=== PATIENT | female | born 1950 | race Caucasian/White ===

== ENCOUNTER 2019-09-13 07:52 | Outpatient (CLI) | payer MEDICARE, SELFPAY ==
--- NOTE | ~2019-09-13 | CT_ITS ---
EXAMINATION: CT lung screening EXAM DATE: 09/13/2019 09:59 INDICATION: Personal history of nicotine dependence. Shortness of breath. TECHNIQUE: Spiral low dose CT of the chest without contrast. Axial, coronal and sagittal images were reviewed. The dose-length product (DLP) for this examination was 152.31 mGy-cm. The exposure was t ailored according to patient size (auto mA exposure control), and iterative reconstruction (ASIR) was used as additional dose reduction technique. There is no prior study for comparison. FINDINGS: There is mild emphysema and hyperinflation. Tracheobronchial tree is patent. There is n o mediastinal, hilar or axillary lymphadenopathy. There are no pleural or pericardial effusions. There is no pneumothorax. Heart normal in size. There is moderate coronary arterial calcification , arterial sclerosis. Small bilateral nephrolithiasis. Moderate to severe chronic appearing compressi on fractures at T7 and T10. There is moderate thoracic spondylosis without osteoblastic or osteolyti c lesions identified. IMPRESSION: Lung-RADS category 1, negative (<1%chance of malignancy); recommend continued LDCT screen ing in 1 year. Reviewed, dictated and finalized at location A. IMPRESSION: Lung-RADS category 1, negative (<1%chance of malignancy); recommend continued LDCT screening in 1 year.
--- NOTE | 2019-09-13 08:18 | ECHO_ITS ---
Patient Info Name: Berta Jansen Age: 69 years : 1950 Gender: Female Ht: 63 in Wt: 160 lbs BSA: 1.82 m2 HR: 78 bpm BP: 170 / 106 mmHg Technical Quality: Fair Exam Date: 09/13/2019 8:46 AM Exam Location: [facility] Pulmonary Patient Status: Outpatient Admit Date: 09/13/2019 Staff Ordering Physician: Mayi Wilson MD Deaf/Hard Of Hearing Specialist: Jacqueline Salamanca RDCS Attending Provider: Mayi Wilson MD Referring Physician: Steve HAIDER; Exam Type: CA echo dop color flow w con Study Info Indications - SOB Complete two-dimensional, color flow and Doppler transthoracic echocardiogram is performed with contrast to opacify the left ventrical and to improve the deliniation of the left ventrical endocarial boarders. Contrast/Agitated Saline Contrast/Ag. Saline: Definity Amount: 1.00 ml Administered By: Jerod Zavaleta RN New IV Access: Right Site Condition: Site dressing applied Summary 1. Left ventricular chamber dimension is normal. 2. Definity contrast administered improved wall motion interpretation. 3. Ventricular septum is sigmoid shaped. 4. Left ventricular systolic function is normal, estimated at 60-65%. 5. There is mildly increased left ventricular wall thickness. 6. The left ventricular diastolic function is grade I diastolic dysfunction. 7. E/e' 11 is mildly elevated. 8. Left atrial chamber dimension is mildly enlarged. 9. There is mild aortic valve sclerosis. 10. The mitral valve has moderately calcified annulus. 11. There is trace mitral valve regurgitation. 12. There is trace tricuspid valve regurgitation. 13. No pulmonary hypertension, estimated pulmonary arterial systolic pressure is 29 mmHg. Left Ventricle Definity contrast administered improved wall motion interpretation. E/e' 11 is mildly elevated. Ventricular septum is sigmoid shaped. Left ventricular chamber dimension is normal. Left ventricular systolic function is normal, estimated at 60-65%. There is mildly increased left ventricular wall thickness. The left ventricular diastolic function is grade I diastolic dysfunction. Right Ventricle Right ventricular chamber dimension is normal. Right ventricular systolic function is normal. Left Atria Left atrial chamber dimension is mildly enlarged. Right Atria Right atrial chamber dimension is normal. Aortic Valve The aortic valve is trileaflet. There is mild aortic valve sclerosis. There is no aortic valve stenosis. There is no aortic valve regurgitation. Pulmonic Valve There is no pulmonic regurgitation. Mitral Valve The mitral valve has moderately calcified annulus. There is no mitral valve stenosis. There is trace mitral valve regurgitation. Tricuspid Valve There is trace tricuspid valve regurgitation. No pulmonary hypertension, estimated pulmonary arterial systolic pressure is 29 mmHg. Pericardium/Pleural There is no pericardial effusion. Inferior Vena Cava Normal inferior vena cava with >50% collapse upon inspiration consistent with normal right atrial pressure, 5 mmHg. Aorta The aortic root size at the sinus of Valsalva is normal. Left Ventricular Outflow Tract Name Value Normal LVOT 2D
[2019-09-13 08:47] LABS: Basophils Percent Auto 0.6 % (0.2-1.2); Eosinophils Absolute Auto 0.2 K/mm3 (0-0.3); Eosinophils Percent Auto 2.8 % (0-4.4); Hematocrit 39.6 % (37.0-47.0); Hemoglobin 12.4 g/dL (12.0-15.0); Immature Granulocyte Absolute 0.05 K/mm3 (0.00-0.031); Immature Granulocyte Percent A 0.8 % (0-0.5); Lymphocytes Absolute Auto 1.53 K/mm3 (0.9-3.2); Lymphocytes Percent Auto 24.8 % (18.3-44.2); Mean Corpuscular HGB Conc 31.3 g/dl (32-36); Mean Corpuscular Hemoglobin 29.8 pg (26-34); Mean Corpuscular Volume 95.2 fl (80-100); Mean Platelet Volume 10.8 fl (7.4-10.4); Monocytes Absolute Auto 0.6 K/mm3 (0.1-0.6); Monocytes Percent Auto 8.9 % (2.6-8.5); Neutrophils Absolute Auto 3.8 K/mm3 (1.3-6.7); Neutrophils Percent Auto 62.1 % (45.5-73.1); Platelet Count Result 189 k/mm3 (150-375); Red Blood Count 4.16 M/mm3 (4.2-5.4); Red Cell Distribution Width 14.6 % (11.5-14.5); White Blood Count 6.2 K/mm3 (4.5-10.0)
[2019-09-13] MEDS: PERFLUTREN LIPID MICROSPHERES 1.5 ML VIAL DILUTED TO 10 ML TOTAL VOLUME IV PUSH (09:43)
[2019-09-16 04:46] LABS: Immunoglobulin G, Serum 1139 mg/dL (600-1540); Immunoglobulin G1 494 mg/dL (382-929); Immunoglobulin G2 549 mg/dL (241-700); Immunoglobulin G3 151 mg/dL (22-178); Immunoglobulin G4 20.1 mg/dL (4.0-86.0)
== END 2019-09-13 07:53 | disposition home or self-care (01) ==
PROVIDERS: Visit Provider Internal Medicine Critical Care Medicine
DX: R06.02 Shortness of breath (principal); Z87.891 Personal history of nicotine dependence; J32.9 Chronic sinusitis, unspecified; I51.7 Cardiomegaly; I25.10 Atherosclerotic heart disease of native coronary artery without angina pectoris
CPT/HCPCS: 36415; 82784; 82785; 82787; 85025; 86003; C8929; G0297

== ENCOUNTER 2020-08-28 13:43 | Outpatient (CLI) | payer MEDICARE, SELFPAY ==
--- NOTE | ~2020-08-28 | CT_ITS ---
EXAMINATION: CT lung screening EXAM DATE: 08/28/2020 14:00 INDICATION: Personal history of nicotine dependence. TECHNIQUE: Spiral low dose CT of the chest without contrast. Axial, coronal and sagittal images were reviewed. The dose-length product (DLP) for this examination was 179.30 mGy-cm. The exposure was t ailored according to patient size (auto mA exposure control), and iterative reconstruction (ASIR) was used as additional dose reduction technique. Comparison is made to prior examination from 09/13/2019. FINDINGS: There is mild emphysema and moderate hyperinflation. There are small regions of mild inter lobular septal thickening again noted, probably mild interstitial lung disease. No suspicious nodular opacities. Tracheobronchial tree is patent. There is no mediastinal, hilar or axillary lymphadenop athy. There are no pleural or pericardial effusions. There is no pneumothorax. Heart normal in size. There is moderate to severe coronary arterial calcification, arterial sclerosis. Small bilat eral nephrolithiasis. Cholelithiasis. Nodular liver contour suspicious for cirrhosis. There is thora cic spondylosis without osteoblastic or osteolytic lesions identified. Thoracic compression fractures are unchanged. IMPRESSION: Lung-RADS category 1, negative (<1%chance of malignancy); recommend continued LDCT screen ing in 1 year. > Reviewed, dictated and finalized at location A. ICULUM DIRECTOR IMPRESSION: Lung-RADS category 1, negative (<1%chance of malignancy); recommend continued LDCT screening in 1 year. >
== END 2020-08-28 13:44 | disposition home or self-care (01) ==
PROVIDERS: Visit Provider Internal Medicine Critical Care Medicine
DX: Z12.2 Encounter for screening for malignant neoplasm of respiratory organs (principal); Z87.891 Personal history of nicotine dependence
CPT/HCPCS: 71271

== ENCOUNTER 2021-09-24 09:49 | Outpatient (CLI) | payer MEDICARE, SELFPAY ==
--- NOTE | ~2021-09-24 | CT_ITS ---
EXAMINATION: CT lung screening DATE: 09/24/2021 10:06 INDICATION: Personal history of nicotine dependence, prior smoker with 40 pack year history TECHNIQUE: Computed tomography (CT) of the chest was performed without intravenous contrast. The dose -length product (DLP) was 183.93 mGy-cm. Automated exposure control and iterative reconstruction tech Promuc were employed. COMPARISON: 08/28/2020 FINDINGS: There is mild emphysema. No suspicious pulmonary nodules are identified. The lungs are free of acute opacities. There is no pleural effusion or pneumothorax. No pathologically enlarged thoraci c lymph nodes are identified. The heart size is normal. There is calcified coronary artery atheroscle rosis. Stones are present in the nondistended gallbladder. There are nonobstructing stones of the kid neys. Compression fractures of the thoracic spine are unchanged. There is severe thoracic spondylosis . IMPRESSION: 1. Lung-RADS category 2: Benign appearance or behavior. Continue annual screening with noncontrast lo w-dose chest CT in 12 months. Reviewed, dictated and finalized at location A. IMPRESSION: 1. Lung-RADS category 2: Benign appearance or behavior. Continue annual screeni ng with noncontrast low-dose chest CT in 12 months.
== END 2021-09-24 09:50 | disposition home or self-care (01) ==
LOC: ANHIMG 09:52
PROVIDERS: Visit Provider Nurse Practitioner Family
DX: Z87.891 Personal history of nicotine dependence (principal)
CPT/HCPCS: 71271

== ENCOUNTER 2021-12-14 08:42 | Outpatient (CLI) | payer MEDICARE, SELFPAY ==
--- NOTE | ~2021-12-14 | MR_ITS ---
EXAMINATION: MR shoulder LT wo con DATE: 12/14/2021 10:05 INDICATION: Left shoulder pain and weakness TECHNIQUE: Magnetic resonance imaging (MRI) of the left shoulder was performed without intravenous co ntrast. Sequences included axial PD-weighted FS FSE, coronal oblique PD-weighted FS FSE, coronal obli que T2-weighted FS FSE, sagittal PD-weighted FS FSE, and sagittal T1-weighted SE. COMPARISON: None. FINDINGS: Coracoacromial arch: The acromion undersurface is curved in morphology (type II). The coracoacromial ligament is normal. M ild acromioclavicular osteoarthritis. Rotator cuff: Mild supraspinatus and moderate infraspinatus tendinopathy. There is a small bursal sided tear at the conjoined portion of the supraspinatus and infraspinatus tendons. The tear at its widest along the b ursal surface where it measures 6 mm AP and extends up to 1.5 cm medially from the greater tuberosity footplate. The tear appears to involve up to two thirds of the tendon thickness. The teres minor ten don is normal. Mild subscapularis tendinopathy without discrete tear. Normal rotator cuff muscle bulk and signal. Biceps tendon, glenoid labrum and glenohumeral cartilage: Likely full-thickness tear of the long head biceps tendon with frayed and attenuated tendon tear laura in at the proximal aspect of the intertubercular groove. The more caudal intertubercular groove and a long head biceps tendon sheath appears empty with likely retraction of the distal tear margin. Articu lar cartilage appears normal although assessment is somewhat limited by some motion blurring on multi ple sequences. There is degenerative tearing of the superior to posterior superior glenoid labrum whi ch appears thickened with diffuse amorphous increased signal. More well-defined linear tear along the free edge of the posterior glenoid labrum. Fluid: Physiologic amount of fluid in the glenohumeral joint and biceps tendon sheath. No loose osteochondr al bodies. Small amount of fluid in the subacromial/subdeltoid bursa consistent with mild bursitis. Bones: Normal marrow signal with no edema, fracture or pathologic marrow replacing process. IMPRESSION: 1. Mild to moderate rotator cuff tendinopathy with small moderate severity bursal sided tear at the i nsertion of the conjoined portion of the supraspinatus and infraspinatus tendons. 2. Tear of the superior to posterior glenoid labrum. 3. Complete tear and distal retraction of the long head biceps tendon which appear to occur near the junction of the intra-articular and extra-articular portions of the tendon. 4. Mild acromioclavicular osteoarthritis with mild underlying subacromial/subdeltoid bursitis. Reviewed, dictated and finalized at location A. IMPRESSION: 1. Mild to moderate rotator cuff tendinopathy with small moderate severity burs al sided tear at the insertion of the conjoined portion of the supraspinatus an d infraspinatus tendons. 2. Tear of the superior to posterior glenoid labrum. 3. Complete tear and distal retraction of the long head biceps tendon which kenan ear to occur near the junction of the intra-articular and extra-articular porti ons of the tendon. 4. Mild acromioclavicular osteoarthritis with mild underlying subacromial/subde ltoid bursitis.
== END 2021-12-14 08:43 | disposition home or self-care (01) ==
PROVIDERS: Visit Provider Orthopaedic Surgery
DX: S43.492A Other sprain of left shoulder joint, initial encounter (principal); S46.112A Strain of muscle, fascia and tendon of long head of biceps, left arm, initial encounter; X58.XXXA Exposure to other specified factors, initial encounter; M19.012 Primary osteoarthritis, left shoulder
CPT/HCPCS: 73221

== ENCOUNTER 2022-06-27 10:20 | Outpatient (CLI) | payer MEDICARE, SELFPAY ==
--- NOTE | 2022-06-27 10:34 | ECG_ITS ---
Measurements Intervals [place] Rate: 81 P: 16 IA: 136 QRS: 1 QRSD: 70 T: 1 QT: 375 QTc: 436 Interpretive Statements SINUS RHYTHM NO PREVIOUS ECG AVAILABLE FOR COMPARISON Electronically Signed On 06-27-2022 14:59:00 [employer]ILL[employer] OFFICER by Asif De Luna M.D.
[2022-06-27 11:13] LABS: Alanine Aminotransferase 29 U/L (6-35); Albumin Level 3.9 g/dL (3.5-5.1); Alkaline Phosphatase 64 U/L (38-126); Anion Gap 4 mmol/L (8-16); Aspartate Amino Transferase 50 U/L (14-36); Bilirubin,Total 0.9 mg/dL (0.2-1.3); Blood Urea Nitrogen 18 mg/dL (7-17); Calcium 8.3 mg/dL (8.4-10.2); Carbon Dioxide 31 mmol/L (22-30); Chloride 102 mmol/L (98-107); Cholesterol 166 mg/dL (0-200); Estimated Glomerular Filt Rate 49; Glucose 105 mg/dL (65-110); HDL Direct 49 mg/dL; Sodium 137 mmol/L (137-145); Triglycerides 104 mg/dL (<150)
[2022-06-27 11:14] LABS: Basophils Absolute Auto 0.1 K/mm3 (0.0-0.1); Basophils Percent Auto 0.9 % (0.2-1.2); Eosinophils Absolute Auto 0.1 K/mm3 (0-0.3); Eosinophils Percent Auto 2.1 % (0-4.4); Hematocrit 41.9 % (37.0-47.0); Hemoglobin 13.3 g/dL (12.0-15.0); Immature Granulocyte Absolute 0.03 K/mm3 (0.00-0.031); Immature Granulocyte Percent A 0.5 % (0-0.5); Lymphocytes Absolute Auto 1.93 K/mm3 (0.9-3.2); Lymphocytes Percent Auto 33.7 % (18.3-44.2); Mean Corpuscular HGB Conc 31.7 g/dl (32-36); Mean Corpuscular Hemoglobin 30.9 pg (26-34); Mean Corpuscular Volume 97.2 fl (80-100); Mean Platelet Volume 10.4 fl (7.4-10.4); Monocytes Absolute Auto 0.5 K/mm3 (0.1-0.6); Monocytes Percent Auto 8.2 % (2.6-8.5); Neutrophils Absolute Auto 3.1 K/mm3 (1.3-6.7); Neutrophils Percent Auto 54.6 % (45.5-73.1); Platelet Count Result 162 k/mm3 (150-375); Red Blood Count 4.31 M/mm3 (4.2-5.4); Red Cell Distribution Width 14.5 % (11.5-14.5); White Blood Count 5.7 K/mm3 (4.5-10.0)
[2022-06-27 11:24] LABS: LDL Cholesterol Direct 73 mg/dL
[2022-06-27 12:01] LABS: Vitamin D 25 Hydroxy > 126.0 ng/mL
[2022-06-27 12:12] LABS: Hemoglobin A1C 6.4 % (<5.7)
== END 2022-06-27 10:21 | disposition home or self-care (01) ==
PROVIDERS: PCP Physician Assistant Medical; Visit Provider Physician Assistant Medical
DX: J45.909 Unspecified asthma, uncomplicated (principal); I10 Essential (primary) hypertension; M81.0 Age-related osteoporosis without current pathological fracture; R73.01 Impaired fasting glucose; R53.83 Other fatigue; E66.9 Obesity, unspecified; R06.02 Shortness of breath; M75.102 Unspecified rotator cuff tear or rupture of left shoulder, not specified as traumatic; F17.210 Nicotine dependence, cigarettes, uncomplicated; Z01.818 Encounter for other preprocedural examination
CPT/HCPCS: 36415; 80053; 80061; 82306; 83036; 84443; 85025; 87081; 93005

== ENCOUNTER 2022-07-03 01:21 | Day surgery (SDC) | payer MEDICARE, SELFPAY ==
[2022-06-18 08:39] VITALS: BMI 30.2
--- NOTE | 2022-06-18 08:52 | PC.NURSE ---
PRE-OP INSTRUCTIONS, PLEASE READ CAREFULLY Report to the Outpatient Waiting Room, entrance under the green pavilion located off [facility], at time _0600_ on date _07/03/22_. Planned Procedure Time: _0730_. Time changes happen often and if your time is changed the preop area will call you the afternoon before. - You and your visitor will be asked to self-screen and do not enter if you have any COVID symptoms. - Only one visitor is requested with a max of two and NO children visitors are allowed at this time. - The patient visitor may be requested to leave or wait in car when not with patient due to distancing restrictions. - A mask is required within the hospital. Patients may have clear liquids (water, carbonated beverages, clear teas, apple juice) until 3 hours prior to surgery (0430 AM) with a maximum of 20 ounces. - No food from midnight until time of surgery Take the following medications with a SIP of water the morning of surgery: _LORAZEPAM, ANORO INHALER__ Medications to discontinue per ANESTHESIA - _VITAMINS/SUPPLEMENTS 3 DAYS PRIOR TO SURGERY, Date to take last dose 06/29/22_ Please no make-up, nail kyrgyz, hairspray, perfume, deodorant, or body powder the day of surgery. No jewelry (including any body piercings) or valuables the day of surgery, leave them at home. Please take a shower or bath the night before, or the morning of, surgery with an antibacterial soap. Wear comfortable, loose fitting clothing. - Jewelry must be removed prior to entering the operating room. Rings and piercings that are not removed may be cut off. - The hospital will not accept responsibility for valuables. - Please leave all valuables, including medications, at home the day of surgery. If you are going home after surgery, a licensed transit driver must drive you home. - NO public transportation without another adult if you receive anesthesia. - We recommend that an adult stay with you for 24 hours following discharge. - We also recommend that you do not drive, make important decision, drink alcoholic beverages, or take any drugs that were not prescribed by your health care provider for at least 24 hours after your discharge time. Follow any additional instructions given to you from your surgeon. If you or anyone in your household have experienced Covid symptoms in the past week, please notify your surgeon or the nurse liaison at the phone number below for possible testing. Telephone instructions given to _PATIENT_and asked if any additional questions and then verbalized understanding. Patient advised to call surgeon office or pre surgery nurse liaison [phone] if any additional questions.
--- NOTE | 2022-06-26 12:57 | PM.IMHP ---
H&P: HPI History of Present Illness Date/Time: 06/26/22 12:57 Chief Complaint: Rotator cuff tear left shoulder Narrative: 72-year-old female who presents today for arthroscopy with mini open left shoulder with rotator cuff repair. Patient is having pain in the shoulder for the better part of this year. She did have a cortisone injection in November following MRI scan which showed significant thinning of the supraspinatus as well as the infraspinatus tendon. There also appears to be a chronic tear of the biceps tendon. Unfortunately she did not get significant improvement of her symptoms from the injection. She states she cannot sleep at night due to the pain in the shoulder. Most pain is over the lateral deltoid. At times it is rather severe and debilitating. Patient feels this point she would rather proceed with repair of the rotator cuff tendon rather than a continuing to treat this nonsurgically. Review of Systems Review of Systems: All systems reviewed & are unremarkable except as noted in HPI and below PMFSH Past Medical History Medical History Anxiety Arthritis Asthma Fatigue GERD (gastroesophageal reflux disease) History of tobacco abuse Osteoporosis Recurrent sinus infections Surgical History Surgical History History of hip replacement 2016 History of hysterectomy 1986 Family History Family History Father Heart disease Mother Carcinoma Dementia Sibling Liver failure Heart attack Social History Social History Social History: worked as an [employer]; worked in the [employer] at [employer] x 18 years; Worked at an [employer] in [place] for 2 years. Smoking packs per day: 1.5 Smoking cigarettes per day: 30.0 Years smoked: 40 Smoking pack-years: 60.00 Smoking status: Former smoker Tobacco type: cigarettes Second hand tobacco smoke exposure: No Smoking end date: 07/01/09 Alcohol intake: current Drinks per week: 2 Substance use: never Substance use type: does not use Lack of Transportation: No Lack of Food: Never True Current Housing: I Have Housing Concerned About Future Housing: No Difficulty Paying Gas/Electric Bills: No Difficulty Paying for Meds: No Currently Unemployed: No Education: High School Diploma/GED Difficulty w/ Childcare or Family Care: No Living arrangements: with family Occupation/Education: occupation Gender identity (if verbalized by the patient): Female Sexual Orientation (if Verbalized by the Patient): Straight or Heterosexual Spiritual care concerns: No Meds Home Medications and Allergies Home Medications Medication Instructions Recorded Confirmed Type calcium carbonate 600 mg calcium 1,200 mg PO DAILY 08/27/19 06/20/22 History (1,500 mg) tablet (Calcium) multivitamin (Multiple Vitamins 1 tablet PO DAILY 08/27/19 06/20/22 History tablet) Anoro Ellipta 62.5 mcg-25 1 inh inhalation Q24H #60 ea 07/18/21 06/20/22 Rx mcg/actuation powder for inhalation (umeclidinium-vilanterol) B-complex with vitamin C 1 tablet PO DAILY 06/18/22 06/20/22 History cholecalciferol (vitamin D3) 125 125 mcg PO DAILY 06/18/22 06/20/22 History mcg (5,000 unit) capsule magnesium 250 mg tablet 250 mg PO DAILY 06/18/22 06/20/22 History albuterol sulfate 90 mcg/actuation 1 - 2 puff inhalation Q4-6H PRN 06/20/22 06/20/22 Rx aerosol inhaler shortness of breath or wheezing #8.5 grams fluocinonide 0.05 % topical cream 1 applic topical BID PRN itching 06/20/22 06/20/22 Rx #60 grams lorazepam 0.5 mg tablet 0.5 mg PO BID PRN Anxiety #60 tabs 06/20/22 06/20/22 Rx omeprazole magnesium 20 mg 20 mg PO DAILY #90 tabs 06/20/22 06/20/22 Rx tablet,delayed release (Pril
--- NOTE | 2022-07-02 13:05 | WPDANESEPPF ---
Anes - Initial Pre Proc Eval Procedure: Operation Date: 07/03/22 07:30 Proposed Procedures p Left Shoulder Arthroscopy, Mini Rotator Cuff Repair, Probable Arthroflex Patch, Proceed as Indicated - Mainor Roberto MD Date/Time: 07/02/22 13:05 Surgeon: Mainor Roberto MD Pre Op Diagnosis: Chronic left shoulder rotator cuff tear Patient Data Age: 72 Gender: F Height: 1.57 m Weight: 75 kg Allergies Allergy/AdvReac Type Severity Reaction Status Date / Time adhesive tape AdvReac Mild SKIN Verified 07/03/22 06:46 IRRITATION Home Medications Medication Instructions Recorded Confirmed Type calcium carbonate 600 mg calcium 1,200 mg PO DAILY 08/27/19 07/03/22 History (1,500 mg) tablet (Calcium) multivitamin (Multiple Vitamins 1 tablet PO DAILY 08/27/19 07/03/22 History tablet) Anoro Ellipta 62.5 mcg-25 1 inh inhalation Q24H #60 ea 07/18/21 07/03/22 Rx mcg/actuation powder for inhalation (umeclidinium-vilanterol) B-complex with vitamin C 1 tablet PO DAILY 06/18/22 07/03/22 History cholecalciferol (vitamin D3) 125 125 mcg PO DAILY 06/18/22 07/03/22 History mcg (5,000 unit) capsule magnesium 250 mg tablet 250 mg PO DAILY 06/18/22 07/03/22 History albuterol sulfate 90 mcg/actuation 1 - 2 puff inhalation Q4-6H PRN 06/20/22 07/03/22 Rx aerosol inhaler shortness of breath or wheezing #8.5 grams fluocinonide 0.05 % topical cream 1 applic topical BID PRN itching 06/20/22 07/03/22 Rx #60 grams lorazepam 0.5 mg tablet 0.5 mg PO BID PRN Anxiety #60 tabs 06/20/22 07/03/22 Rx omeprazole magnesium 20 mg 20 mg PO DAILY #90 tabs 06/20/22 07/03/22 Rx tablet,delayed release (Prilosec OTC) Patient hx anesthesia problems: none Family hx anesthesia problems: none Results Review: All pre-operative results and documents have been reviewed as part of the pre-operative evaluation. [facility] Past Medical History Medical History (Updated 07/02/22 @ 13:06 by Jerome Sierra MD) Anxiety Arthritis Asthma COPD (chronic obstructive pulmonary disease) Fatigue GERD (gastroesophageal reflux disease) History of tobacco abuse HTN (hypertension) Obesity (BMI 30-39.9) Osteoporosis Recurrent sinus infections SOB (shortness of breath) Surgical History Surgical History History of hip replacement 2016 History of hysterectomy 1986 Family History Family History Father Heart disease Mother Carcinoma Dementia Sibling Liver failure Heart attack Social History Social History Social History: worked as an [employer]; worked in the [employer] at [employer] x 18 years; Worked at an [employer] in [place] for 2 years. Smoking packs per day: 1.5 Smoking cigarettes per day: 30.0 Years smoked: 40 Smoking pack-years: 60.00 Smoking status: Former smoker Tobacco type: cigarettes Second hand tobacco smoke exposure: No Smoking end date: 07/01/09 Alcohol intake: current Drinks per week: 2 Substance use: never Substance use type: does not use Lack of Transportation: No Lack of Food: Never True Current Housing: I Have Housing Concerned About Future Housing: No Difficulty Paying Gas/Electric Bills: No Difficulty Paying for Meds: No Currently Unemployed: No Education: High School Diploma/GED Difficulty w/ Childcare or Family Care: No Living arrangements: alone Gender identity (if verbalized by the patient): Female Sexual Orientation (if Verbalized by the Patient): Straight or Heterosexual Spiritual care concerns: No Anes - Eval Final PreProcedure Day of Procedure 07/02/22 13:05 Patient weight: obese Heart: regular rate and rhythm Lungs: clear to auscultation and normal air movement Airway: Mallampati scale class II Neurological:
[2022-07-03] VITALS (8 sets, daily range): BP systolic 145–156; BP diastolic 65–85; PULSE 69–91; RESP 16–20; TEMP 36.8; O2SAT 92–98
[2022-07-03] MEDS: LACTATED RINGERS 1,000 ML 30 ML IV CONT ×2 (06:40→10:41)
[2022-07-03] MEDS: ACETAMINOPHEN 500 MG TABLET 1000 MG PO (06:44)
[2022-07-03] MEDS: KETOROLAC 15 MG/ML VIAL (*BKC) IV PUSH (06:45)
--- NOTE | 2022-07-03 07:12 | WPDHPUPDATE1 ---
History and Physical Update Update Date/Time: 07/03/22 07:12 History and Physical has been reviewed, including an updated exam of the patient. There are NO changes in the patient's condition. Risks, benefits, and alternatives have been discussed and questions answered. Patient agrees to proceed with procedure.
[2022-07-03] MEDS: ceFAZolin 2 GM/D5W 50 ML 2 GM/50 ML BAG IVPB (07:28)
[2022-07-03] MEDS: ceFAZolin SODIUM 1 GM VIAL (08:23)
--- NOTE | 2022-07-03 10:22 | PM.OP ---
Procedure Note - Brief Procedure Note - Brief Date of procedure: 07/03/22 <KRISTEN Lagos - Last Filed: 07/03/22 10:23> 07/03/22 <Mainor Roberto MD - Last Filed: 07/03/22 10:33> Pre-op diagnosis: Chronic left shoulder rotator cuff tear <KRISTEN Lagos - Last Filed: 07/03/22 10:23> Rotator cuff tear left shoulder <KRISTEN Lagos - Last Filed: 07/03/22 10:23> Procedure performed: Arthroscopy left shoulder with mini open rotator cuff repair and dermal patch augmentation <KRISTEN Lagos - Last Filed: 07/03/22 10:23> Description of procedure: 72-year-old female underwent above said procedure. I was involved in the procedure including positioning patient on the OR table as well as 1st chemical laboratory assistant to the time of surgery and getting patient to recovery. Total time spent was 3 hours per <KRISTEN Lagos - Last Filed: 07/03/22 10:23> Surgeon: KRISTEN Lagos <KRISTEN Lagos - Last Filed: 07/03/22 10:23>
--- NOTE | 2022-07-03 10:33 | W.PM.PROC2 ---
Procedure Note - Detailed Date of Procedure 07/03/22 Pre-op Diagnosis Chronic left shoulder rotator cuff tear Post-op Diagnosis Same Procedure Performed Arthroscopic debridement of stump of long head of biceps and mini open rotator cuff repair left rotator cuff tear with Arthrex acellular dermal allograft augmentation to the repair Surgeon Mainor Roberto MD [employer] Bertha Anesthesia General Description of Procedure Patient was brought to the operating room and general anesthesia was administered. She was placed in the beach chair position with the head carefully supported. She had significant upper thoracic kyphosis. She received 2 g of Ancef in weight based vancomycin preoperatively. She did not receive an interscalene block before surgery because of her history of COPD and the increased risk of hypoxia with a block. The left shoulder was prepped draped usual fashion. Standard posterior portal was placed. There was mild chondromalacia anterior aspect of the humeral head. There was degenerative fraying diffusely of the labrum. The long head of the biceps stump was visualized and partially scarred to the overlying rotator cuff interval. The loose portion of the stump was debrided with motorized shaver. The moderate size high-grade articular sided partial-thickness tear was visualized with the full-thickness tear of the supraspinatus tendon visualized. The arthroscope was placed in subacromial space. Anterior outflow portal placed mid lateral portal placed and we gently debrided the subacromial bursal tissue and used the ArthroCare to ablate the coracoacromial ligament tissue and the undersurface of the anterior aspect of the acromion for some decompression. She had a type 1 acromial morphology and therefore we did not remove any acromial bone. The rest the skin was covered with Ioban at this time and outer gloves were changed. A 1-3/4 inch longitudinal incision was made over the tendinous raphe between anterior and middle heads of the deltoid which was incised and about 6 mm of anterior deltoid elevated off the anterior acromion and a self-retaining retractor was placed. The rotator cuff tear was visualized. There was a longitudinal component and we could see that this was an L-shaped tear the longitudinal component involving the anterior supraspinatus tendon. There was still a anterior cord attached and the rotator cuff interval was intact. The full-thickness portion was about a cm wide and then high-grade articular sided partial thickness portion about another cm posteriorly. The greater tuberosity was carefully prepared and there was no significant tissue on the tuberosity so scraping it with the clean 15 blade scalpel cause adequate bleeding and a 2 mm bur was used to make multiple holes for passage of suture adjacent to the articular surface. The tendon itself mobilized easily. We placed a side to side stitch and then a corner stitch through bone and additional 3 2. F Ethibond through bone in a converging fashion to create a spherical contour to the repaired tendon. Again the tendon was clearly thinned and I felt she was therefore at higher risk for recurrent tear an unsatisfactory outcome and less tissue augmentation was utilized. Therefore we opened the package of acellular dermal allograft from ArthArtaic 1.75 thickness and we marked the bursal surface side with marking pen and bathed the graft in Ancef solution the wound was again thoroughly irrigated with Ancef solution. We trimmed the graft down to about 3 x 3 cm and used 0 Ethibond approximately 20 of them to repair the edge of the allograft patch to the supraspinatus infraspinatus and rotator cuff interval tissues stretching it snugly as we went and when we had repaired approximately 240? of the cephalad 2/3 of the graft we found excellent fixation pulling the graft distally with the proximal repair. We then used 2 2. Ethibond placed through the medial aspect of the greater tuberosity and
[2022-07-03] MEDS: oxyCODONE HCL (*CRX) 5 MG TAB IR PO (12:30)
== END 2022-07-03 12:34 | disposition home or self-care (01) ==
PROVIDERS: PCP Physician Assistant Medical; Visit Provider Orthopaedic Surgery
PROC: (CPT 29805; principal; 2022-07-03 07:30)
DX: M75.102 Unspecified rotator cuff tear or rupture of left shoulder, not specified as traumatic (principal); J44.9 Chronic obstructive pulmonary disease, unspecified; I10 Essential (primary) hypertension; K21.9 Gastro-esophageal reflux disease without esophagitis; M81.0 Age-related osteoporosis without current pathological fracture; F41.9 Anxiety disorder, unspecified; Z79.51 Long term (current) use of inhaled steroids; E66.9 Obesity, unspecified; Z68.31 Body mass index [BMI] 31.0-31.9, adult; Z87.891 Personal history of nicotine dependence
CPT/HCPCS: 23412; 29822; A4565; A9270; J0330; J0690; J1100; J1170; J1885; J2250; J2370; J2405; J2704; J2795; J3010; J3370; J7120

== ENCOUNTER 2022-09-25 09:03 | Outpatient (CLI) | payer MEDICARE, SELFPAY ==
--- NOTE | ~2022-09-25 | CT_ITS ---
CT Scan of the Chest without Contrast: Clinical Indication: Lung cancer screening, smoking history Technique: Contiguous sections were acquired throughout the chest without intravenous contrast. Dose reduction technique was used on this scan by utilizing automated exposure control and iterative recon struction technique. The dose-length product (DLP) was 170.99 mGy-cm. COMPARISON: 09/16/2021, 08/28/2020, 09/13/2019 Findings: There is no evidence of any significant mediastinal, hilar or axillary lymphadenopathy. There are ath erosclerotic calcifications of the aorta. Extensive coronary artery calcifications are present. There is no evidence of pleural or pericardial effusion. The lungs are clear. No pulmonary nodules or infiltrates are noted. Images through the upper abdomen reveal nodular contour of liver with calcified gallstones. Stable th oracic spine compression fractures are noted. Impression: Lung-RADS 1: Negative. 12 month follow-up screening CT advised. Cirrhotic liver with cholelithiasis. Stable thoracic spine compression fractures. Reviewed, dictated and finalized at [facility]. Impression: Lung-RADS 1: Negative. 12 month follow-up screening CT advised. Cirrhotic liver with cholelithiasis. Stable thoracic spine compression fractures.
== END 2022-09-25 09:04 | disposition home or self-care (01) ==
PROVIDERS: PCP Physician Assistant Medical; Visit Provider Nurse Practitioner Family
DX: Z12.2 Encounter for screening for malignant neoplasm of respiratory organs (principal); Z87.891 Personal history of nicotine dependence; K80.20 Calculus of gallbladder without cholecystitis without obstruction
CPT/HCPCS: 71271

== ENCOUNTER 2022-10-04 07:54 | Outpatient (CLI) | payer MEDICARE, SELFPAY ==
--- NOTE | ~2022-10-04 | US_ITS ---
EXAMINATION: US abdomen limited DATE: 10/04/2022 08:41 INDICATION: Abnormal findings on lung cancer screening CT TECHNIQUE: Multiple grayscale and Doppler ultrasound images of the abdomen were obtained. COMPARISON: CT, 09/25/2022 FINDINGS: The head and body of the pancreas are normal. The pancreatic tail is obscured by bowel gas. The liver demonstrates coarse echotexture and increased echogenicity. There is nodularity of the alphonso er surface. Normal hepatopetal flow in the main portal vein. Stones are present in the nondistended g allbladder. There is no gallbladder wall thickening or pericholecystic fluid. The normal common bile duct measures 4 mm. There was no sonographic Ayers sign. IMPRESSION: 1. Findings consistent with cirrhosis of the liver. 2. Cholelithiasis without evidence of cholecystitis. Reviewed, dictated and finalized at location B.
== END 2022-10-04 07:55 | disposition home or self-care (01) ==
LOC: ANHIMG 07:57
PROVIDERS: PCP Physician Assistant Medical; Visit Provider Physician Assistant Medical
DX: R93.89 Abnormal findings on diagnostic imaging of other specified body structures (principal); K80.20 Calculus of gallbladder without cholecystitis without obstruction
CPT/HCPCS: 76705

== ENCOUNTER 2023-02-24 02:37 | Day surgery (SDC) | payer MEDICARE, SELFPAY ==
[2023-02-14 14:32] VITALS: BMI 27.3
[2023-02-24 09:40] VITALS: BP 164/81; PULSE 90; RESP 18; TEMP 36.6; O2SAT 96
[2023-02-24] MEDS: LACTATED RINGERS 1,000 ML 150 ML IV CONT (09:49)
--- NOTE | 2023-02-24 10:16 | PM.HPGS ---
History of Present Illness History of Present Illness Consent: Risks, benefits, and alternatives have been discussed and questions answered. Patient agrees to proceed with procedure. Chief complaint: hx of colon polyps Narrative: Berta Jansen is a 73 year old female with colon polyp 5 years ago Review of Systems Constitutional: Constitutional: Denies headache(s) and Denies weakness Eyes: Eyes: Denies blurry vision ENT: Reports Normal hearing present, Denies headache(s) and Denies neck pain Cardiovascular: Cardiovascular: Denies chest pain and Denies dyspnea Respiratory: Respiratory: Denies dyspnea Gastrointestinal: Gastrointestinal: Reports no additional gastrointestinal complaints Genitourinary: Genitourinary: Denies dysuria Musculoskeletal: Musculoskeletal: Denies neck pain Integumentary/Breasts: Skin/Breast: Denies dry skin Neurologic: Reports Normal hearing present, Denies headache(s) and Denies weakness Psychiatric: Psychiatric: Denies anxiety Endocrine: Endocrine: Denies change in body appearance Hematologic/Lymphatic: Hematologic/Lymphatic: Denies easy bleeding Allergic/Immunologic: Allergic/Immunologic: Denies urticaria PMFSH Past Medical History Medical History Anxiety Arthritis Asthma Cirrhosis COPD (chronic obstructive pulmonary disease) GERD (gastroesophageal reflux disease) History of colon polyps History of tobacco abuse HTN (hypertension) Osteoporosis SOB (shortness of breath) White coat syndrome with diagnosis of hypertension Surgical History Surgical History History of bladder suspension procedure 1989 History of hip replacement 2016 left History of hysterectomy 1986- complete History of rotator cuff surgery 07/03/22 Family History Family History Father Heart disease Mother Carcinoma Dementia Sibling Liver failure Heart attack Social History Social History Social History: worked as an auctioneer; worked in the [email or web address] at [employer] x 18 years; Worked at an [employer] in [place] for 2 years. Smoking packs per day: 2 Smoking cigarettes per day: 40.0 Years smoked: 15 Smoking pack-years: 30.00 Smoking status: Former smoker Tobacco type: cigarettes Second hand tobacco smoke exposure: No Smoking end date: 07/01/09 Alcohol intake: current Drinks per week: 2 Substance use: never Substance use type: does not use Lack of Transportation: No Lack of Food: Never True Current Housing: I Have Housing Concerned About Future Housing: No Difficulty Paying Gas/Electric Bills: No Difficulty Paying for Meds: No Currently Unemployed: No Education: High School Diploma/GED Difficulty w/ Childcare or Family Care: No Living arrangements: with family Occupation/Education: occupation Gender identity (if verbalized by the patient): Female Sexual Orientation (if Verbalized by the Patient): Straight or Heterosexual Spiritual care concerns: No Meds Home Medications and Allergies Home Medications Medication Instructions Recorded Confirmed Type calcium carbonate 600 mg calcium 1,200 mg PO DAILY 08/27/19 02/14/23 History (1,500 mg) tablet (Calcium) multivitamin (Multiple Vitamins 1 tablet PO DAILY 08/27/19 02/14/23 History tablet) B-complex with vitamin C 1 tablet PO DAILY 06/18/22 02/14/23 History cholecalciferol (vitamin D3) 125 125 mcg PO DAILY 06/18/22 02/14/23 History mcg (5,000 unit) capsule magnesium 250 mg tablet 250 mg PO DAILY 06/18/22 02/14/23 History albuterol sulfate 90 mcg/actuation 1 - 2 puff inhalation Q4-6H PRN 06/20/22 02/14/23 Rx aerosol inhaler shortness of breath or wheezing #8.5 grams fluocinonide 0.05 % topical cr
--- NOTE | 2023-02-24 10:26 | WPDANESEPPF ---
Anes - Initial Pre Proc Eval Procedure: Operation Date: 02/24/23 11:00 Proposed Procedures p Colonoscopy - Rivas Wilson MD Date/Time: 02/24/23 10:26 Surgeon: Rivas Wilson MD Pre Op Diagnosis: hx of colon polyps Patient Data Age: 73 Gender: F Height: 1.6 m Weight: 70.8 kg Last Vital Signs Temp 97.8 F 02/24/23 09:40 Pulse 90 02/24/23 09:40 Resp 18 02/24/23 09:40 BP 164/81 H 02/24/23 09:40 Pulse Ox 96 02/24/23 09:40 O2 Del Method Room Air 02/24/23 09:40 Allergies Allergy/AdvReac Type Severity Reaction Status Date / Time adhesive tape AdvReac Mild SKIN Verified 02/24/23 09:40 IRRITATION Home Medications Medication Instructions Recorded Confirmed Type calcium carbonate 600 mg calcium 1,200 mg PO DAILY 08/27/19 02/14/23 History (1,500 mg) tablet (Calcium) multivitamin (Multiple Vitamins 1 tablet PO DAILY 08/27/19 02/14/23 History tablet) B-complex with vitamin C 1 tablet PO DAILY 06/18/22 02/14/23 History cholecalciferol (vitamin D3) 125 125 mcg PO DAILY 06/18/22 02/14/23 History mcg (5,000 unit) capsule magnesium 250 mg tablet 250 mg PO DAILY 06/18/22 02/14/23 History albuterol sulfate 90 mcg/actuation 1 - 2 puff inhalation Q4-6H PRN 06/20/22 02/14/23 Rx aerosol inhaler shortness of breath or wheezing #8.5 grams fluocinonide 0.05 % topical cream 1 applic topical BID PRN itching 06/20/22 02/14/23 Rx #60 grams acetaminophen 500 mg tablet 500 mg PO Q6H pain #90 tabs 07/03/22 02/14/23 Rx (Acetaminophen Extra Strength) Anoro Ellipta 62.5 mcg-25 1 inh inhalation Q24H #60 ea 10/28/22 02/14/23 Rx mcg/actuation powder for inhalation (umeclidinium-vilanterol) omeprazole magnesium 20 mg 20 mg PO DAILY #90 tabs 12/13/22 02/14/23 Rx tablet,delayed release (Prilosec OTC) estradiol 0.01% (0.1 mg/gram) 1 g vaginal 2XW #42.5 grams 12/26/22 02/14/23 Rx vaginal cream lorazepam 0.5 mg tablet 0.5 mg PO BID PRN Anxiety #60 tabs 01/14/23 02/14/23 Rx Patient hx anesthesia problems: none Family hx anesthesia problems: none Results Review: All pre-operative results and documents have been reviewed as part of the pre-operative evaluation. [facility] Past Medical History Medical History Anxiety Arthritis Asthma Cirrhosis COPD (chronic obstructive pulmonary disease) GERD (gastroesophageal reflux disease) History of colon polyps History of tobacco abuse HTN (hypertension) Osteoporosis SOB (shortness of breath) White coat syndrome with diagnosis of hypertension Surgical History Surgical History History of bladder suspension procedure 1989 History of hip replacement 2016 left History of hysterectomy 1986- complete History of rotator cuff surgery 07/03/22 Family History Family History Father Heart disease Mother Carcinoma Dementia Sibling Liver failure Heart attack Social History Social History Social History: worked as an [employer]; worked in the [employer] x 18 years; Worked at an [employer] in [place] for 2 years. Smoking packs per day: 2 Smoking cigarettes per day: 40.0 Years smoked: 15 Smoking pack-years: 30.00 Smoking status: Former smoker Tobacco type: cigarettes Second hand tobacco smoke exposure: No Smoking end date: 07/01/09 Alcohol intake: current Drinks per week: 2 Substance use: never Substance use type: does not use Lack of Transportation: No Lack of Food: Never True Current Housing: I Have Housing Concerned About Future Housing: No Difficulty Paying Gas/Electric Bills: No Difficulty Paying for Meds: No Currently Unemployed: No Education: High School Diploma/GED D
[2023-02-24 10:44] VITALS: BP 101/54; PULSE 78; RESP 20; O2SAT 99
[2023-02-24 10:54] VITALS: BP 122/71; PULSE 77; RESP 21; O2SAT 99
[2023-02-24 11:04] VITALS: BP 134/70; PULSE 76; RESP 20; O2SAT 99
== END 2023-02-24 11:14 | disposition home or self-care (01) ==
PROVIDERS: PCP Physician Assistant Medical; Visit Provider Internal Medicine Gastroenterology
PROC: 0DJD8ZZ Inspection of Lower Intestinal Tract, Via Natural or Artificial Opening Endoscopic (ICD-10-PCS; CPT 45378; principal; 2023-02-24 11:00)
DX: Z12.11 Encounter for screening for malignant neoplasm of colon (principal); Z86.010 Personal history of colon polyps; K64.8 Other hemorrhoids; K57.30 Diverticulosis of large intestine without perforation or abscess without bleeding; K21.9 Gastro-esophageal reflux disease without esophagitis; I10 Essential (primary) hypertension; J44.9 Chronic obstructive pulmonary disease, unspecified; Z87.891 Personal history of nicotine dependence
CPT/HCPCS: G0105; J2704; J7120

== ENCOUNTER 2024-05-20 10:14 | Outpatient (CLI) | payer MEDICARE, SELFPAY ==
--- NOTE | ~2024-05-20 | CT_ITS ---
EXAMINATION: CT abdomen wo/w con DATE: 05/20/2024 10:54 INDICATION: Cirrhosis of the liver. TECHNIQUE: Computed tomography (CT) of the abdomen was performed without and with 100 mL Omnipaque 35 0 intravenous contrast. Automated exposure control and iterative reconstruction technique were employ ed. The dose-length product was 1218.04 mGy-cm. COMPARISON: None. FINDINGS: The visualized portions of the lung bases demonstrate mild atelectasis. There is mild emphy sema. No pleural effusion. The heart size is normal. There are coronary artery calcifications. No per icardial effusion. The liver demonstrates a nodular surface contour, consistent with cirrhosis. There is a 0.8 cm hyperenhancing mass in left hepatic lobe. There is a 1.5 cm hyperenhancing mass in right hepatic lobe. There is an 1.1 cm hyperenhancing mass in right hepatic lobe. There are gallstones in the gallbladder, which is normal in size. The spleen is normal in size. There is a small sliding hiat al hernia. The pancreas and adrenal glands are normal. There is cortical thinning of the kidneys. The re are no dilated loops of bowel. There is no ascites. There is severe lumbar spondylosis. There is a chronic burst fracture of T11. There is a chronic compression fracture of L5. IMPRESSION: 1. LI-RADS LR3: Intermediate probability of hepatocellular carcinoma. Reviewed, dictated and finalized at location [facility]. [facility]
[2024-05-20 10:52] LABS: Estimated Glomerular Filt Rate 48
== END 2024-05-20 10:15 | disposition home or self-care (01) ==
PROVIDERS: PCP Physician Assistant Medical; Visit Provider Internal Medicine Gastroenterology
DX: K74.60 Unspecified cirrhosis of liver (principal); K76.9 Liver disease, unspecified
CPT/HCPCS: 74170; Q9967

== ENCOUNTER 2024-08-14 07:44 | Outpatient (CLI) | payer MEDICARE, SELFPAY ==
--- NOTE | ~2024-08-14 | MR_ITS ---
EXAMINATION: MR abdomen wo/w con DATE: 08/14/2024 08:53 INDICATION: Cirrhosis TECHNIQUE: Magnetic resonance imaging (MRI) of the abdomen was performed without and with 15 mL Multi lisa intravenous contrast. Sequences included coronal T2-weighted SS-FSE, coronal and axial FS 2D-F IESTA, axial STIR FSE, axial T2-weighted SS-FSE, axial T2-weighted FS SS-FSE, axial diffusion-weighte d SE, axial dual-echo T1-weighted FSPGR, and axial and coronal T1-weighted LAVA. Postcontrast axial T 1-weighted LAVA images were obtained in a time course. Postcontrast coronal T1-weighted LAVA images w ere obtained. COMPARISON: CT abdomen dated 05/20/2024 FINDINGS: Heart size is normal. No pericardial or pleural effusion. Nodular liver surface consistent with cirrh osis. There is a 1.6 x 1.1 cm enhancing nodule in segment 6 of the liver with subtle increased T2 sig nal and with progressive enhancement on the 5 and 10 minute delayed images which be most consistent w ith focal nodular hyperplasia. Foci of likely transient hepatic intensity difference measuring 7 mm a t the periphery of segment 7 and 10 mm in segment 3 which are subtly visible on the earliest postcont rast images and which equilibrate on subsequent postcontrast imaging with no evident correlate on the remaining sequences. No abnormally enhancing lesions or more concerning lesions with contrast washou t appreciated. There are several small low signal intensity gallstones in the dependent aspect of the normal-appearing gallbladder. No intra or extrahepatic biliary ductal dilation. Spleen, pancreas, bi lateral adrenal glands and kidneys are normal. Numerous colonic diverticula without adjacent inflamma tory stranding to suggest diverticulitis. No bowel obstruction. Normal appendix. No pathologically en larged abdominal or upper pelvic lymphadenopathy. Severe lumbar spondylosis. Chronic T11 compression fracture. IMPRESSION: 1. Cirrhotic liver with 1.6 x 1.1 cm nodule with subtle delayed enhancement in the right hepatic lobe most consistent with focal nodular hyperplasia and 2 small foci of likely transient hepatic intensit y difference in the left and right hepatic lobes as detailed above. 2. Cholelithiasis. Reviewed, dictated and finalized at location A. EON/PRESIDENT IMPRESSION: 1. Cirrhotic liver with 1.6 x 1.1 cm nodule with subtle delayed enhancement in the right hepatic lobe most consistent with focal nodular hyperplasia and 2 sma ll foci of likely transient hepatic intensity difference in the left and right hepatic lobes as detailed above. 2. Cholelithiasis.
--- OUTSIDE RECORDS SUMMARY | 2024-08-14 07:50 | XMS_ITS | Patient Health Summary ---
Author Organization [facility] Address [address] [place] [address] Care Team Providers Care Contact Representative Name Role Phone Iona Marrufo Primary Care Provider + [phone] Note from [facility],non-owned Affiliates and Associated Physician Practices is amultiple site organization consisting of ambulatory clinics and hospital sitesin [place], [place], [place] and [place]. This disclosure is being madepursuant to the Care Everywhere program and may not contain all information available regarding this patient. Last updated 18.[facility] Allergies No known active allergies Medications * Be aware that medications may not be up to date on this document. Alwaysverify current medications with the patient. * umeclidinium-vilanterol (Anoro Ellipta) 62.5-25 MCG/ACT inhaler Anoro Ellipta 62.5 mcg-25 mcg/actuation powder for inhalation INHALE 1 PUFF BY MOUTH EVERY 24 HOURS * albuterol (Proventil;Ventolin) (2.5 MG/3ML) 0.083% nebulizer solution albuterol sulfate 2.5 mg/3 mL (0.083 %) solution for nebulization INHALE 1 VIAL VIA NEBULIZER EVERY 4-6 HOURS NEEDED * albuterol HFA (Proventil; Ventolin; Proair) 108 (90 Base) MCG/ACT inhaler albuterol sulfate HFA 90 mcg/actuation aerosol inhaler INHALE 1 TO 2 PUFFS BY MOUTH EVERY 4 TO 6 HOURS NEEDED FOR SHORTNESS OF BREATH OR WHEEZING * B Complex Vitamins CAPS Take 1 capsule by mouth once daily * calcium citrate-vitamin D 315-250 MG-UNIT tablet Take 1 (one) tablet by mouth once daily * LORazepam (Ativan) 0.5 MG tablet(Started 11/15/2022) TAKE 1 TO 2 TABLETS BY MOUTH TWICE DAILY NEEDED * Magnesium 200 MG TABS 400 mg * omeprazole (PriLOSEC) 20 MG capsule(Started 09/15/2022) omeprazole 20 mg capsule,delayed release TAKE 1 CAPSULE BY MOUTH EVERY DAY Active Problems Problem Noted Date Diagnosed Date Other cirrhosis of liver 11/28/2022 Social History Tobacco Use Types Packs/Day Years Used Date Smoking Tobacco: Former Cigarettes Q uit: 1997 Smokeless Tobacco: Never Tobacco Cessation:Counseling Given: Not Answered Alcohol Use Standard Drinks/Week Comments Yes 0 (1 standard drink = 0.6 oz pur e alcohol) occassional, few times a year Sex and Gender Information Value Date Recorded Sex Assigned at Not on file Gender Identity Not on file Sexual Orientation Not on file Last Filed Vital Signs Vital Sign Reading Time Taken Comments Blood Pressure 167/92 05/11/2024 12:34 PM [employer]LECTR[employer]OVE [employer] Pulse 84 05/11/2024 12:31 PM [employer]OVE [employer] Temperature 36.6 C (97.8 F) 05/11/2024 12:31 PM ELECTR[employer]OVE MECH[employer]IC Respiratory Rate 18 11/28/2022 2:33 PM CDT Oxygen Saturation 96% 05/11/2024 12:31 PM ELECTRIC [employer]OVE [employer]IC Inhaled Oxygen Concentration - - Weight 77.8 kg (171 lb 9.6 oz) 05/11/2024 12:31 PM [employer]LECTRIC [employer]OVE [employer]IC Height 157.5 cm (5' 2 ) 05/11/2024 12:31 PM ELECTRIC [employer]OVE [employer]IC Body Mass Index 31.39 05/11/2024 12:31 PM ELECTRIC [employer]OVE [employer]CH[employer]IC Procedures * BILIRUBIN DIRECT(Performed 05/12/2024) Performed for Cirrhosis of liver without ascites, unspecified hepatic cirrhosis type (HCC) * COMPREHENSIVE METABOLIC PANEL(Performed 05/12/2024) Performed for Cirrhosis of liver without ascites, unspecified hepatic cirrhosis type (HCC) * CBC W AUTO DIFFERENTIAL(Performed 05/12/2024) Performed for Cirrhosis of liver without ascites, unspecified hepatic cirrhosis type (HCC) * ALPHA FETOPROTEIN BLOOD TUMOR MARKER(Performed 05/12/2024) Performed for Cirrhosis of liver without ascites, unspecified hepatic cirrhosis type (HCC) * HEPATITIS B SURFACE ANTIBODY QUANT(Performed 05/12/2024) Performed for Encounter for screening for other viral diseases * HEPATITIS A ANTIBODY(Performed 05/12/2024) Performed for Encounter for screening for other viral diseases * PT-INR(Performed 05/12/2024) Performed for Cirrhosis of liver without ascites, unspecified hepatic cirrhosis type (HCC) * US ABDOMEN LIMITED(Performed 05/11/2024) Performed for Cirrhosis of liver without ascites, unspecified hepatic cirrhosis type (HCC) * ALPHA FETOPROTEIN BLOOD TUMOR MARKER(Performed 11/06/2023) Performed for Cirrhosis of liver without ascites, unspecified hepatic cirrhosis type (HCC) * BILIRUBIN DIRECT(Performed 11/06/2023) Performed for Cirrhosis of liver without ascites, unspecified hepatic cirrhosis type (HCC) * PT-INR SLH(Performed 11/06/2023) Performed for Cirrhosis of liver without ascites, unspecified hepatic cirrhosis type (HCC) * COMPREHENSIVE METABOLIC PANEL(Performed 11/06/2023) Performed for Cirrhosis of liver without ascites, unspecified hepatic cirrhosis type (HCC) * CBC W AUTO DIFFERENTIAL(Performed 11/06/2023) Performed for Cirrhosis of liver without ascites, unspecified hepatic cirrhosis type (HCC) * US ABDOMEN LIMITED(Performed 11/06/2023) Performed for Cirrhosis of liver without ascites, unspecified hepatic cirrhosis type (HCC) * ALPHA FETOPROTEIN BLOOD TUMOR MARKER(Performed 05/06/2023) Performed for Cirrhosis of liver without ascites, unspecified hepatic cirrhosis type (HCC) * BILIRUBIN DIRECT(Performed 05/06/2023) Performed for Cirrhosis of liver without ascites, unspecified hepatic cirrhosis type (HCC) * PT-INR SLH(Performed 05/06/2023) Performed for Cirrhosis of liver without ascites, unspecified hepatic cirrhosis type (HCC) * COMPREHENSIVE METABOLIC PANEL(Performed 05/06/2023) Performed for Cirrhosis of liver without ascites, unspecified hepatic cirrhosis type (HCC) * CBC W AUTO DIFFERENTIAL(Performed 05/06/2023) Performed for Cirrhosis of liver without ascites, unspecified hepatic cirrhosis type (HCC) * US ABDOMEN LIMITED(Performed 05/06/2023) Performed for Other cirrhosis of liver (HCC) * SMOOTH MUSCLE ANTIBODY TITER(Performed 11/28/2022) Performed for Other cirrhosis of liver (HCC) * SMOOTH MUSCLE ANTIBODY W REFLEX TITER(Performed 11/28/2022) Performed for Other cirrhosis of liver (HCC) * HEPATITIS C ANTIBODY(Performed 11/28/2022) Performed for Other cirrhosis of liver (HCC) * HEPATITIS B CORE ANTIBODY TOTAL(Performed 11/28/2022) Performed for Encounter for screening for other viral diseases, Other cirrhosis of liver (HCC) * HEPATITIS B SURFACE ANTIBODY(Performed 11/28/2022) Performed for Encounter for screening for other viral diseases, Other cirrhosis of liver (HCC) * HEPATITIS B SURFACE ANTIGEN W RFLX CONFIRMATION(Performed 11/28/2022) Performed for Encounter for screening for other viral diseases, Other cirrhosis of liver (HCC) * HEPATITIS A ANTIBODY(Performed 11/28/2022) Performed for Encounter for screening for other viral diseases, Other cirrhosis of liver (HCC) * IGG BLOOD(Performed 11/28/2022) Performed for Other cirrhosis of liver (HCC) * IGM BLOOD(Performed 11/28/2022) Performed for Other cirrhosis of liver (HCC) * MITOCHONDRIAL ANTIBODY SCREEN(Performed 11/28/2022) Performed for Other cirrhosis of liver (HCC) * MONIKA BLOOD SCREEN W/REFLEX TITER(Performed 11/28/2022) Performed for Other cirrhosis of liver (HCC) * GGT(Performed 11/28/2022) Performed for Other cirrhosis of liver (HCC) * [id number] BLOOD(Performed 11/28/2022) Performed for Other cirrhosis of liver (HCC) * IRON + TRANSFERRIN PANEL(Performed 11/28/2022) Performed for Other cirrhosis of liver (HCC) * FERRITIN(Performed 11/28/2022) Performed for Other cirrhosis of liver (HCC) * ALPHA FETOPROTEIN BLOOD TUMOR MARKER(Performed 11/28/2022) Performed for Other cirrhosis of liver (HCC) * BILIRUBIN DIRECT(Performed 11/28/2022) Performed for Other cirrhosis of liver (HCC) * PT-INR SLH(Performed 11/28/2022) Performed for Other cirrhosis of liver (HCC) * COMPREHENSIVE METABOLIC PANEL(Performed 11/28/2022) Performed for Other cirrhosis of liver (HCC) * CBC W AUTO DIFFERENTIAL(Performed 11/28/2022) Performed for Other cirrhosis of liver (HCC) * CT LIVER ELASTOGRAPHY(Performed 11/28/2022) Performed for Abnormal finding on imaging of liver Results * ALPHA FETOPROTEIN BLOOD TUMOR MARKER (05/12/2024 9:03 AM ELECTRIC [employer]OVE [employer]CH[employer]IC) Only the most recent of4 resultswithin the time period is included. Pathologist [facility] [place] Alpha-Fetoprotei n Tumor Marker 4.5 ng/mL [facility] Comment: Reference Range: <6.1 The use of AFP as a tumor marker in females is not recommended. This test was performed using the Maria Isabel Marshall chemiluminescent method. Values obtained from different assay methods cannot be used interchangeably. AFP levels, regardless of value, should not be interpreted as absolute evidence of the presence or absence of disease. REPORT COMMENT: FASTING:YES Test Performed at: [facility] [address] [address] ALONA PANDEY Blood BLOOD SPECIMEN / Unknown 05/12/2024 9:03 AM ELECTRIC [employer]OVE [employer]CH[employer]IC 05/12/2024 9:03 AM [employer]LECT[employer] Steven Mondragon MD LAB - CHEMISTRY ORDE BRANDEN [facility] [address] [place] [address] * (ABNORMAL) CBC WITH DIFFERENTIAL (05/12/2024 9:03 AM ELECTRIC STOVE MECH[employer]IC) Only the most recent of4 resultswithin the time period is included. Pathologist [facility] [place] White Blood Cell Count 4.2 3.8 - 10.8 Thousand/ uL [facility] RBC 4.05 3.80 - 5.10 Million/u L [facility] Hemoglobin 12.3 11.7 - 15.5 g/dL [facility] Hematocrit 37.7 35.0 - 45.0 % [facility] MCV 93.1 80.0 - 100.0 fL [facility] MCH 30.4 27.0 - 33.0 pg [facility] MCHC 32.6 32.0 - 36.0 g/dL [facility] Comment: For adults, a slight decrease in the calculated MCHC value (in the range of 30 to 32 g/dL) is most likely not clinically significant; however, it should be interpreted with caution in correlation with other red cell parameters and the patient's clinical condition. RDW 14.0 11.0 - 15.0 % [facility] Platelet Count 137(L) 140 - 400 Thousand/ uL [facility] MPV 11.0 7.5 - 12.5 fL [facility] Neutrophil Absolute 2621 1500 - 7800 cells/uL [facility] Absolute Bands [facility] Metamyelocytes Absolute [facility] Myelocytes Absolute [facility] Absolute Prolymphocytes [facility] Lymphocytes Absolute 1134 850 - 3900 cells/uL [facility] Absolute Monocytes 323 200 - 950 cells/uL [facility] Eosinophils Absolute 92 15 - 500 cells/uL [facility] Basophils Absolute 29 0 - 200 cells/uL [facility] Absolute Blasts [facility] nRBC Absolute [facility] Granulocytes % 62.4 % [facility] Band Neutrophil [facility] Metamyelocytes [facility] Myelocytes [facility] Promyelocytes [facility] Lymphocytes % 27.0 % [facility] Lymphocyte Reactive [facility] Monocytes % 7.7 % [facility] Eosinophils % 2.2 % [facility] Basophils % 0.7 % [facility] Comment: Test Performed at: [facility] [place] [address] MULUGETA ONTIVEROS MD Blasts [facility] nRBC [facility] Comments [facility] Comment: Test Performed at: [facility] [place] [address] MULUGETA ONTIVEROS MD Blood BLOOD SPECIMEN / Unknown 05/12/2024 9:03 AM ELECTRIC STOVE MECH[employer]IC 05/12/2024 9:03 AM ELECTRIC STOVE MECH[employer]IC Steven Mondragon MD LAB - HEMATOLOGY ORD ERABLES [facility] [address] [place] [address] * (ABNORMAL) COMPREHENSIVE METABOLIC PANEL (05/12/2024 9:03 AM ELECTRIC STOVE MECHANIC) Only the most recent of4 resultswithin the time period is included. Glucose 129(H) 65 - 99 mg/dL [facility] Comment: Fasting reference interval For someone without known diabetes, a glucose value >125 mg/dL indicates that they may have diabetes and this should be confirmed with a follow-up test. BUN 19 7 - 25 mg/dL [facility] Creatinine 1.01(H) 0.60 - 1.00 mg/dL [facility] eGFR by Cystatin C 58(L) > OR = 60 mL/min/1.7 3m2 [facility] BUN/Creatinine Ratio 19 6 - 22 (calc) [facility] Sodium 140 135 - 146 mmol/L [facility] Potassium 4.1 3.5 - 5.3 mmol/L [facility] Chloride 104 98 - 110 mmol/L [facility] CO2 27 20 - 32 mmol/L [facility] Calcium 8.7 8.6 - 10.4 mg/dL [facility] Protein Total 6.8 6.1 - 8.1 g/dL [facility] Albumin 3.7 3.6 - 5.1 g/dL [facility] Globulin Total 3.1 1.9 - 3.7 g/dL (calc) [facility] Albumin/Globulin Ratio 1.2 1.0 - 2.5 (calc) [facility] Bilirubin Total 0.8 0.2 - 1.2 mg/dL [facility] Alkaline Phosphatase 66 37 - 153 U/L [facility] AST 37(H) 10 - 35 U/L [facility] ALT 19 6 - 29 U/L [facility] Comment: Test Performed at: [facility] [id number] [place] [address] MULUGETA ONTIVEROS MD Blood BLOOD SPECIMEN / Unknown 05/12/2024 9:03 AM ELECTRIC STOVE MECH[employer]IC 05/12/2024 9:03 AM ELECTRIC STOVE MECHANIC Steven Mondragon MD LAB - CHEMISTRY VICKY OTERO Performing Organization Address [facility] de Phone Number [facility] [address] [place] [address] * BILIRUBIN DIRECT (05/12/2024 9:03 AM ELECTRIC STOVE MECHANIC) Only the most recent of4 resultswithin the time period is included. Bilirubin Direct 0.2 < OR = 0.2 mg/dL [facility] Comment: Test Performed at: [facility] [address] [place] [id number] MULUGETA ONTIVEROS MD Blood BLOOD SPECIMEN / Unknown 05/12/2024 9:03 AM ELECTRIC STOVE MECH[employer]IC 05/12/2024 9:03 AM ELECTRIC STOVE MECH[employer]IC Steven Mondragon MD LAB - CHEMISTRY VICKY OTERO Performing Organization Address [facility] [place] [address] * (ABNORMAL) HEPATITIS B SURFACE ANTIBODY QUANT (05/12/2024 9:01 AM ELECTRIC STOVE MECHANIC) Hepatitis B Virus Surface Antibody Quantitative <5(L) > OR = 10 mIU/mL [facility] Comment: Patient does not have immunity to hepatitis B virus. For additional information, please refer to http://education.Kimbia/faq/VQV028 (This link is being provided for informational/ educational purposes only). Test Performed at: [facility] [id number] [facility] [place] [address] MULUGETA ONTIVEROS MD Blood BLOOD SPECIMEN / Unknown 05/12/2024 9:01 AM ELECTRIC STOVE MECH[employer]IC 05/12/2024 9:01 AM ELECTRIC STOVE MECH[employer]IC Steven Mondragon MD LAB - SEROLOGY ORDER JOHNSON Performing Organization Address [facility] de Phone Number [address] [address] * (ABNORMAL) PT-INR (05/12/2024 9:01 AM ELECTRIC STOVE MECHANIC) INR 1.1 [facility] Comment: Reference Range 0.9-1.1 Moderate-intensity Warfarin Therapy 2.0-3.0 Higher-intensity Warfarin Therapy 3.0-4.0 PT 12.4(H) 9.0 - 11.5 sec [facility] Comment: For additional information, please refer to http://Konbini.Kimbia/faq/NSB138 (This link is being provided for informational/ educational purposes only.) Test Performed at: [facility] [address] [place] [address] MULUGETA ONTIVEROS MD Blood BLOOD SPECIMEN / Unknown 05/12/2024 9:01 AM ELECTRIC STOVE MECHANIC 05/12/2024 9:01 AM ELECTRIC STOVE MECH[employer]IC Steven Mondragon MD LAB - COAGULATION OR DERABLES Performing Organization Address [facility] de Phone Number [address] [address] * (ABNORMAL) HEPATITIS A ANTIBODY (05/12/2024 9:01 AM ELECTRIC STOVE MECHANIC) Only the most recent of2 resultswithin the time period is included. Hepatitis A Virus Antibody Total REACTIVE(A ) NON-REACT GUNNAR [facility] Comment: For additional information, please refer to http://Konbini.Kimbia/faq/AJI737 (This link is being provided for informational/ educational purposes only.) Test Performed at: [facility] [id number] [facility] [place] [address] MULUGETA ONTIVEROS MD Blood BLOOD SPECIMEN / Unknown 05/12/2024 9:01 AM ELECTRIC STOVE MECHANIC 05/12/2024 9:01 AM ELECTRIC STOVE MECH[employer]IC Steven Mondragon MD LAB - CHEMISTRY VICKY OTERO [facility] [address] [place] [address] * US ABDOMEN LIMITED (05/11/2024 11:40 AM ELECTRIC STOVE MECHANIC) Only the most recent of3 resultswithin the time period is included. Anatomical Region Laterality Modality Abdomen Ultrasound 05/11/2024 11:5 4 AM ELECTRIC STOVE MECHANIC Impressions 05/11/2024 12:00 PM ELECTRIC STOVE MECHANIC IMPRESSION: Impression: Course echotexture with nodular outline indicating cirrhosis. Observation: An 9 mm hypoechoic observation in the left lobe. US LI RADS screening/surveillance Category: US LI-RADS score: 2- Subthreshold. Short interval 3-6 month surveillance ultrasound examination recommended. Visualization score: A - no or minimal limitation. Cholelithiasis without evidence of acute cholecystitis. US LI-RADS REFERENCE: US Category: US- 1 negative: No evidence of HCC. US- 2 subthreshold: Observation (S) detected that may warrant short interval US surveillance; observation <10 mm in diameter, not definitely benign. US-3 positive: Observation (S) detected that may warrant multiphase contrast-enhanced imaging; observation equal or more than 10 mm in diameter or new thrombus in the vein. Visualization score: A- no or minimal limitation: limitations, if any, are unlikely to meaningfully affect sensitivity. B- moderate limitations: limitations may obscure small masses. C- severe limitations: Limitations significantly lower sensitivity for focal liver lesions. > Interpreting Provider: Inga Marcelo MD on 05/11/2024 12:00 PM Narrative 05/11/2024 12:00 PM ELECT[employer]IC [employer]OVE MECHANIC PROCEDURE: US ABDOMEN LIMITED, DATE/TIME OF EXAM: 05/11/2024 11:53 AM, LOCATION [facility] INDICATION: K74.60: Cirrhosis of liver without ascites, unspecified hepatic cirrhosis type (HCC) ADDITIONAL CLINICAL INFORMATION: Ordering Provider Reason For Exam: Technologist Note: Additional: COMPARISON: 11/06/2023. Technique: Grayscale and color Doppler ultrasound evaluation of the hepatobiliary system was performed with a liver screening protocol. Findings: Liver visualization score: LI-RADS visualization score: A (no or minimal limitation in the liver visualization) Parenchymal morphology: Normal size and moderate irregular outline. Coarse echogenicity. Liver observations:An approximately 9 mm hypoechoic observation in the left lobe of the liver. Main portal vein: Patent. Flow direction: Diameter: 10 mm. Varices: No varices is seen at the krista hepatis. Ascites: None. Spleen: Spleen is normal size and smooth outline. Spleen measures: 12.3 cm. Gallbladder: Gallstone/stones are identified. No associated imaging features of acute cholecystitis. Bile ducts: Normal caliber. CBD measures 4 mm. Right kidney: Measures 9.6 x 4.2 x 4.0 cm. Right kidney is normal morphology. No focal lesions seen. No stones or hydronephrosis seen. Other findings:None. Procedure Note Inga Marcelo MD - 05/11/2024 PROCEDURE: US ABDOMEN LIMITED, DATE/TIME OF EXAM: 05/11/2024 11:53 AM, LOCATION [facility] INDICATION: K74.60: Cirrhosis of liver without ascites, unspecified hepaticcirrhosis type (HCC) ADDITIONAL CLINICAL INFORMATION: Ordering Provider Reason For Exam: Technologist Note: Additional: COMPARISON: 11/06/2023. Technique: Grayscale and color Doppler ultrasound evaluation of the hepatobiliary system was performed with a liver screening protocol. Findings: Liver visualization score: LI-RADS visualization score: A (no or minimal limitation in the liver visualization) Parenchymal morphology: Normal size and moderate irregular outline.Coarse echogenicity. Liver observations:An approximately 9 mm hypoechoic observation in theleft lobe of the liver. Main portal vein: Patent. Flow direction: Diameter: 10 mm. Varices: No varices is seen at the krista hepatis. Ascites: None. Spleen: Spleen is normal size and smooth outline. Spleen measures: 12.3 cm. Gallbladder: Gallstone/stones are identified. No associated imaging features of acute cholecystitis. Bile ducts: Normal caliber. CBD measures 4 mm. Right kidney: Measures 9.6 x 4.2 x 4.0 cm. Right kidney is normal morphology. No focal lesions seen. No stones or hydronephrosis seen. Other findings:None. IMPRESSION: Impression: Course echotexture with nodular outline indicatingcirrhosis. Observation: An 9 mm hypoechoic observation in the left lobe. US LI RADS screening/surveillance Category: US LI-RADS score: 2- Subthreshold. Short interval 3-6 month surveillance ultrasound examinationrecommended. Visualization score: A - no or minimal limitation. Cholelithiasis without evidence of acute cholecystitis. US LI-RADS REFERENCE: US Category: US- 1 negative: No evidence of HCC. US- 2 subthreshold: Observation (S) detected that may warrant short interval US surveillance; observation <10 mm in diameter, not definitely benign. US-3 positive: Observation (S) detected that may warrant multiphase contrast-enhanced imaging; observation equal or more than 10 mm indiameter or new thrombus in the vein. Visualization score: A- no or minimal limitation: limitations, if any, are unlikely to meaningfully affect sensitivity. B- moderate limitations: limitations may obscure small masses. C- severe limitations: Limitations significantly lower sensitivityfor focal liver lesions. > Interpreting Provider: Inga Marcelo MD on 2:00 PM Steven Mondragon MD US ORDERABLES * (ABNORMAL) PT-INR [facility] (11/06/2023 1:54 PM CDT) Only the most recent of3 resultswithin the time period is included. PT 15.1(H) 12.1 - 14.8 Seconds 11/06/2023 2:48 PM CDT [facility] INR 1.2 See Comment 11/06/2023 2:48 PM CDT [facility] Comment:The suggested therap eutic range for standard coumadin (warfarin) therapy is an INR of 2.0-3.0. For high-risk patients (Mechanical Mitral Valve Prosthesis, etc.), the suggested prophylactic therapeutic range is an INR of 2.5-3.5. Blood BLOOD SPECIMEN / Unknown Lab Venipuncture / Unknown 11/06/2023 1:54 PM CDT 11/06/2023 2:14 PM CDT Steven Mondragon MD LAB - COAGULATION OR DERABLES [facility] [place] [address], [facility] [phone] * (ABNORMAL) SMOOTH MUSCLE ANTIBODY W REFLEX TITER (11/28/2022 4:21 PM CDT) F-Actin Antibody IgG 42(H) 0 - 19 Units 12/01/2022 12:03 AM CDT [facility] ([facility]) Comment: REFERENCE INTERVAL: F-Actin (Smooth Muscle) Antibody, IgG by MUKESH 19 Units or less ....... Negative 20 - 30 Units .......... Weak Positive-Suggest repeat testing in two to three weeks with fresh specimen. 31 Units or greater..... Positive-Suggestive of autoimmune hepatitis type 1 or chronic active hepatitis. F-actin IgG antibodies have been shown to have increased sensitivity for autoimmune hepatitis (AIH) but lower specificity than smooth muscle antibodies (SMA). F-actin IgG antibodies can also be seen in SMA-negative disease controls (non-AIH), especially in patients with primary biliary cirrhosis and chronic hepatitis C infections. Some patients with AIH may be SMA-positive but negative for F-actin IgG. Consider testing for SMA by IFA if suspicion for AIH is strong. Performed By: [facility] [address] [place] [address] Civil Rights Investigator: Sanya Hawthorne MD, PhD Blood BLOOD SPECIMEN / Unknown Lab Venipuncture / Unknown 11/28/2022 4:21 PM CDT 11/28/2022 4:49 PM CDT Steven Mondragon MD LAB - SEROLOGY ORDER [facility]) [address] * MITOCHONDRIAL ANTIBODY SCREEN (11/28/2022 4:21 PM CDT) Mitochondrial M2 Antibody 3.8 0.0 - 24.9 Units 12/01/2022 12:03 AM CDT [facility] [employer] ([facility]) Comment: REFERENCE INTERVAL: Mitochondrial (M2) Antibody, IgG 20.0 Units or less ......... Negative 20.1 - 24.9 Units........... Equivocal 25.0 Units or greater....... Positive Anti-mitochondrial antibodies (AMA) are thought to be present in 90-95% of patients with primary biliary cholangitis (PBC). However, the frequency of detected antibodies may be cohort or assay dependent, as lower sensitivities have been reported. Not all PBC patients are positive for AMA; some patients may be positive for SP100 and/or GP210 antibodies. A negative result does not rule out PBC. Performed By: [facility] [address] [place] [address] Civil Rights Investigator: Sanya Hawthorne MD, PhD Blood BLOOD SPECIMEN / Unknown Lab Venipuncture / Unknown 11/28/2022 4:21 PM CDT 11/28/2022 4:49 PM CDT Steven Mondragon MD LAB - CHEMISTRY VICKY OTERO [facility] [facility]) [address] [place] [address], [facility] * (ABNORMAL) SMOOTH MUSCLE ANTIBODY TITER (11/28/2022 4:21 PM CDT) Smooth Muscle Antibody IgG Titer 1:80(H) <1:20 12/01/2022 10:55 PM CDT [facility] ([facility]) Comment: INTERPRETIVE INFORMATION: Smooth Muscle Ab, IgG Titer Less than 1:20 ........ Negative - No antibody detected. 1:20 - 1:80 .......... Weak Positive - Suggest repeat in two to three weeks with fresh specimen. 1:160 or greater ...... Positive - Suggestive of autoimmune hepatitis or chronic active hepatitis. Performed By: [facility] [address] [place] [address] Civil Rights Investigator: Sanya Hawthorne MD, PhD Blood BLOOD SPECIMEN / Unknown Lab Venipuncture / Unknown 11/28/2022 4:21 PM CDT 11/28/2022 4:49 PM CDT Steven Mondragon MD LAB - CHEMISTRY VICKY OTERO [facility]) [address] * MONIKA BLOOD SCREEN W/REFLEX TITER (11/28/2022 4:21 PM CDT) MONIKA IgG None Detected None Detected 11/30/2022 10:59 PM CDT [facility] ([facility]) Comment: If suspicion of connective tissue disease is strong and MONIKA EIA is negative, consider testing for MONIKA by IFA ([id number]). INTERPRETIVE INFORMATION: Anti-Nuclear Antibodies (MONIKA), IgG by MUKESH Antinuclear Antibodies (MONIKA), IgG by MUKESH: MONIKA specimens are screened using enzyme-linked immunosorbent assay (MUKESH) methodology. All MUKESH results reported as Detected are further tested by indirect fluorescent assay (IFA) using HEp-2 substrate with an IgG-specific conjugate. The MONIKA MUKESH screen is designed to detect antibodies against dsDNA, histones, SS-A (Ro), SS-B (La), Arellano, Arellano/CLAIMS EXAMINER, Scl-70, Salma-1, centromeric proteins, other antigens extracted from the HEp-2 cell nucleus. MONIKA MUKESH assays have been reported to have lower sensitivities than MONIKA IFA for systemic autoimmune rheumatic diseases (SARD). Negative results do not necessarily rule out SARD. Performed By: [facility] [address] [place] [address] Civil Rights Investigator: Sanya Hawthorne MD, PhD Blood BLOOD SPECIMEN / Unknown Lab Venipuncture / Unknown 11/28/2022 4:21 PM CDT 11/28/2022 4:49 PM CDT Steven Mondragon MD LAB - CHEMISTRY VICKY OTERO [facility]) [address] * [id number] BLOOD (11/28/2022 4:21 PM CDT) Nxqar-4-Mjvtkq ypsin 180 90 - 200 mg/dL 11/28/2022 7:19 PM CDT [facility] Blood BLOOD SPECIMEN / Unknown Lab Venipuncture / Unknown 11/28/2022 4:21 PM CDT 11/28/2022 4:49 PM CDT Steven Mondragon MD LAB - CHEMISTRY VICKY OTERO Performing Organization Address City/[facility]/ZIP Co de Phone Number [address] [address], [facility] [phone] * HEPATITIS B SURFACE ANTIBODY (11/28/2022 4:21 PM CDT) Hepatitis B Virus Surface Antibody Non-react gunnar Non-react gunnar 11/28/2022 7:36 PM CDT [facility] Comment: < 8 mIU/mL Hepatitis B surface Antibody (HBsAb). Nonreactive for HBsAb - individual is considered not immune to Hepatitis B Virus infection. Hepatitis B Surface Antibody Quantitative 0.0 <8.0 mIU/mL 11/28/2022 7:36 PM CDT [facility] Comment: Hepatitis B Surface Antibody Numeric Result Interpretation: Nonreactive: <8.0 mIU/mL Indeterminate: 8.0 - 12.0 mIU/mL Reactive: >12.0 mIU/mL Blood BLOOD SPECIMEN / Unknown Lab Venipuncture / Unknown 11/28/2022 4:21 PM CDT 11/28/2022 4:49 PM CDT Steven Mondragon MD LAB - CHEMISTRY VICKY OTERO Performing Organization Address City/[facility]/ZIP Co de Phone Number [address] [address], [place] [phone] * HEPATITIS B CORE ANTIBODY TOTAL (11/28/2022 4:21 PM CDT) HBc Antibody Total Non-reacti ve Non-reacti ve 11/28/2022 7:36 PM CDT [facility] Blood BLOOD SPECIMEN / Unknown Lab Venipuncture / Unknown 11/28/2022 4:21 PM CDT 11/28/2022 4:49 PM CDT Steven Mondragon MD LAB - CHEMISTRY VICKY OTERO Performing Organization Address [facility]/ZIP Co de Phone Number [address] [address], [place] [phone] * HEPATITIS B SURFACE ANTIGEN W RFLX CONFIRMATION (11/28/2022 4:21 PM CDT) Hepatitis B Virus Surface Antigen Non-reacti ve Non-reacti ve 11/28/2022 8:10 PM CDT [facility] Blood BLOOD SPECIMEN / Unknown Lab Venipuncture / Unknown 11/28/2022 4:21 PM CDT 11/28/2022 4:49 PM CDT Steven Mondragon MD LAB - CHEMISTRY VICKY OTERO Performing Organization Address [facility] Co de Phone Number [address] [address], [place] [phone] * (ABNORMAL) GGT (11/28/2022 4:21 PM CDT) GGT 105(H) 9 - 64 Units/L 11/28/2022 5:25 PM CDT [facility] Blood BLOOD SPECIMEN / Unknown Lab Venipuncture / Unknown 11/28/2022 4:21 PM CDT 11/28/2022 4:56 PM CDT Stveen Mondragon MD LAB - CHEMISTRY VICKY OTERO Performing Organization Address City/[facility]/ZIP Co de Phone Number [address] [address], [place] [phone] * IRON + TRANSFERRIN PANEL (11/28/2022 4:21 PM CDT) Iron 91 40 - 150 ug/dL 11/28/2022 9:17 PM CDT [facility] Transferrin 284 174 - 382 mg/dL 11/28/2022 9:17 PM CDT [facility] Transferrin Saturation % 26 16 - 50 % 11/28/2022 9:17 PM CDT [facility] TIBC Calculated 355 240 - 450 ug/dL 11/28/2022 9:17 PM CDT [facility] Blood BLOOD SPECIMEN / Unknown Lab Venipuncture / Unknown 11/28/2022 4:21 PM CDT 11/28/2022 4:49 PM CDT Steven Mondragon MD LAB - CHEMISTRY VICKY OTERO [address] [address], [place] [phone] * IGM BLOOD (11/28/2022 4:21 PM CDT) IgM 62 37 - 286 mg/dL 11/28/2022 9:17 PM CDT [facility] Blood BLOOD SPECIMEN / Unknown Lab Venipuncture / Unknown 11/28/2022 4:21 PM CDT 11/28/2022 4:49 PM CDT Setven Mondragon MD LAB - CHEMISTRY VICKY OTERO Performing Organization Address City/[facility]/ZIP Co de Phone Number [address] [address], [place] [phone] * IGG BLOOD (11/28/2022 4:21 PM CDT) IgG 1,306 767 - 1,590 mg/dL 11/28/2022 9:17 PM CDT [facility] Blood BLOOD SPECIMEN / Unknown Lab Venipuncture / Unknown 11/28/2022 4:21 PM CDT 11/28/2022 4:49 PM CDT Steven Mondragon MD LAB - CHEMISTRY VICKY OTERO [address] [address], [place] [phone] * HEPATITIS C ANTIBODY (11/28/2022 4:21 PM CDT) Hepatitis C Antibody Non-react gunnar Non-reac tive 11/28/2022 8:10 PM CDT [facility] Comment:Hepatitis C Antibody screen indicates no serologic evidence of past or current infection with Hepatitis C Virus. Patients with unexplained liver disease who are immunocompromised or suspected of having acute Hepatitis C infection may benefit from Nucleic Acid Test (IAIN) for Hepatitis C Viral RNA to confirm Hepatitis C status. Blood BLOOD SPECIMEN / Unknown Lab Venipuncture / Unknown 11/28/2022 4:21 PM CDT 11/28/2022 4:49 PM CDT Steven Mondragon MD LAB - CHEMISTRY VICKY OTERO Performing Organization Address City/[facility]/ZIP Co de Phone Number [address] [address], [facility] [phone] * FERRITIN (11/28/2022 4:21 PM CDT) Pathologist [facility] Ferritin 58 13 - 204 ng/mL 11/28/2022 8:10 PM CDT [facility] Blood BLOOD SPECIMEN / Unknown Lab Venipuncture / Unknown 11/28/2022 4:21 PM CDT 11/28/2022 4:49 PM CDT Steven Mondragon MD LAB - CHEMISTRY VICKY OTERO Performing Organization Address City/[facility]/ZIP Co de Phone Number [address] [address], [place] [phone] * PROC FIBROSCAN (11/28/2022 3:13 PM CDT) Narrative Iain-Peng Land MD - 11/28/2022 3:13 PM CDT Peng Land MD 12/02/2022 9:30 PM Diagnosis: Abnormal images of the liver RN verified patient not , no implanted devices and NPO for prior 3 hours. Procedure explained. Date of Exam: 11/28/2022 Liver Stiffness: (LSM, kPa) median: 28.9 IQR (interquartile range): 6.2 IQR/Median% (ideally < 30%): 21% CAP (controlled attenuation parameter): 274 Technical Difficulty: None Ordering Provider: Dr. Mondragon Phone Fax Fibroscan interpretation: I have personally reviewed the Fibroscan report and associated tracings. The calculated Liver Stiffness Measurement (LSM, kPa) indicates that: The probability of advanced liver fibrosis is: very high and the probability of complications of portal hypertension is also high. The loss of ultrasound signal, (controlled attenuation parameter, CAP [dB/m]), indicates that the probability of hepatic steatosis is: moderate. Peng Land MD The following criteria are used to indicate the probability of advanced (stage 3-4) fibrosis: < 7.0 kPa: low 7.0-8.9 kPa: low to moderate 9.0-14.9 kPa: moderate 15-20 kPa: high > 20 kPa: very high Liver stiffness > 20 kPa is also associated with a high probability of complications of portal hypertension including varices and ascites. Liver stiffness > 50 kPa is associated with a high risk of variceal bleeding. These interpretations are based on the following published data: Fay BETTS, Carmine M, Charline M, et al. Accuracy of FibroScan controlled attenuation parameter and liver stiffness measurement in assessing steatosis and fibrosis in patients with nonalcoholic fatty liver disease. Gastroenterology 2019;156:4495-0644. Katalina ALMODOVAR, Lakesha R, Van Natta ML, et al. Vibration-controlled transient elastography to assess fibrosis and steatosis in patients with nonalcoholic fatty liver disease. Clin Gastroenterol Hepatol 2019;17:156-163. Note that scores have been developed that incorporate the Fibroscan liver stiffness measurement from large cohorts of patients with liver biopsies to further refine the ability of Fibroscan to identify patients with NAVARRO and advanced fibrosis. These include the FAST (Fibroscan-AST) score (Laura, 2022) and the Agile3+ and Agile4 scores (Laurent, 202). Laura TA, Van Natta ML, Emilia M, Klever A, et al. Validation of the accuracy of the FAST score for detecting patients with at-risk nonalcoholic steatohepatitis (NAVARRO) in a [place] cohort and comparison to other non-invasive algorithms. PLoS ONE (2021) 17: e9875191. Laurent ALONSO, Nkechi J, Maribel CROSS, et al. Enhanced diagnosis of advanced fibrosis and cirrhosis in individuals with NAFLD using FibroScan-based Agile scores. J Hepatol (2022) 78: 247-259. Fibroscan LSM can also be used with laboratory parameters without formulas to assess prognosis. According to the Baveno-VII criteria (Tripp, 202), Fibroscan LSM ?15 kPa plus a platelet count of ?275l860/L rules out clinically significant portal hypertension (sensitivity and negative predictive value >90%) in patients with compensated advanced chronic liver disease. Tripp R, Lisa J, Judith G, Brody T, Varinder Song on behalf of the Baveno VII Faculty. Baveno VII--Renewing consensus in portal hypertension. J Hepatol (2021) 76: 959-974 Assessing the likelihood of advanced fibrosis in patients with indeterminate liver stiffness measurement (LSM) by Fibroscan (e.g., 8-15 kPa) can be improved by also calculating the FIB-4 score (Kusum et al. Hepatology Communications 2019;3:1918-5619) or NAFLD Fibrosis score (Segovia et al. Clinical Gastroenterology and Hepatology 2019;17:0189-5734 using routine clinical data. Note: 1. Fibroscan cannot reliably identify earlier stages of fibrosis (ie distinguish F0 from F1 and F2) and thus a histologic stage cannot be predicted from the Fibroscan reading. 2. Liver stiffness can be increased by factors other than fibrosis including passive congestion, infiltrative processes, active alcoholism, recent moderate alcohol consumption in the 2 weeks before the exam, biliary obstruction and marked inflammation. The interpretation of the Fibroscan result provided above may not have taken such clinical factors into account. Disease etiology also influences Fibroscan cutoff values for fibrosis stages and the following cutoffs have been proposed (Suman et al, Clin Gastro Hepatol 2015; 13:27-36): Cutoffs for Stage 3 and Stage 4 fibrosis respectively: Hepatitis B: >9 and >11.7 kPa Hepatitis C: >9.5 and >12.5 kPa HCV-HIV: >11 and >14 kPa Cholestatic liver diseases: >10 and >17.9 kPa NAFLD/NAVARRO: >10 and >14 kPa CAP estimates of steatosis: normal <200 dB/m mild 200 to 250 dB/m moderate 250-290 dB/m substantial > 290 dB/m (Note that Fibroscan is not a quantitative measure of liver fat.) These criteria are estimates and may change as additional supporting data becomes available. (This additional interpretive data was last updated 11/02/22.) [email or web address] Steven Mondragon MD PROCEDURE/MINOR SURG ICAL ORDERABLES Care Teams Contact Representative Relationship Specialty Start Date End Date Iona Marrufo PA [address] [place] [address] PCP - General Physician Skin Care Therapist 11/28/22
--- OUTSIDE RECORDS SUMMARY | 2024-08-14 07:50 | XMS_ITS | Encounter Summary ---
Author Organization [facility] Address [address] [place] [address] Phone Care Team Providers Care Heavy Equipment Operator Name Role Phone Anibal Toledo MD Primary Care Provider [phone] Encounter Details Date Type Department Care Team (Late st Contact Info) Description 01/07/2024 Treatment [facility] [address] [facility] [address] [place] [id number] Vandana Schaffer MD [address] [place] [address] [address] [place] [address] Social History Tobacco Use Types Packs/Day Years Used Date Smoking Tobacco: Former Smokeless Tobacco: Never Comments Unknown Sex and Gender Information Value Date Recorded Sex Assigned at Not on file Legal Sex Female 5:50 AM REGISTER CLERK Gender Identity Female 06/15/2018 11:23 AM REGISTER CLERK Sexual Orientation Straight 07/26/2021 8: 23 AM REGISTER CLERK documented as of this encounter Plan of Treatment Not on file documented as of this encounter Visit Diagnoses Not on filedocumented in this encounter Care Teams Heavy Equipment Operator Relationship Specialty Start Date End Date Anibal Toledo MD [facility] [place] [address] PCP - General 12/10/16 documented as of this encounter
--- OUTSIDE RECORDS SUMMARY | 2024-08-14 07:50 | XMS_ITS | Clinical Summary ---
Author Organization [facility] Address [address] [place] [address] Care Team Providers Care Petroleum Engineer Name Role Phone Iona Marrufo Primary Care Provider [phone] Source Comments [facility],non-owned Affiliates and Associated Physician Practices is amultiple site organization consisting of ambulatory clinics and hospital sitesin [place], [place], [place] and [place]. This disclosure is being madepursuant to the Care Everywhere program and may not contain all information available regarding this patient. Last updated 18.[facility] Allergies No known active allergies Medications * Be aware that medications may not be up to date on this document. Alwaysverify current medications with the patient. Medication Sig Dispensed Refills Start Date End Date Status umeclidinium-vilant ursula (Anoro Ellipta) 62.5-25 MCG/ACT inhaler Anoro Ellipta 62.5 mcg-25 mcg/actuation powder for inhalation INHALE 1 PUFF BY MOUTH EVERY 24 HOURS Active albuterol (Proventil;Ventolin ) (2.5 MG/3ML) 0.083% nebulizer solution albuterol sulfate 2.5 mg/3 mL (0.083 %) solution for nebulization INHALE 1 VIAL VIA NEBULIZER EVERY 4-6 HOURS NEEDED Active albuterol HFA (Proventil; Ventolin; Proair) 108 (90 Base) MCG/ACT inhaler albuterol sulfate HFA 90 mcg/actuation aerosol inhaler INHALE 1 TO 2 PUFFS BY MOUTH EVERY 4 TO 6 HOURS NEEDED FOR SHORTNESS OF BREATH OR WHEEZING Active B Complex Vitamins CAPS Take 1 capsule by mouth once daily Active calcium citrate-vitamin D 315-250 MG-UNIT tablet Take 1 (one) tablet by mouth once daily Active LORazepam (Ativan) 0.5 MG tablet TAKE 1 TO 2 TABLETS BY MOUTH TWICE DAILY NEEDED 11/15/2022 Active Magnesium 200 MG TABS 400 mg Active omeprazole (PriLOSEC) 20 MG capsule omeprazole 20 mg capsule,delayed release TAKE 1 CAPSULE BY MOUTH EVERY DAY 09/15/2022 Active Active Problems Problem Noted Date Diagnosed Date Other cirrhosis of liver 11/28/2022 Overview (12/02/2022): 11/28/22 Fibroscan CAP 274, LSM 28.9 kPa Encounters Date Type Department Care Team Description 07/30/2024 Telephone [facility] - [address] [phone] Pauline Dias, road conductor 07/29/2024 Telephone [facility] [address] [place] [phone] Adair Navarro RN Erroneous encounter-disregard 07/29/2024 Telephone [facility] - Nephrology [address] [place] [phone] Ella Shabazz RN Concerns 07/26/2024 Telephone [facility] - GI [address] [place] [phone] Steven Mondragon MD Follow-up 06/04/2024 Telephone [facility] - [address] [phone] Steven Mondragon MD Imaging from Last 3 Months Family History Medical History Relation Name Comments Other - Hepatic/Liver Brother Renal Disease Brother Relation Name Status Comments Brother Social History Tobacco Use Types Packs/Day Years [...] Comments Blood Pressure 167/92 05/11/2024 12:34 PM RETAIL SALES TEAMMATE Pulse 84 05/11/2024 12:31 PM RETAIL SALES TEAMMATE Temperature 36.6 C (97.8 F) 05/11/2024 12:31 PM RETAIL SALES TEAMMATE Respiratory Rate 18 11/28/2022 2:33 PM CDT Oxygen Saturation 96% 05/11/2024 12:31 PM RETAIL SALES TEAMMATE Inhaled Oxygen Concentration - - Weight 77.8 kg (171 lb 9.6 oz) 05/11/2024 12:31 PM RETAIL SALES TEAMMATE Height 157.5 cm (5' 2 ) 05/11/2024 12:31 PM RETAIL SALES TEAMMATE Body Mass Index 31.39 05/11/2024 12:31 PM RETAIL SALES TEAMMATE Plan of Treatment Upcoming Encounters Date Type Department Care Team (Late st Contact Info) Description 11/18/2024 10:00 AM CDT Office [place] [facility] [place] [address] [place] [address], [facility] [place] [address] Steven Mondragon MD [address] [place] [phone] Health Maintenance Due Date Last Done Comments MEDICARE AWV 12 MONTHS 1950 DTAP/TDAP/TD VACCINES (1 - Tdap) 02/03/1967 PNEUMOCOCCAL VACCINE 50+ (1 of 2 - PCV) 02/03/1967 ZOSTER VACCINE (1 of 2) 02/03/1998 HEPATITIS B VACCINE (1 of 3 - Risk 3-dose series) 2008 Respiratory Syncytial Virus (RSV) Vaccine Pt: or over 60 yrs (1 - 1-dose 75+ series) 02/03/2023 COVID-19 VACCINE ( - season) 2024 INFLUENZA VACCINE (#1) 2024 DEPRESSION SCREENING 06/30/2024 BONE DENSITY TESTING Completed 07/31/2021, 06/19/2020, 06/21/2019, Additional history exists HEPATITIS C SCREENING Completed 11/28/2022 HIB VACCINE Aged Out No longer eligi ble based on patient's age to complete this topic HPV VACCINE Aged Out No longer eligi ble based on patient's age to complete this topic MENINGOCOCCAL (Group B) VACCINE Aged Out No longer eligible based on patient's age to complete this topic MENINGOCOCCAL VACCINE Aged Out No rob thalia eligible based on patient's age to complete this topic Goals Goal Patient Goal Type Associated Problems Recent Progress Patient-Stated? Author Medication Management General On track( 024 12:34 PM RETAIL SALES TEAMMATE) Kathrin Bauman RN Note: Expected end date: ongoing Interventions: Take all medications as prescribed Let your doctor know right away about any changes in your medications Make sure to request a refill of your medication at least one week prior to your last dose Procedures Procedure Name Priority Date/Time Associated Diagnosis Comments HEPATITIS C ANTIBODY Routine 11/28/2022 4:21 PM CDT Other cirrhosis of liver (HCC) from Last 3 Months or Most Recently Relevant to Health Maintenance Results * HEPATITIS C ANTIBODY (11/28/2022 4:21 PM CDT) Hepatitis C Antibody Non-react selena Non-reac tive 11/28/2022 8:10 PM CDT [facility] Comment:Hepatitis C Antibody screen indicates no serologic [...] Mondragon MD LAB - CHEMISTRY VICKY OTERO [facility] [address] [place] [address], [facility] [phone] from Last 3 Months or Most Recently Relevant to Health Maintenance Care Teams Petroleum Engineer Relationship Specialty Start Date End Date Iona Marrufo PA [address] [place] [phone] PCP - General Physician Senior Fund Accountant 11/28/22
--- OUTSIDE RECORDS SUMMARY | 2024-08-14 07:50 | XMS_ITS | Referral Summary ---
Author Organization [facility] Address [address] [place] [address] Care Team Providers Care Pin Puller Name Role Phone Anibal Toledo MD Primary Care Provider [phone] Encounters Date Type Department Care Team Description 08/13/2024 11:15 AM GREENHOUSE ASSISTANT - 08/13/2024 11:59 PM GREENHOUSE ASSISTANT Hospital Encounter [address] [address] Age-related osteoporosis without current pathological fracture (Primary Dx) Discharge Disposition: Discharge to home or self care 07/16/2024 3:37 PM GREENHOUSE ASSISTANT - 07/16/2024 11:59 PM GREENHOUSE ASSISTANT Hospital Encounter [address] [address] Age-related osteoporosis without current pathological fracture (Primary Dx) Discharge Disposition: Discharge to home or self care 06/18/2024 3:43 PM GREENHOUSE ASSISTANT - 06/18/2024 11:59 PM GREENHOUSE ASSISTANT Hospital Encounter [address] [address] Age-related osteoporosis without current pathological fracture (Primary Dx) Discharge Disposition: Discharge to home or self care 05/21/2024 3:45 PM GREENHOUSE ASSISTANT - 05/21/2024 11:59 PM GREENHOUSE ASSISTANT Hospital Encounter [address] [address] Age-related osteoporosis without current pathological fracture (Primary Dx) Discharge Disposition: Discharge to home or self care 05/14/2024 Orders Only [facility] [address] [place], [place] [id number] Carmen Waters RN from Last 3 Months Allergies Active Allergy Reactions Criticality Noted Date Comments Other Other (See comments) Low Latex Medications LORazepam (ATIVAN) 0.5 mg tablet 0 8 Active multivit-minera ls/ferrous gluc (MULTI-RASHAD ORAL) VITAMIN B + VITAMIN C +ZINC 1 TABLET DAILY Active famotidine (PEPCID) 20 mg tablet 9 Active POTASSIUM CHLORIDE ER 20 mEq CR tablet Take 1 tablet (20 mEq total) by mouth daily 0 9 Active calcium citrate-vitamin D3 (CITRACAL WITH D) 315 mg-6.25 mcg (250 unit) per tablet Take 1 tablet by mouth daily Ca 600 mg & Vit D 400units Active cholecalciferol (VITAMIN D-3) 25 mcg (1,000 unit) tablet Take 1 tablet (1,000 Units total) by mouth daily Active magnesium gluconate 200 mg tabletIndicatio ns:hypomagnesem ia 2 tablets (400 mg total) Active vitamin B complex capsule Take 1 capsule by mouth daily Active albuterol 2.5 mg /3 mL (0.083 %) nebulizer solution albuterol sulfate 2.5 mg/3 mL (0.083 %) solution for nebulization INHALE 1 VIAL VIA NEBULIZER EVERY 4-6 HOURS NEEDED Active albuterol HFA (PROVENTIL HFA,VENTOLIN HFA,PROAIR HFA) 90 mcg/actuation inhaler albuterol sulfate HFA 90 mcg/actuation aerosol inhaler INHALE 1 TO 2 PUFFS BY MOUTH EVERY 4 TO 6 HOURS NEEDED FOR SHORTNESS OF BREATH OR WHEEZING Active amoxicillin 500 mg capsule TAKE FOUR CAPSULES BY MOUTH ONE HOUR BEFORE APPOINTMENT 3 Active cephalexin (KEFLEX) 500 mg capsule Take 1 capsule (500 mg total) by mouth every 6 (six) hours 3 Active fluocinonide (LIDEX) 0.05 % cream APPLY TOPICALLY TO THE AFFECTED AREA TWICE DAILY DIRECTED NEEDED 3 Active omeprazole (PriLOSEC) 20 mg capsule Take by mouth daily 3 Active oxyCODONE (ROXICODONE) 5 mg immediate release tablet Take 1 tablet (5 mg total) by mouth every 4 (four) hours as needed for pain 3 Active umeclidinium-vi lanteroL (ANORO ELLIPTA) 62.5-25 mcg/actuation blister with device Anoro Ellipta 62.5 mcg-25 mcg/actuation powder for inhalation INHALE 1 PUFF BY MOUTH EVERY 24 HOURS Active traMADoL (ULTRAM) 50 mg tablet tramadol 50 mg tablet TAKE 1 TABLET BY MOUTH FOUR TIMES DAILY NEEDED FOR PAIN Active Active Problems Problem Noted Date Diagnosed Date Vitamin D deficiency disease 07/10/2016 Arthralgia of hip 07/05/2016 Arthritis of knee 07/05/2016 Pain 07/05/2016 Swelling 07/05/2016 Fracture of femur 01/03/2016 [facility] use of bisphosphonates 01/03/2016 Osteoporosis 01/03/2016 Social History Tobacco Use Types Packs/Day Years Used Date Smoking Tobacco: Former Smokeless Tobacco: Never Comments Unknown Sex and Gender Information Value Date Recorded Sex Assigned at Not on file Legal Sex Female 5:50 AM GREENHOUSE ASSISTANT Gender Identity Female 06/15/2018 11:23 AM GREENHOUSE ASSISTANT Sexual Orientation Straight 07/26/2021 8: 23 AM GREENHOUSE ASSISTANT Last Filed Vital Signs Vital Sign Reading Time Taken Comments Blood Pressure 150/72 08/13/2024 11:22 AM GREENHOUSE ASSISTANT Pulse 109 08/13/2024 11:22 AM GREENHOUSE ASSISTANT Temperature 36.3 C (97.4 F) 08/13/2024 11:22 AM GREENHOUSE ASSISTANT Respiratory Rate 24 08/13/2024 11:22 AM GREENHOUSE ASSISTANT Oxygen Saturation 98% 08/13/2024 11:22 AM GREENHOUSE ASSISTANT Inhaled Oxygen Concentration - - Weight 76.2 kg (168 lb) 08/13/2024 11:22 AM GREENHOUSE ASSISTANT Height 158.1 cm (5' 2.25 ) 01/05/2024 12:42 PM C DT Body Mass Index 30.48 01/05/2024 12:42 PM CDT Plan of Treatment Not on file Procedures Procedure Name Priority Date/Time Associated Diagnosis Comments DEXA TBS AXIAL SKELETON BONE DENSITY 1 OR MORE SITES Schedule Routine, Read Routine (OP Routine) 01/05/2024 12:37 PM CDT Age-related osteoporosis without current pathological fracture from Last 3 Months or Most Recently Relevant to Health Maintenance Results * Dexa TBS Axial Skeleton Bone Density 1 or more sites (01/05/2024 12:37 PM CDT) Anatomical Region Laterality Modality Wrist, Body N/A Radiographic Amber ging Narrative 01/05/2024 2:47 PM CDT Patient Name: Berta Walker Date of : 1950 Date of scan: 01/05/2024 Bone mineral density was performed on a [id number] Discovery Densitometer. Based on machine cross-calibration and precision studies the least significant changes of this densitometer is 0.024 g/cm2 at the spine, 0.020 g/cm2 at the total proximal femur, and 0.014g/cm2 at the forearm. HISTORY: This is a 73 y.o. postmenopausal female with a history of osteoporosis. She reports that she has quit smoking. She has never used smokeless tobacco. Currently on treatment with calcium and vitamin D and previously treated with alendronate (Fosamax), zoledronic acid (Reclast), and teriparatide (Forteo). INDICATIONS: Menopause status and history of osteoporosis. FINDINGS: BONE MINERAL DENSITY OF THE LUMBAR SPINE Bone Mineral Density (BMD) of the lumbar spine was measured from L1-L3 and the average density was calculated to be 1.315 gm/cm2. This corresponds to a T-score (standard deviations from the mean of young adults) of 2.7. When compared to the previous study of 10/01/22 there has been a -0.056 gm/cm (-4.1%) decrease in bone density that is considered significant. BONE MINERAL DENSITY OF THE PROXIMAL FEMUR Bone Mineral Density (BMD) of the left hip total was found to be 0.717 gm/cm2. This corresponds to a T-score standard deviations from the mean of young adults of -1.8. Femoral neck is 0.569 gm/cm2 with a T-score (standard deviations from the mean of young adults) of -2.5. When compared to the previous study of 10/01/22 there has been a -0.020 gm/cm (-2.7%) decrease in bone density that is considered significant. SUMMARY: Bone mineral density shows evidence of osteoporosis and marked increase risk of fracture. There has been a significant decrease in bone density since previous measurement. L4 excluded from bone mineral density analysis of the lumbar spine because of bone density being more than 1 standard deviation discrepant relative to one adjacent vertebra. Clinical correlation is recommended. The lumbar spine Trabecular Bone Score is 1.084 which suggests degraded bone microarchitecture compared to the general population. Final decisions regarding diagnostic or therapeutic recommendations should include BMD, TBS, additional clinical risk factors as well the clinical context of the patient. Please see attached TBS results for further details. ADDITIONAL COMMENTS: Postmenopausal Women and Men Over 50: Diagnostic criteria: Osteoporosis: BMD at or below -2.5 T-score; Osteopenia (low bone mass): BMD between -1.0 and -2.5 T-score. If the patient has a history of a fragility fracture, a fracture that occurred with trauma equivalent to a fall from a standing position or less, then the diagnosis is osteoporosis regardless of bone density. The history and data sections of the bone mineral density scan were prepared by Ximena Rea who is accredited by the International Society of Clinical Densitometry. The overall patient assessment and scan interpretation were performed by Vandana Schaffer M.D. who is certified by the International Society of Clinical Densitometry. [id number] Vandana Schaffer MD IM DXA PROCEDURES Final Re sult from Last 3 Months or Most Recently Relevant to Health Maintenance Insurance MEDICARE [facility] Address: [facility] [id number] [place] [address] [facility] MEDICARE [employer] [place] [address] [facility] Care Teams Pin Puller Relationship Specialty Start Date End Date Anibal Toledo MD [address] [place] [id number] PCP - General 12/10/16
--- OUTSIDE RECORDS SUMMARY | 2024-08-14 07:50 | XMS_ITS | Clinical Summary ---
Author Organization [facility] Address [address] [place] [id number] Care Team Providers Care Svp Group Director Name Role Phone Iona Marrufo PA-C Primary Care Provider [phone] Allergies No known active allergies Medications ondansetron 4 MG disintegrating tablet Take 1 tablet (4 mg total) by mouth every 8 (eight) hours as needed for Nausea. 9 tablet 9 Active Active Problems Problem Noted Date Diagnosed Date S/P left rotator cuff repair 07/05/2022 Encounters Date Type Department Care Team Description 06/03/2024 7:00 AM ELECTRONIC PREPRESS OPERATOR - 06/03/2024 11:59 PM [facility] Hospital Encounter [facility] Ultrasound [address] [place] [address] Ryley Arellano MD Discharge Disposition: Home or Self Care (Routine Discharge) 06/03/2024 Travel 06/02/2024 7:57 PM ELECTRONIC PREPRESS OPERATOR - 06/02/2024 9:36 PM [facility] Emergency [facility] Emergency Room [address] [place], [place] [id number] Ryley Arellano MD Ankle Pain Discharge Disposition: Home or Self Care (Routine Discharge) from Last 3 Months Family History Medical History Relation Comments Breast Cancer Neg Hx Social History Tobacco Use Types Packs/Day Years Used Date Smoking Tobacco: Never Assessed Comments Unknown Sex and Gender Information Value Date Recorded Sex Assigned at Not on file Legal Sex Female 8:10 PM CDT Gender Identity Not on file Sexual Orientation Not on file Last Filed Vital Signs Vital Sign Reading Time Taken Comments Blood Pressure 165/98 06/02/2024 9:30 PM ELECTRONIC PREPRESS OPERATOR Pulse 88 06/02/2024 9:30 PM ELECTRONIC PREPRESS OPERATOR Temperature 36.8 C (98.2 F) 06/02/2024 8:01 PM ELECTRONIC PREPRESS OPERATOR Respiratory Rate 17 06/02/2024 9:30 PM ELECTRONIC PREPRESS OPERATOR Oxygen Saturation 95% 06/02/2024 9:30 PM ELECTRONIC PREPRESS OPERATOR Inhaled Oxygen Concentration - - Weight 72.6 kg (160 lb) 06/02/2024 8:01 PM ELECTRONIC PREPRESS OPERATOR Height 172.7 cm (5' 8 ) 06/02/2024 8:01 PM ELECTRONIC PREPRESS OPERATOR Body Mass Index 24.33 06/02/2024 8:01 PM ELECTRONIC PREPRESS OPERATOR Plan of Treatment Health Maintenance Due Date Last Done Comments DTaP, Tdap and Td Vaccines (1 - Tdap) 02/03/1967 Zoster Vaccines (1 of 2) 02/03/1998 Annual Medicare Wellness Visit 02/03/2013 Pneumococcal Vaccine: 65+ Years (2 of 2 - PPSV23 or PCV20) 03/25/2019 03/25/2018 RSV Immunization or 60+ Years (1 - 1-dose 75+ series) 02/03/2023 COVID-19 Vaccine ( - season) 2024 Influenza Adult (#1) 2024 03/25/2018, 04/15/20 17 Dexa Scan (General) Completed 01/05/2024, 10/01/2022, 07/31/2021, Additional history exists Hepatitis C Completed 05/12/2024, 06/0 06/2022, 11/28/2022, Additional history exists Meningococcal B Vaccine Aged Out No l onger eligible based on patient's age to complete this topic Meningococcal Vaccine Aged Out No rob thalia eligible based on patient's age to complete this topic RSV Immunizations Under 20 Months Aged Out No longer eligible based on patient's age to complete this topic Procedures Procedure Name Priority Date/Time Associated Diagnosis Comments USV KAUSHIK DUPLEX LOW EXT LT STAT 06/03/2024 7:41 AM ELECTRONIC PREPRESS OPERATOR Leg swelling XR FOOT LT 3V STAT 06/02/2024 8:23 PM ELECTRONIC PREPRESS OPERATOR XR ANKLE LT 2V STAT 06/02/2024 8:23 PM ELECTRONIC PREPRESS OPERATOR PARTIAL THROMBOPLASTIN TIME,PTT STAT 06/02/2024 8:13 PM ELECTRONIC PREPRESS OPERATOR PROTHROMBIN TIME, VENOUS STAT 06/02/2024 8:13 PM ELECTRONIC PREPRESS OPERATOR BASIC METABOLIC PANEL STAT 06/02/2024 8:13 PM ELECTRONIC PREPRESS OPERATOR D-DIMER, QUANTITATIVE STAT 06/02/2024 8:13 PM ELECTRONIC PREPRESS OPERATOR CBC W/DIFF AUTOMATED STAT 06/02/2024 8:13 PM ELECTRONIC PREPRESS OPERATOR from Last 3 Months Results * USV KAUSHIK DUPLEX LOW EXT LT (06/03/2024 7:41 AM ELECTRONIC PREPRESS OPERATOR) Anatomical Region Laterality Modality Ultrasound 06/03/2024 7:44 AM ELECTRONIC PREPRESS OPERATOR Impressions 06/03/2024 7:45 AM ELECTRONIC PREPRESS OPERATOR IMPRESSION: No evidence of DVT in the left lower extremity. Referred By: RYLEY ARELLANO Interpreted By: Kurt Reyes MD, 06/03/2024 7:44 AM Narrative 06/03/2024 7:45 AM ELECTRONIC PREPRESS OPERATOR [address] [place] [address] EXAMINATION: Left lower EXTREMITY VENOUS DOPPLER ULTRASOUND HISTORY: Left lower leg acute pain and swelling with no known injury. Elevated d-dimer. TECHNIQUE: Transcutaneous ultrasound evaluation of the left lower extremity venous vasculature is performed for analysis of grayscale and Doppler imaging characteristics. COMPARISON: No prior lower extremity venous Doppler ultrasound is available for comparison. FINDINGS: The left common femoral vein, greater saphenous vein, femoral vein in its proximal, mid and distal aspects, popliteal vein, and posterior tibial veins are all identified and demonstrate compressibility on grayscale imaging as well as augmentation of flow and phasicity on Doppler imaging. Procedure Note Kurt Reyes MD - 06/03/2024 [facility] [address] [place] [address] EXAMINATION: Left lower EXTREMITY VENOUS DOPPLER ULTRASOUND HISTORY: Left lower leg acute pain and swelling with no known injury.Elevated d-dimer. TECHNIQUE: Transcutaneous ultrasound evaluation of the left lowerextremity venous vasculature is performed for analysis of grayscale andDoppler imaging characteristics. COMPARISON: No prior lower extremity venous Doppler ultrasound isavailable for comparison. FINDINGS: The left common femoral vein, greater saphenous vein, femoralvein in its proximal, mid and distal aspects, popliteal vein, andposterior tibial veins are all identified and demonstrate compressibilityon grayscale imaging as well as augmentation of flow and phasicity onDoppler imaging. IMPRESSION: No evidence of DVT in the left lower extremity. Referred By: RYLEY ARELLANO Interpreted By: Kurt Reyes MD, 06/03/2024 7:44 AM us Ryley Arellano MD VASC Final Result * XR ANKLE LT 2V (06/02/2024 8:23 PM ELECTRONIC PREPRESS OPERATOR) Anatomical Region Laterality Modality Ankle Radiographic Amber ging 06/02/2024 8:38 PM ELECTRONIC PREPRESS OPERATOR Impressions 06/02/2024 8:39 PM ELECTRONIC PREPRESS OPERATOR IMPRESSION: 1. DIFFUSE SOFT TISSUE SWELLING. NO SOFT TISSUE GAS OR RADIOPAQUE FOREIGN BODY. NO ACUTE OSSEOUS ABNORMALITY. Signed: Raudel Jacobs MD Referred By: Interpreted By: Raudel Jacobs MD, 06/02/2024 8:38 PM Narrative 06/02/2024 8:39 PM ELECTRONIC PREPRESS OPERATOR [facility] [address] [place] [id number] PATIENT NAME: BERTA WALKER EXAM: Left ankle 2 view DATE OF EXAM: 06/02/2024 COMPARISON EXAM: None INDICATION: Pain and swelling TECHNIQUE: AP and lateral left ankle FINDINGS: Diffuse nonspecific soft tissue swelling with diffuse soft tissue calcifications. No evidence of soft tissue gas or radiopaque foreign body. No evidence of acute fracture or focal lytic bone destructive lesion. Calcaneal traction spurs. Procedure Note Raudel Jacobs MD - 06/02/2024 [facility] [address] [place] [address] PATIENT NAME: BERTALACHO WALKER EXAM: Left ankle 2 view DATE OF EXAM: 06/02/2024 COMPARISON EXAM: None INDICATION: Pain and swelling TECHNIQUE: AP and lateral left ankle FINDINGS: Diffuse nonspecific soft tissue swelling with diffuse softtissue calcifications. No evidence of soft tissue gas or radiopaqueforeign body. No evidence of acute fracture or focal lytic bonedestructive lesion. Calcaneal traction spurs. IMPRESSION: 1. DIFFUSE SOFT TISSUE SWELLING. NO SOFT TISSUE GAS OR RADIOPAQUEFOREIGN BODY. NO ACUTE OSSEOUS ABNORMALITY. Signed: Raudel Jacobs MD Referred By: Interpreted By: Raudel Jacobs MD, 06/02/2024 8:38 PM us Ryley Arellano MD GENERAL IMAGING Final Result * XR FOOT LT 3V (06/02/2024 8:23 PM ELECTRONIC PREPRESS OPERATOR) Anatomical Region Laterality Modality Foot Radiographic Amber ging 06/02/2024 8:39 PM ELECTRONIC PREPRESS OPERATOR Impressions 06/02/2024 8:40 PM ELECTRONIC PREPRESS OPERATOR IMPRESSION: 1. NO SIGNIFICANT ACUTE RADIOGRAPHIC ABNORMALITY. Signed: Raudel Jacobs MD Referred By: Interpreted By: Raudel Jacobs MD, 06/02/2024 8:39 PM Narrative 06/02/2024 8:40 PM ELECTRONIC PREPRESS OPERATOR [facility] [address] [place] [address] PATIENT NAME: BERTALACHO WALKER EXAM: Left foot 3 view DATE OF EXAM: 06/02/2024 COMPARISON EXAM: None INDICATION: Pain and swelling TECHNIQUE: AP, lateral and oblique left foot FINDINGS: No acute soft tissue abnormality. No soft tissue gas or radiopaque foreign body. Hallux valgus deformity with bunion formation at the first metatarsal head. No evidence of acute fracture or dislocation. No focal lytic bone destructive lesion. Joint spaces are fairly well-maintained. Calcaneal traction spur. Procedure Note Raudel Jacobs MD - 06/02/2024 [facility] [address] [facility] [place] [address] PATIENT NAME: BERTA WALKER EXAM: Left foot 3 view DATE OF EXAM: 06/02/2024 COMPARISON EXAM: None INDICATION: Pain and swelling TECHNIQUE: AP, lateral and oblique left foot FINDINGS: No acute soft tissue abnormality. No soft tissue gas orradiopaque foreign body. Hallux valgus deformity with bunion formation atthe first metatarsal head. No evidence of acute fracture or dislocation.No focal lytic bone destructive lesion. Joint spaces are fairlywell-maintained. Calcaneal traction spur. IMPRESSION: 1. NO SIGNIFICANT ACUTE RADIOGRAPHIC ABNORMALITY. Signed: Raudel Jacobs MD Referred By: Interpreted By: Raudel Jacobs MD, 06/02/2024 8:39 PM Ryley Arellano MD GENERAL IMAGING Final Result * PARTIAL THROMBOPLASTIN TIME,PTT (06/02/2024 8:13 PM ELECTRONIC PREPRESS OPERATOR) PTT 35.5 27.0 - 36.8 SEC 06/02/2024 8:36 PM ELECTRONIC PREPRESS OPERATOR [facility] 06/02/2024 8:13 PM ELECTRONIC PREPRESS OPERATOR Ryley Arellano MD LABORATORY Final Result [facility] [address] [place] [address], [place] [phone] * (ABNORMAL) PROTIME/INR, VENOUS (06/02/2024 8:13 PM ELECTRONIC PREPRESS OPERATOR) PROTIME 12.7(H) 9.1 - 12.4 SEC 06/02/2024 8:36 PM [facility] INR 1.1 06/02/2024 8:36 PM [facility] Comment: Recommend INR ranges for Oral Anticoagulant Therapy: Mechanical Cardiac Values 2.5-3.5 All others indication 2.0-3.0 06/02/2024 8:13 PM ELECTRONIC PREPRESS OPERATOR us Ryley Arellano MD LABORATORY Final Result [facility] [address] [place] [address], * (ABNORMAL) BASIC METABOLIC PANEL (06/02/2024 8:13 PM ELECTRONIC PREPRESS OPERATOR) [facility] GLUCOSE 165(H) 70 - 99 MG/DL 06/02/2024 8:42 PM [facility] BUN 25(H) 7 - 18 MG/DL 06/02/2024 8:42 PM [facility] CREATININE S/P/B 1.14(H) 0.55 - 1.02 MG/DL 06/02/2024 8:42 PM [facility] SODIUM S/P/B 143 136 - 145 MMOL/L 06/02/2024 8:42 PM [facility] POTASSIUM S/P/B 4.1 3.5 - 5.1 MMOL/L 06/02/2024 8:42 PM [facility] CHLORIDE S/P/B 106 100 - 108 MMOL/L 06/02/2024 8:42 PM [facility] CO2 27.7 21 - 32 MMOL/L 06/02/2024 8:42 PM [facility] CALCIUM S/P/B 9.2 8.5 - 10.1 MG/DL 06/02/2024 8:42 PM ELECTRONIC PREPRESS OPERATOR [facility] ANION GAP 9.3 5 - 15 MMOL/L 06/02/2024 8:42 PM [facility] BUN CREATININE RATIO 21.9 6 - 26 06/02/2024 8:42 PM [facility] GFR ESTIMATE 50(L) >90 ML/MIN/1.7 3 M2 06/02/2024 8:42 PM [facility] Comment: NOTE: eGFR is not calculated for patients <18 years of age. This is an estimated GFR calculation using the new CKD EPI creatinine equation without race and so does not require a correction factor for race. This estimated GFR should not be used for calculating drug doses. 06/02/2024 8:13 PM ELECTRONIC PREPRESS OPERATOR Ryley Arellano MD LABORATORY Final Result Performing Organization Address [facility] Co de Phone Number [facility] [address] [place] [address], [place] [phone] * (ABNORMAL) D-DIMER, QUANTITATIVE (06/02/2024 8:13 PM ELECTRONIC PREPRESS OPERATOR) [facility] D-DIMER 932(H) 0 - 500 ng{FEU}/mL 06/02/2024 8:36 PM [facility] Comment: D-Dimer values less than or equal to 500 ng/mL FEU have a negative predictive value of >95% for exclusion of deep vein thrombosis and pulmonary embolism. In patients over 50 (who tend to have higher normal baseline D-Dimer values), recent studies suggest age-adjusted D-Dimer cutoff values (calculated as: age [years] x 10 ng/mL) result in equivalent outcomes and no additional false negative findings. 06/02/2024 8:13 PM ELECTRONIC PREPRESS OPERATOR us Ryley Arellano MD LABORATORY Final Result Performing Organization Address [facility] Co de Phone Number [facility] [address] [place] [address], [place] [phone] * (ABNORMAL) CBC W/DIFF AUTOMATED (06/02/2024 8:13 PM ELECTRONIC PREPRESS OPERATOR) [facility] Signature WBC 5.24 4.4 - 11.0 x10'3/uL 06/02/2024 8:31 PM [facility] RBC 4.07(L) 4.50 - 5.10 x10'6/uL 06/02/2024 8:31 PM [facility] HGB 12.1(L) 12.3 - 15.3 G/DL 06/02/2024 8:31 PM [facility] HCT 38.1 35.9 - 44.6 % 06/02/2024 8:31 PM [facility] MCV 93.6 80.0 - 96.0 FL 06/02/2024 8:31 PM [facility] MCH 29.7 25.3 - 30.9 PG 06/02/2024 8:31 PM [facility] MCHC 31.8 31.0 - 34.1 G/DL 06/02/2024 8:31 PM [facility] RDW 15.1 12.4 - 15.1 % 06/02/2024 8:31 PM [facility] PLT 140(L) 151 - 353 x10'3/uL 06/02/2024 8:31 PM [facility] MPV 10.2 9.6 - 12.0 FL 06/02/2024 8:31 PM [facility] RBC MORPHOLOGY NORMAL 06/02/2024 8:31 PM [facility] PLT MORPH. NORMAL 06/02/2024 8:31 PM [facility] WBC MORPHOLOGY NORMAL 06/02/2024 8:31 PM [facility] LYMPHOCYTES % 26.7 15.8 - 45.0 % 06/02/2024 8:31 PM [facility] NEUTROPHILS % 59.9 42.1 - 71.9 % 06/02/2024 8:31 PM [facility] MONOCYTES % 10.3 5.7 - 12.5 % 06/02/2024 8:31 PM [facility] EOSINOPHILS 2.1 0.0 - 5.6 % 06/02/2024 8:31 PM [facility] BASOPHILS 0.8 0.0 - 1.3 % 06/02/2024 8:31 PM [facility] ABS. NEUTROPHILS 3.14 1.40 - 6.00 x10'3/uL 06/02/2024 8:31 PM [facility] IMMATURE GRANS % 0.2 0.0 - 0.5 % 06/02/2024 8:31 PM [facility] ABS. LYMPHOCYTES 1.40 0.80 - 4.70 x10'3/uL 06/02/2024 8:31 PM [facility] 06/02/2024 8:13 PM ELECTRONIC PREPRESS OPERATOR us Ryley Arellano MD LABORATORY Final Result Performing Organization Address City/State/[facility] Co de Phone Number [facility] [address] [place] [address], from Last 3 Months Insurance MEDICARE [employer] Care Teams Svp Group Director Relationship Specialty Start Date End Date Iona Marrufo PA-C PCP - General NURSE PRACTITIONER 03/13/19
--- OUTSIDE RECORDS SUMMARY | 2024-08-14 07:50 | XMS_ITS | Encounter Summary ---
Author Organization [facility] Healthcare Address [address] [place] [address] Care Team Providers Care Safety Fire Boss Name Role Phone Anibal Toledo MD Primary Care Provider [phone] Reason for Visit * Episode Based Medications (Routine) - Authorized Specialty Diagnoses / Procedures Referred By Contac t Referred To Contact Diagnoses Age-related osteoporosis without current pathological fracture Vandana Schaffer MD [address] [facility] [address] [place] [address] Phone: tel: fax: [address] [address] Phone: tel: fax: Referral ID Status Reason Start Date Expiration Date V isits Requested Visits Authorized [id number] Authorized 01/07/2024 06/29/2024 1 99 Encounter Details Date Type Department Care Team (Latest Contact Info) Description 08/13/2024 11:15 AM ASSEMBLER MOVEMENT - 08/13/2024 11:59 PM ASSEMBLER MOVEMENT Hospital Encounter [address] [address] Age-related osteoporosis without current pathological fracture (Primary Dx) Discharge Disposition: Discharge to home or self care Social History Tobacco Use Types Packs/Day Years Used Date Smoking Tobacco: Former Smokeless Tobacco: Never Comments Unknown Sex and Gender Information Value Date Recorded Sex Assigned at Not on file Legal Sex Female 5:50 AM ASSEMBLER MOVEMENT Gender Identity Female 06/15/2018 11:23 AM ASSEMBLER MOVEMENT Sexual Orientation Straight 07/26/2021 8: 23 AM ASSEMBLER MOVEMENT documented as of this encounter Last Filed Vital Signs Vital Sign Reading Time Taken Comments Blood Pressure 150/72 08/13/2024 11:22 AM ASSEMBLER MOVEMENT Pulse 109 08/13/2024 11:22 AM ASSEMBLER MOVEMENT Temperature 36.3 C (97.4 F) 08/13/2024 11:22 AM ASSEMBLER MOVEMENT Respiratory Rate 24 08/13/2024 11:22 AM ASSEMBLER MOVEMENT Oxygen Saturation 98% 08/13/2024 11:22 AM ASSEMBLER MOVEMENT Inhaled Oxygen Concentration - - Weight 76.2 kg (168 lb) 08/13/2024 11:22 AM ASSEMBLER MOVEMENT Height - - Body Mass Index 30.48 01/05/2024 12:42 PM CDT documented in this encounter Medications at Time of Discharge albuterol 2.5 mg /3 mL (0.083 %) nebulizer solution albuterol sulfate 2.5 mg/3 mL (0.083 %) solution for nebulization INHALE 1 VIAL VIA NEBULIZER EVERY 4-6 HOURS NEEDED albuterol HFA (PROVENTIL HFA,VENTOLIN HFA,PROAIR HFA) 90 mcg/actuation inhaler albuterol sulfate HFA 90 mcg/actuation aerosol inhaler INHALE 1 TO 2 PUFFS BY MOUTH EVERY 4 TO 6 HOURS NEEDED FOR SHORTNESS OF BREATH OR WHEEZING amoxicillin 500 mg capsule TAKE FOUR CAPSULES BY MOUTH ONE HOUR BEFORE APPOINTMENT 08/23/2022 calcium citrate-vitamin D3 (CITRACAL WITH D) 315 mg-6.25 mcg (250 unit) per tablet Take 1 tablet by mouth daily Ca 600 mg & Vit D 400units cephalexin (KEFLEX) 500 mg capsule Take 1 capsule (500 mg total) by mouth every 6 (six) hours 07/03/2022 cholecalciferol (VITAMIN D-3) 25 mcg (1,000 unit) tablet Take 1 tablet (1,000 Units total) by mouth daily famotidine (PEPCID) 20 mg tablet 05/17/2019 fluocinonide (LIDEX) 0.05 % cream APPLY TOPICALLY TO THE AFFECTED AREA TWICE DAILY DIRECTED NEEDED 09/20/2022 LORazepam (ATIVAN) 0.5 mg tablet 0 10/23/2017 magnesium gluconate 200 mg tabletIndication s:hypomagnesemia 2 tablets (400 mg total) multivit-mineral s/ferrous gluc (MULTI-RASHAD ORAL) VITAMIN B + VITAMIN C +ZINC 1 TABLET DAILY omeprazole (PriLOSEC) 20 mg capsule Take by mouth daily 09/15/2022 oxyCODONE (ROXICODONE) 5 mg immediate release tablet Take 1 tablet (5 mg total) by mouth every 4 (four) hours as needed for pain 09/17/2022 POTASSIUM CHLORIDE ER 20 mEq CR tablet Take 1 tablet (20 mEq total) by mouth daily 0 03/16/2019 traMADoL (ULTRAM) 50 mg tablet tramadol 50 mg tablet TAKE 1 TABLET BY MOUTH FOUR TIMES DAILY NEEDED FOR PAIN umeclidinium-gopal anteroL (ANORO ELLIPTA) 62.5-25 mcg/actuation blister with device Anoro Ellipta 62.5 mcg-25 mcg/actuation powder for inhalation INHALE 1 PUFF BY MOUTH EVERY 24 HOURS vitamin B complex capsule Take 1 capsule by mouth daily documented as of this encounter Discharge Disposition Disposition Code Departure Means Destination Discharge to home or self care documented in this encounter Plan of Treatment Not on file documented as of this encounter Visit Diagnoses Diagnosis Age-related osteoporosis without current pathological fracture- Primary documented in this encounter Administered Medications Inactive Administered Medications - up to 3 most recent administrations Medication Order MAR Action Action Date Dose Rate Site romosozumab-aqqg (EVENITY) 210 mg/2.34 mL subcutaneous syringe 210 mg 210 mg, subcutaneous, Once, On Fri08/13/24 at 1200, For 1 dose, Two separate subcutaneous injections are needed to administer the total dose of 210 mg. Inject two syringes, one after the other. Administer to abdomen, thigh, or upper arm Refrigerate. Allow to sit at room temperature for at least 30 minutes before injection. Do not lead software test engineer any other way. Administer into the abdomen, thigh, or outer area of upper arm. Do not administer second injection into the same spot used for the first injection.Indications:Age -related osteoporosis without current pathological fracture Given 08/13/2024 11:34 AM ASSEMBLER MOVEMENT 210 mg Left Lower Abdomen documented in this encounter Orders Medications Ordered That Nahid ht Not Have Been Administered Count Last Ordered Date First Ordered Date romosozumab-aqqg (EVENITY) 2 10 mg/2.34 mL subcutaneous syringe 210 mg 1 08/13/2024 Appointment Requests Count Last Ordered Date Fi rst Ordered Date INFUSION APPT REQUEST 30 MIN 1 08/13/2024 documented in this encounter Care Teams Safety Fire Boss Relationship Specialty Start Date End Date Anibal Toledo MD [address] [place] [address] PCP - General 12/10/16 documented as of this encounter
--- OUTSIDE RECORDS SUMMARY | 2024-08-14 07:50 | XMS_ITS | Encounter Summary ---
Author Organization [facility] Address [address] [place] [address] Phone Care Team Providers Care Director Financial Analysis Name Role Phone Anibal Toledo MD Primary Care Provider [phone] Encounter Details Date Type Department Care Team (Late st Contact Info) Description 06/28/2019 Treatment [facility] [address] [facility] [address] Office [address] [place] [phone] Vandana Schaffer MD [address] [facility] [address] [place] [address] Social History Tobacco Use Types Packs/Day Years Used Date Smoking Tobacco: Former Smokeless Tobacco: Never Comments Unknown Sex and Gender Information Value Date Recorded Sex Assigned at Not on file Legal Sex Female 5:50 AM PHOTO JOURNALIST Gender Identity Female 06/15/2018 11:23 AM PHOTO JOURNALIST Sexual Orientation Straight 07/26/2021 8: 23 AM PHOTO JOURNALIST documented as of this encounter Plan of Treatment Not on file documented as of this encounter Visit Diagnoses Not on filedocumented in this encounter Care Teams Director Financial Analysis Relationship Specialty Start Date End Date Anibal Toledo MD [address] [place] [address] PCP - General 12/10/16 documented as of this encounter
--- OUTSIDE RECORDS SUMMARY | 2024-08-14 07:50 | XMS_ITS | Referral Summary ---
Author Organization [facility] Address [address] [place] [address] Care Team Providers Care Rail Car Welder Name Role Phone Iona Marrufo Primary Care Provider [phone] Source Comments [facility],non-owned Affiliates and Associated Physician Practices is amultiple site organization consisting of ambulatory clinics and hospital sitesin [place], [place], [place] and [place]. This disclosure is being madepursuant to the Care Everywhere program and may not contain all information available regarding this patient. Last updated 18.[facility] Encounters Date Type Department Care Team Description 07/30/2024 Telephone [facility] [address] [facility], [place] [phone] Pauline Dias, food selector 07/29/2024 Telephone [facility] [address]L [address] [place] [phone] Adair Navarro, RN Erroneous encounter-disregard 07/29/2024 Telephone [facility] - Nephrology [address] [place] [phone] Ella Shabazz, NATHANIEL Concerns 07/26/2024 Telephone [facility] [address] [place] [phone] Steven Mondragon MD Follow-up 06/04/2024 Telephone [facility] [address] [place] [address] Steven Mondragon MD Imaging from Last 3 Months Allergies No known active allergies Medications * [...] 11/28/22 Fibroscan CAP 274, LSM 28.9 kPa Social History Tobacco Use Types Packs/Day Years [...] Comments Blood Pressure 167/92 05/11/2024 12:34 PM ADJUNCT TEACHER Pulse 84 05/11/2024 12:31 PM ADJUNCT TEACHER Temperature 36.6 C (97.8 F) 05/11/2024 12:31 PM ADJUNCT TEACHER Respiratory Rate 18 11/28/2022 2:33 PM CDT Oxygen Saturation 96% 05/11/2024 12:31 PM ADJUNCT TEACHER Inhaled Oxygen Concentration - - Weight 77.8 kg (171 lb 9.6 oz) 05/11/2024 12:31 PM ADJUNCT TEACHER Height 157.5 cm (5' 2 ) 05/11/2024 12:31 PM ADJUNCT TEACHER Body Mass Index 31.39 05/11/2024 12:31 PM ADJUNCT TEACHER Plan of Treatment Upcoming Encounters Date Type Department Care Team (Late st Contact Info) Description 11/18/2024 10:00 AM CDT Office Visit [facility] - [facility] [address] [place] [phone] Steven Mondragon MD [address] [place] [phone] Goals Goal Patient Goal Type Associated Problems Recent Progress Patient-Stated? Author Medication Management General On track( 024 12:34 PM ADJUNCT TEACHER) Kathrin Bauman, RN Note: Expected end date: ongoing Interventions: [...] selena Non-reac tive 11/28/2022 8:10 PM CDT [facility] Comment:Hepatitis C Antibody screen [...] Steven Mondragon MD LAB - CHEMISTRY VICKY Lord Organization Address City/State/[facility] Co de Phone Number [facility] [address] [place] [address], [facility] [phone] from Last 3 Months or Most Recently Relevant to Health Maintenance Care Teams Rail Car Welder Relationship Specialty Start Date End Date Iona Marrufo PA [address] [place] [phone] PCP - General Physician Applications Packager 11/28/22
--- OUTSIDE RECORDS SUMMARY | 2024-08-14 07:50 | XMS_ITS | Clinical Summary ---
Author Organization [facility] Address [address] [place] [address] Care Team Providers Care Air Commodore Name Role Phone Anibal Toledo MD Primary Care Provider Allergies Active Allergy Reactions Criticality Noted Date [...] 07/05/2016 Swelling 07/05/2016 Fracture of femur 01/03/2016 retirement use of bisphosphonates 01/03/2016 Osteoporosis 01/03/2016 Encounters Date Type Department Care Team Description 08/13/2024 11:15 AM INSPECTOR HEATING AND REFRIGERATION - 08/13/2024 11:59 PM INSPECTOR HEATING AND REFRIGERATION Hospital Encounter [address] [address] Age-related osteoporosis without current pathological fracture (Primary Dx) Discharge Disposition: Discharge to home or self care 07/16/2024 3:37 PM INS[employer]OR HEATING AND REFRIGERATION - 07/16/2024 11:59 PM INSPECTOR HEATING AND REFRIGERATION Hospital Encounter [address] [address] Age-related osteoporosis without current pathological fracture (Primary Dx) Discharge Disposition: Discharge to home or self care 06/18/2024 3:43 PM INS[employer]OR HEATING AND REFRIGERATION - 06/18/2024 11:59 PM INSPECTOR HEATING AND REFRIGERATION Hospital Encounter [address] [address] Age-related osteoporosis without current pathological fracture (Primary Dx) Discharge Disposition: Discharge to home or self care 05/21/2024 3:45 PM INSPECTOR HEATING AND REFRIGERATION - 05/21/2024 11:59 PM INSPECTOR HEATING AND REFRIGERATION Hospital Encounter [address] [address] Age-related osteoporosis without current pathological fracture (Primary Dx) Discharge Disposition: Discharge to home or self care 05/14/2024 Orders Only [address] [address] Carmen Waters RN from Last 3 Months Family History Medical History Relation Name Comments Curvature of spine Mother Curvature of spine - (Added by TW Conv) Osteoporosis Mother Family history of osteoporosis - (Added by TW Conv) Relation Name Status Comments Mother Social History Tobacco Use Types Packs/Day Years Used Date Smoking Tobacco: Former Smokeless Tobacco: Never Comments Unknown Sex and Gender Information Value Date Recorded Sex Assigned at Not on file Legal Sex Female 5:50 AM INSPECTOR HEATING AND REFRIGERATION Gender Identity Female 06/15/2018 11:23 AM INSPECTOR HEATING AND REFRIGERATION Sexual Orientation Straight 07/26/2021 8: 23 AM INSPECTOR HEATING AND REFRIGERATION Obstetrics History Last Filed Vital Signs Vital Sign Reading Time Taken Comments Blood Pressure 150/72 08/13/2024 11:22 AM INSPECTOR HEATING AND REFRIGERATION Pulse 109 08/13/2024 11:22 AM INSPECTOR HEATING AND REFRIGERATION Temperature 36.3 C (97.4 F) 08/13/2024 11:22 AM INSPECTOR HEATING AND REFRIGERATION Respiratory Rate 24 08/13/2024 11:22 AM INSPECTOR HEATING AND REFRIGERATION Oxygen Saturation 98% 08/13/2024 11:22 AM INSPECTOR HEATING AND REFRIGERATION Inhaled Oxygen Concentration - - Weight 76.2 kg (168 lb) 08/13/2024 11:22 AM INSPECTOR HEATING AND REFRIGERATION Height 158.1 cm (5' 2.25 ) 01/05/2024 12:42 PM C DT Body Mass Index 30.48 01/05/2024 12:42 PM CDT Plan of Treatment Health Maintenance Due Date Last Done Comments Depression Screening 1950 Fall Risk Assessment 1950 Hepatitis C Screening 1950 DTaP/Tdap/Td Vaccine (1 - Tdap) 02/03/1959 Hepatitis B Screening 02/03/1966 Zoster Vaccine (1 of 2) 02/03/1998 Well Visit 65+ 02/03/2013 Influenza Vaccine (#1) 2024 9, 03/25/2018, 04/15/2017, Additional history exists Osteoporosis Screening-Bone Density Scan 01/04/2026 01/05/2024, 10/01/2022, 07/31/2021, Additional history exists Pneumococcal vaccine 65+ Completed 019, 03/25/2018, 09/02/2015 Breast Cancer Screening-Mammogram Discontinued 02/16/2024, 02/16/2024, 02/13/2023, Additional history exists Procedures Procedure Name Priority Date/Time Associated Diagnosis [...] Bone mineral density was performed on a [employer] Discovery Densitometer. Based on machine cross-calibration and [...] by the International Society of Clinical Densitometry. [id number] Vandana Schaffer MD IMG DXA PROCEDURES Final Re sult from Last 3 Months or Most Recently Relevant to Health Maintenance Insurance [id number] [id number] MEDICARE [facility] MEDICARE [facility] COMMERCIAL GENERIC MEDICARE [facility] Care Teams Air Commodore Relationship Specialty Start Date End Date Anibal Toledo MD [address] [place] [id number] PCP - General 12/10/16
--- OUTSIDE RECORDS SUMMARY | 2024-08-14 07:51 | XMS_ITS | Data Portability ---
Author Organization [facility], Main Office Address [address] [place] [address] Care Team Providers Care Transportation Consultant Name Role Phone TALHA ZUNIGA Primary Care Provider [phone] TALHA ZNUIGA Referring Provider [phone] Assessment Encounter Date Assessment Date Assessment LastModified by Organization Details LastModified Time 09/04/2022 09/04/2022 HPI: Patient returns. She is now 9 weeks out from large rotator cuff repair left shoulder with dermal patch. She has been in therapy working on range of motion exercises no strengthening yet. She is still having pain and She points to the mid humerus were she feels it when she is using arm. Physical exam: Patient has active elevation 125 passively to 145 external rotation 80 internal rotation is to T12. She has some mild pain with range of motion. She does have just minimal weakness with external rotation today. She has difficult time testing abduction strength due to pain. Incisions well healed. Impression patient is doing well 9 weeks out from large rotator cuff repair left shoulder. At this point we will start Thera-Band strengthening exercises and continue with her progressive range of motion as well instructions written for therapy. I advised her no lifting pushing or pulling more than about 3 lb with the left arm. We will see her back in a month for re-evaluation. Not available 09/04/2022 11:45:51 10/02/2022 10/02/2022 patient returns. She is now on 92 days out from left rotator cuff repair with patch. Overall she is doing well. She remains in physical therapy. Having minimal discomfort with the arm. She is using it for most daily activities at this point. Physical exam: Patient has active elevation to 145 external rotation 80 internal rotation is to T12. She has minimal discomfort with range of motion. She still has mild weakness with external rotation as well as abduction. No pain with strength testing. Impression: Patient has excellent range of motion at this point. She is still lacking strength and this is going to take time. I encouraged her to continue with her home exercise program on a daily basis. She has Thera-Bands at home. She wants to continue with therapy and I have written orders for this. I advised her that it is going to be 6 months before full healing is completed. She may continue to have improvements of strength in the shoulder for the next year or 2 if she continues to work at it. Overall she is very happy and satisfied with the way things are progressing. I think at this point we can see her back as needed. Not available 10/02/2022 12:08:01 Plan of Treatment Reminders Order Date Submit Date Provider Last Modified By Organization Details Last Modified Time Details Appointments None record ed. Lab None record ed. Referral None record ed. Procedures None record ed. Surgeries None record ed. Imaging None record ed. Medication Orders None record ed. Patient TargetsNo targets recorded. Patient InstructionsNo instructions recorded. Reason for Referral None Reported. Results Created Date Observation Date Name Description Value Unit Range Abnormal Flag Note LastModifiedBy Organization Detail LastModifiedTime Result Notes None recorded. Problems Name Problem SNOMED Code Status Onset Date Resolution Date Notes Provider Name and Address Organization Details Recorded Time Rupture of rotator cuff of left shoulder 0309866808183 9102 Active 2022 Not Available [facility] 3 17:45:34 Pain of left shoulder joint 5652732976104 9109 Active 2021 Not Available [facility] 3 17:45:34 Partial thickness rotator cuff tear 653566120 Active 2022 Not Available [facility] 3 17:45:34 Full thickness rotator cuff tear 028363182 Active 2022 Not Available [facility] 3 17:45:34 Full thickness rotator cuff tear 591079136 Active 2022 Not Available [facility] 3 17:45:34 Enthesopat hy of hip region 55270369 Active Not Available [facility] 3 17:45:34 Closed fracture of neck of femur 456605496 Active Not Available [facility] 3 17:45:34 Osteoarthr itis 840773093 Active Not Available [facility] 3 17:45:34 Fracture of neck of femur 6512030 Active Not Available [facility] 3 17:45:35 History of total hip arthroplas ty 569969999234 Active 2021 Not Available [facility] 3 17:45:35 Problem Notes None recorded. Procedures Surgical History Date Name Laterality Status Provider Name and Address Organization Details Recorded Time Hysterectomy completed Not Available [facility] 08/28/2022 17:43:45 Imaging Results None recorded. Procedure Notes None recorded. Medical Equipment None Reported. Medications Name Sig Start Date Stop Date Status Note LastModified by Organization Details LastModified Time amoxicillin 500 mg capsule TAKE FOUR CAPSULES BY MOUTH ONE HOUR BEFORE APPOINTME NT active Not Available Not Available No t Available doxycycline hyclate 100 mg capsule TAKE 1 CAPSULE BY MOUTH TWICE DAILY 03/29 completed Not Available Not Available Not Available albuterol sulfate 2.5 mg/3 mL (0.083 %) solution for nebulizatio n INHALE 1 VIAL VIA NEBULIZER EVERY 4-6 HOURS NEEDED active Not Available Not Available No t Available azithromyci n 250 mg tablet TAKE 2 TABLETS BY MOUTH FOR 1 DAY THEN TAKE 1 TABLET BY MOUTH DAILY FOR 4 DAYS 08/28 completed Not Available Not Available Not Available fluconazole 150 mg tablet TAKE 1 TABLET BY MOUTH TODAY. REPEAT DOSE IN 3 DAYS 03/29 completed Not Available Not Available Not Available valacyclovi r 1 gram tablet 08/28 completed Not Available Not Available Not Available hydrocodone 5 mg-acetamin ophen 325 mg tablet TAKE 1 TABLET BY MOUTH TWICE DAILY NEEDED 08/14 completed Not Available Not Available Not Available fluocinonid e 0.05 % topical gel 08/28 completed Not Available Not Available Not Available alendronate 70 mg tablet 08/28 completed Not Available Not Available Not Available tramadol 50 mg tablet TAKE 1 TABLET BY MOUTH FOUR TIMES DAILY NEEDED FOR PAIN 10/02 completed Not Available Not Available Not Available oxycodone-a cetaminophe n 5 mg-325 mg tablet 08/28 completed Not Available Not Available Not Available amoxicillin 875 mg tablet 08/28 completed Not Available Not Available Not Available famotidine 20 mg tablet TAKE 1 TABLET BY MOUTH DAILY 09/04 completed Not Available Not Available Not Available lorazepam 0.5 mg tablet TAKE 1 TO 2 TABLETS BY MOUTH TWICE DAILY NEEDED active Not Available Not Available No t Available Kenalog 10 mg/mL suspension for injection In office injection administe red by the provider 08/02 completed [facility]: [phone] Not Available Not Available Not Available cephalexin 500 mg capsule TAKE 1 CAPSULE BY MOUTH EVERY 6 HOURS 08/02 completed Not Available Not Available Not Available hydrochloro thiazide 12.5 mg capsule 08/28 completed Not Available Not Available Not Available omeprazole 20 mg capsule,del ayed release TAKE 1 CAPSULE BY MOUTH EVERY DAY active Not Available Not Available No t Available lorazepam 1 mg tablet TAKE 1 TABLET BY MOUTH 30 MINUTES PRIOR TO MRI 03/29 completed Not Available Not Available Not Available albuterol sulfate HFA 90 mcg/actuati on aerosol inhaler INHALE 1 TO 2 PUFFS BY MOUTH EVERY 4 TO 6 HOURS NEEDED FOR SHORTNESS OF BREATH OR WHEEZING active Not Available Not Available No t Available fluocinonid e 0.05 % topical cream APPLY TOPICALLY TO THE AFFECTED AREA TWICE DAILY DIRECTED NEEDED active Not Available Not Available No t Available oxycodone 5 mg tablet TAKE 1 TABLET BY MOUTH EVERY 4 HOURS NEEDED FOR PAIN active Not Available Not Available No t Available enoxaparin 40 mg/0.4 mL subcutaneou s syringe 08/28 completed Not Available Not Available Not Available Vigamox 0.5 % eye drops 08/28 completed Not Available Not Available Not Available BD Ultra-Fine Mini Pen Needle 31 gauge x /16 08/28 completed Not Available Not Available Not Available lidocaine (PF) 5 mg/mL (0.5 %) injection solution In office injection administe red by the provider 08/02 completed Not Available Not Available Not Available hydrochloro thiazide 12.5 mg tablet TAKE 1 TABLET BY MOUTH EVERY DAY NEEDED 03/29 completed Not Available Not Available Not Available Anoro Ellipta 62.5 mcg-25 mcg/actuati on powder for inhalation INHALE 1 PUFF BY MOUTH EVERY 24 HOURS active Not Available Not Available No t Available Super B Maxi Complex 2021 active Not Available Not Available Not Avai lable Paxlovid 150 mg-100 mg tablets in a dose pack (Renal Dose) FOLLOW PACKAGE DIRECTION S 08/02 completed Not Available Not Available Not Available Vitals Date Recorded Body height Body height Body height Provider Name and Address Organization Details Last Updated DateTime 08/28/2022 154.94 cm 154.94 cm 154.94 cm Not Available [facility] 08/28/2022 17:45:21 Date Recorded Body height Provider Name an d Address Organization Details Last Updated DateTime 09/04/2022 154.94 cm Laura Villegas [facility] [employer] [facility] 09/04/2022 11:27:22 Date Recorded Body height Body mass index (BMI) Body weight Provider Name and Address Organization Details Last Updated DateTime 10/02/2022 154.94 cm 30.4 kg/m2 91547.37 g Laura Villegas [employer] 10/02/2022 11:50:36 Social History Question Answer Notes LastModified by Organizat ion Details LastModified Time Tobacco Smoking Status Never Smoker Not Available [facility] 08/28/2022 17:43:42 What Is Your Level Of Alcohol Consumption? Occasional [id number] Information not available 08/28/2022 Sex: Unknown Functional Status None recorded. Mental Status None recorded. Family History Relationship Description Onset Age of this Age Resolved Age Notes LastModified by Organization Details LastModified Time Mother Family history of malignant neoplasm [id number] Not available 08/28/2022 17:43:46 Mother Hypertensive disorder [id number] Not available 08/28/2022 17:43:46 Medical History Condition Response BLINDNESS N KIDNEY STONES N MRSA N CARPAL TUNNEL SYNDROME N LUNG DISEASE/DISORDER N HISTORY OF DRUG ABUSE N RADIATION / CHEMOTHERAPY N COPD Y SPORTS INJURY N ANKLE PAIN N BLOOD DISEASES N SCHIZOPHRENIA N SHINGLES N SHOULDER PAIN N DEPRESSION (INCLUDING POST ) N BOWEL PROBLEMS N STROKE/TIA N ULCERS N KNEE PAIN N BENIGN PROSTATIC HYPERPLASIA N OBESITY N GERD/NAUSEA N ANEURYSM N URINARY/BLADDER/KIDNEY PROBLEMS N CORONARY ARTERY DISEASE (CAD) N ADDICTION CONCERNS N USE OF BLOOD THINNERS N SKIN PROBLEMS N EMPHYSEMA N MUSCLE,JOINT OR BONE PROBLEMS N DVT N STOMACH ULCERS N BLOOD CLOTS N USE OF NSAIDS N CONCUSSION OR SPINAL TRAUMA N NEUROPATHY N AIDS/HIV N FRACTURES N HYPERTENSION N ELBOW PAIN N TOURETTE'S N Metal allergy N ANXIETY DISORDER N BLOOD TRANSFUSION N ANEMIA/BLOOD DISORDER N BIPOLAR DISORDER N BRONCHITIS N OSTEOARTHRITIS N TUBERCULOSIS N FOOT PROBLEM N HEART VALVE DISORDERS N ALLERGIES/HAYFEVER N SOFT TISSUE INJURY N INFECTIOUS DISEASE N HEART ARRHYTHMIA N INSOMNIA N HIGH CHOLESTEROL / HYPERLIPIDEMIA N RHEUMATOID ARTHRITIS N EDEMA N CHRONIC PAIN SYNDROME N CAROTID BLOCKAGE N BACK / NECK PROBLEMS N HAVE YOU BEEN HOSPITALIZED OR SEEN IN [facility] IN THE PAST YEAR ? N BURSITIS N HERNIATED DISC N DIALYSIS N FIBROMYALGIA N OSTEOPOROSIS Y ARTHRITIS N NO SIGNIFICANT PAST MEDICAL HISTORY N PERIPHERAL NEUROPATHY N DIABETES, TYPE N HEARTBURN / REFLUX N HEPATITIS / LIVER DISEASE N GOUT N ALZHEIMER'S DISEASE N SLEEP DISORDER N HERPES N HEADACHES/MIGRAINES N SEIZURES/EPILEPSY N VASCULAR DISEASE N Blood Disorder N HIP PAIN N DIZZINESS N HEAD TRAUMA OR INJURY N HEART DISEASE/HEART PROBLEMS N MULTIPLE SCLEROSIS N CANCER: SPECIFY N CARDIAC ARRHYTHMIA N ANESTHESIA COMPLICATIONS N ATRIAL FIBRILLATION N AUTOIMMUNE DISEASE N Gynecological HistoryNo gynecological history recorded. Obstetrics History GPAL:G 0 P 0 0 0 0 Past Encounters Encounter ID Performer Location Encounter Start Date Encounter Closed Date Diagnosis/Indication Diagnosis SNOMED-CT Code Diagnosis ICD10 Code Diagnosis Note [id number] [facility] [address] [place], [place] [address] 09/03/2021 00:00:00 09/03/2021 14:39:01 [id number] [facility] [address] [place], [place] [address] 11/02/2021 00:00:00 11/12/2021 13:48:41 [id number] [facility] [address] [place], [place] [address] 12/07/2021 00:00:00 12/17/2021 16:48:51 [id number] [facility] [address] [place] [address] 12/17/2021 00:00:00 12/17/2021 17:12:00 [id number] [facility] [address] [place], [place] [address] 03/29/2022 00:00:00 04/04/2022 12:46:29 [id number] [facility] [address] [place] [address] 07/17/2022 00:00:00 07/17/2022 15:03:31 [id number] [facility] [address] [place] [address] 08/02/2022 00:00:00 08/02/2022 11:54:12 [id number] [facility] [address] [place] [address] 08/14/2022 00:00:00 08/14/2022 11:55:32 [id number] KRISTEN Zuniga [facility] [address] [place] [address] 09/04/2022 11:24:03 09/04/2022 11:51:08 Rupture of rotator cuff of left shoulder 5546030453 9525933 M75.102 [id number] KRISTEN Zuniga [facility] [address] [place] [address] 10/02/2022 11:27:07 10/02/2022 13:48:56 Partial thickness rotator cuff tear 867243347 M75.102 Health Concerns Section Related Observation LastModified by Organization Detai ls LastModified Time None Recorded Concern Status LastModified by Organization Details LastModified Time None Recorded Advance Directives Directive None Recorded Payers Encounter Date Sequence Insurance Name Policy Number Policy Zuniga Covered Member ID [id number] Member ID Guarantor Name 09/04/2022 1 [place] Berta A Stueber [id number] Berta A Stueber 09/04/2022 2 [employer] (MEDICARE SUPPLEMENT) Berta A Stueber [id number] Berta A Stueber 10/02/2022 1 [place] Berta A Stueber [id number] Berta A Stueber 10/02/2022 2 [employer] (MEDICARE SUPPLEMENT) Berta A Stueber [id number] Berta A Stueber OBGyn Episode No OBEpisode recorded.
== END 2024-08-14 07:45 | disposition home or self-care (01) ==
PROVIDERS: PCP Physician Assistant Medical; Visit Provider Internal Medicine Gastroenterology
DX: K76.9 Liver disease, unspecified (principal); K74.60 Unspecified cirrhosis of liver; K80.20 Calculus of gallbladder without cholecystitis without obstruction
CPT/HCPCS: 74183; A9577

== ENCOUNTER 2025-01-07 01:14 | Day surgery (SDC) | payer MEDICARE, SELFPAY ==
[2025-01-06 08:20] VITALS: BMI 30.1
--- OUTSIDE RECORDS SUMMARY | 2025-01-07 01:20 | XMS_ITS | Data Portability ---
Author Organization [place] [facility], Main Office Address [address] [place] [address] Care Team Providers Care Static Balancer Name Role Phone TALHA ZUNIGA Primary Care Provider TALHA ZUNIGA Referring Provider [phone] Assessment Encounter Date Assessment Date Assessment LastModified [...] Rupture of rotator cuff of left shoulder 8784009843784 9102 Active 2022 Not Available [facility] 3 17:45:34 Pain of left shoulder joint 7483192735062 9109 Active 2021 Not Available [facility] 3 17:45:34 Partial thickness rotator cuff tear 858375979 Active 2022 Not Available [facility] 3 17:45:34 Full thickness rotator cuff tear 306764901 Active 2022 Not Available [facility] 3 17:45:34 Full thickness rotator cuff tear 897635292 Active 2022 Not Available [facility] 3 17:45:34 Enthesopat hy of hip region 09239629 Active Not Available [facility] 3 17:45:34 Closed fracture of neck of femur 369947060 Active Not Available [facility] 3 17:45:34 Osteoarthr itis 980009828 Active Not Available [facility] 3 17:45:34 Fracture of neck of femur 5492155 Active Not Available [facility] 3 17:45:35 History of total hip arthroplas ty 954759457013 Active 2021 Not Available [facility] 3 17:45:35 Problem Notes None recorded. Procedures Surgical History Date Name Laterality Status Provider Name and Address Organization Details Recorded Time Hysterectomy completed Not Available [facility] 08/28/2022 17:43:45 Imaging Results None recorded. Procedure [...] administe red by the provider 08/[address] [facility]: [id number] Not Available [...] Ultra-Fine Mini Pen Needle 31 gauge x 3/16 08/28 completed Not Available Not Available Not [...] mg-100 mg tablets in a dose pack (Moderate Renal Dose) FOLLOW PACKAGE DIRECTION S 08/02 completed Not Available Not Available Not Available Vitals Date Recorded Body height Provider Name an d Address Organization Details Last Updated DateTime 07/17/2022 154.94 cm Not Available [facility] 3 17:45:20 Date Recorded Body height Provider Name an d Address Organization Details Last Updated DateTime 08/02/2022 154.94 cm Not Available [facility] 3 17:45:21 Date Recorded Body height Provider Name an d Address Organization Details Last Updated DateTime 08/14/2022 154.94 cm Not Available [facility] 3 17:45:21 Date Recorded Body height Provider Name an d Address Organization Details Last Updated DateTime 09/04/2022 154.94 cm Laura VillegasTeralynk 09/04/2022 11:27:22 Date Recorded Body height Body mass index (BMI) Body weight Provider Name and Address Organization Details Last Updated DateTime 10/02/2022 154.94 cm 30.4 kg/m2 78022.37 g Laura [employer] 10/02/2022 11:50:36 Social History None recorded. Functional Status Question Answer Note LastModified by Organizat ion Details LastModified Time What is your level of alcohol consumption? Occasional [id number] Information not available 08/28/2022 Mental Status None recorded. Family History Relationship Description Onset Age of this Age Resolved Age Notes LastModified by Organization Details LastModified Time Mother Family history of malignant neoplasm [id number] Not available 08/28/2022 17:43:46 Mother Hypertensive disorder [id number] Not available 08/28/2022 17:43:46 Medical History Condition [...] FOOT PROBLEM N HEART VALVE DISORDERS N SOFT TISSUE INJURY N ALLERGIES/HAYFEVER N INFECTIOUS DISEASE N HEART ARRHYTHMIA N INSOMNIA N RHEUMATOID ARTHRITIS N HIGH CHOLESTEROL / HYPERLIPIDEMIA N EDEMA N CHRONIC PAIN SYNDROME N CAROTID BLOCKAGE N BACK / NECK PROBLEMS N HAVE YOU BEEN HOSPITALIZED OR SEEN IN [facility] ER IN THE PAST YEAR ? N BURSITIS N HERNIATED DISC N DIALYSIS N FIBROMYALGIA N OSTEOPOROSIS Y ARTHRITIS N NO SIGNIFICANT PAST MEDICAL HISTORY N PERIPHERAL NEUROPATHY N DIABETES, TYPE N HEARTBURN / REFLUX N HEPATITIS / LIVER DISEASE N GOUT N SLEEP DISORDER N ALZHEIMER'S DISEASE N HERPES N SEIZURES/EPILEPSY N HEADACHES/MIGRAINES N VASCULAR DISEASE N HIP PAIN N Blood Disorder N DIZZINESS N HEAD TRAUMA OR INJURY N HEART DISEASE/HEART PROBLEMS N MULTIPLE SCLEROSIS N CARDIAC ARRHYTHMIA N CANCER: SPECIFY N ANESTHESIA COMPLICATIONS N ATRIAL FIBRILLATION N AUTOIMMUNE DISEASE N Gynecological HistoryNo gynecological history recorded. Obstetrics History GPAL:G 0 P 0 0 0 0 Past Encounters Encounter ID Performer Location Encounter Start Date Encounter Closed Date Diagnosis/Indication Diagnosis SNOMED-CT Code Diagnosis ICD10 Code Diagnosis Note [id number] Mainor Roberto MD [facility] [place] [address] [place] [address] 09/03/2021 00:00:00 09/03/2021 14:39:01 [id number] Mainor Roberto MD [facility] [place] [address] [address] [place] [address] 11/02/2021 00:00:00 11/12/2021 13:48:41 [id number] [facility] [place] [address] [facility] [place] [address] 12/07/2021 00:00:00 12/17/2021 16:48:51 [id number] Mainor Roberto MD [facility] [place] [address] [place] [address] 12/17/2021 00:00:00 12/17/2021 17:12:00 [id number] Mainor Roberto MD [facility] [place] [address] [place] [address] 03/29/2022 00:00:00 04/04/2022 12:46:29 [id number] Mainor Roberto MD [facility] [place] [address] [place] [address] 07/17/2022 00:00:00 07/17/2022 15:03:31 [id number] Mainor Roberto MD [facility] [place] [address] [place] [address] 08/02/2022 00:00:00 08/02/2022 11:54:12 [id number] Mainor Roberto MD [facility] [place] [address] [place] [address] 08/14/2022 00:00:00 08/14/2022 11:55:32 [id number] Mainor Roberto MD [facility] [place] [address] [place] [address] 09/04/2022 11:24:03 09/04/2022 11:51:08 Rupture of rotator cuff of left shoulder 1230787482 3391270 M75.102 [id number] Mainor Roberto MD [facility] [place] [address] [place] [address] 10/02/2022 11:27:07 10/02/2022 13:48:56 Partial thickness rotator cuff tear 768168649 M75.102 Health Concerns Section Related Observation LastModified by Organization Detai ls LastModified Time None Recorded Concern Status LastModified by Organization Details LastModified Time None Recorded Advance Directives Directive None Recorded Payers Insurance Date Sequence Insurance Name Policy Number Policy Zuniga Covered Member ID [id number] Member ID Guarantor Name 10/02/2022 1 [place] Berta Jansen [id number] Berta Jansen 10/02/2022 2 [employer] (MEDICARE SUPPLEMENT) Berta Jansen [id number] Berta Jansen OBGyn Episode No OBEpisode recorded.
--- OUTSIDE RECORDS SUMMARY | 2025-01-07 01:20 | XMS_ITS | Clinical Summary ---
Author Organization [facility] Address [address] [place] [address] Care Team Providers Care Beef Pluck Trimmer Name Role Phone Iona Marrufo Primary Care Provider [phone] Source Comments [facility],non-owned Affiliates and Associated Physician Practices is amultiple site organization consisting of ambulatory clinics and hospital sitesin [place], [place], [place] and [place]. This disclosure is being madepursuant to the Care Everywhere program and may not contain all information available regarding this patient. Last updated 18.[facility] Allergies No known active allergies Medications * Be aware that medications may not be up to date on this document. Alwaysverify current medications with the patient. umeclidinium-vi lanterol (Anoro Ellipta) 62.5-25 MCG/ACT inhaler Anoro Ellipta 62.5 mcg-25 mcg/actuation powder for inhalation INHALE 1 PUFF BY MOUTH EVERY 24 HOURS Active albuterol (Proventil;Vent mackenzie) (2.5 MG/3ML) 0.083% nebulizer solution albuterol sulfate [...] 2 TABLETS BY MOUTH TWICE DAILY NEEDED 3 Active Magnesium 200 MG TABS 400 mg Active omeprazole (PriLOSEC) 20 MG capsule omeprazole 20 mg capsule,delayed release TAKE 1 CAPSULE BY MOUTH EVERY DAY 3 Active Active Problems Problem Noted Date Diagnosed Date Other cirrhosis of liver 11/28/2022 Overview (12/02/2022): 11/28/22 Fibroscan CAP 274, LSM 28.9 kPa Family History Medical History Relation Name Comments [...] e alcohol) occassional, few times a year Comments Unknown Sex and Gender Information Value Date Recorded Sex Assigned at Not on file Legal Sex Female 2:24 PM CDT Gender Identity Not on file Sexual Orientation Not on file Last Filed Vital Signs Vital Sign Reading Time Taken Comments Blood Pressure 167/92 05/11/2024 12:34 PM MANAGER FREELANCE Pulse 84 05/11/2024 12:31 PM MANAGER FREELANCE Temperature 36.6 C (97.8 F) 05/11/2024 12:31 PM MANAGER FREELANCE Respiratory Rate 18 11/28/2022 2:33 PM CDT Oxygen Saturation 96% 05/11/2024 12:31 PM MANAGER FREELANCE Inhaled Oxygen Concentration - - Weight 77.8 kg (171 lb 9.6 oz) 05/11/2024 12:31 PM MANAGER FREELANCE Height 157.5 cm (5' 2) 05/11/2024 12:31 PM MANAGER FREELANCE Body Mass Index 31.39 05/11/2024 12:31 PM MANAGER FREELANCE Plan of Treatment Health Maintenance Due Date [...] - 1-dose 75+ series) 02/03/2023 COVID-19 VACCINE (1 - season) 2024 DEPRESSION SCREENING 06/30/2024 INFLUENZA VACCINE (#1) 2025 BONE DENSITY TESTING Completed 07/31/2021, 06/19/2020, 06/21/2019, Additional history exists HEPATITIS C SCREENING Completed 11/28/2022 HIB VACCINE Aged Out No longer eligi ble based on patient's age to complete this topic HPV VACCINE Aged Out No longer eligi ble based on patient's age to complete this topic MENINGOCOCCAL (Group B) VACCINE SHARED DECISION-MAKING Aged Out No longer eligible based on patient's age to complete this topic MENINGOCOCCAL GROUPS A/C/Y/W VACCINE Aged Out No longer eligible based on patient's age to complete this topic Goals Goal Patient Goal Type Associated Problems Recent Progress Patient-Stated? Author Medication Management General On track( 024 12:34 PM MANAGER FREELANCE) Kathrin Bauman RN Note: Expected end date: [...] 4:21 PM CDT Other cirrhosis of liver from Last 3 Months or Most Recently Relevant to Health Maintenance Results * HEPATITIS C ANTIBODY (11/28/2022 4:21 PM CDT) Hepatitis C Antibody Non-react selena Non-reac tive 11/28/2022 8:10 PM CDT [facility] Comment:Hepatitis C Antibody screen indicates [...] CDT Steven Mondragon MD LAB - CHEMISTRY ORDERABLES Fi nal Result [facility] [address] [place] [address], [facility] [phone] from Last 3 Months or Most Recently Relevant to Health Maintenance Insurance MEDICARE MEDICARE [facility] Care Teams Beef Pluck Trimmer Relationship Specialty Start Date End Date Ioan Marrufo PA [address] [place] [id number] PCP - General Physician Sde 11/28/22
--- OUTSIDE RECORDS SUMMARY | 2025-01-07 01:20 | XMS_ITS | Clinical Summary ---
Author Organization [facility] Address [facility] [place] [address] Care Team Providers Care Camp Coordinator Name Role Phone Iona Marrufo PA-C Primary Care Provider [phone] Allergies No known active allergies Medications ondansetron 4 MG disintegrating tablet Take 1 tablet (4 mg total) by mouth every 8 (eight) hours as needed for Nausea. 9 tablet 9 Active Active Problems Problem Noted Date Diagnosed Date S/P left rotator cuff repair 07/05/2022 Family History Medical History Relation Comments Breast [...] Comments Blood Pressure 165/98 06/02/2024 9:30 PM BREWERY REPRESENTATIVE Pulse 88 06/02/2024 9:30 PM BREWERY REPRESENTATIVE Temperature 36.8 C (98.2 F) 06/02/2024 8:01 PM BREWERY REPRESENTATIVE Respiratory Rate 17 06/02/2024 9:30 PM BREWERY REPRESENTATIVE Oxygen Saturation 95% 06/02/2024 9:30 PM BREWERY REPRESENTATIVE Inhaled Oxygen Concentration - - Weight 72.6 kg (160 lb) 06/02/2024 8:01 PM BREWERY REPRESENTATIVE Height 172.7 cm (5' 8) 06/02/2024 8:01 PM BREWERY REPRESENTATIVE Body Mass Index 24.33 06/02/2024 8:01 PM BREWERY REPRESENTATIVE Plan of Treatment Health Maintenance Due Date Last Done Comments DTaP, Tdap and Td Vaccines (1 - Tdap) 02/03/1967 Zoster Vaccines (1 of 2) 02/03/1998 Annual Medicare Wellness Visit 02/03/2013 Pneumococcal Vaccine: 50+ Years (2 of 2 - PPSV23) 03/25/2019 03/25/2018 RSV Immunization or 60+ Years (1 - 1-dose 75+ series) 02/03/2023 COVID-19 Vaccine (1 - season) 2024 Dexa Scan (General) Completed 01/05/2024, 10/01/2022, 07/31/2021, Additional history exists Hepatitis C Completed 05/12/2024, 06/2022, 11/28/2022, Additional history exists Meningococcal B Vaccine Aged Out No l onger eligible based on patient's age to complete this topic Meningococcal Vaccine Aged Out No rob thalia eligible based on patient's age to complete this topic RSV Immunizations Under 20 Months Aged Out No longer eligible based on patient's age to complete this topic Insurance MEDICARE [facility] Care Teams Camp Coordinator Relationship Specialty Start Date End Date Iona Marrufo PA-C PCP - General NURSE PRACTITIONER 03/13/19
--- OUTSIDE RECORDS SUMMARY | 2025-01-07 01:20 | XMS_ITS | Encounter Summary ---
Author Organization [facility] Address [address] [place] [address] Phone Care Team Providers Care Painting Technician Name Role Phone Anibal Toledo MD Primary Care Provider [phone] Encounter Details Date Type Department Care Team (Late st Contact Info) Description 06/28/2019 Treatment [facility] [address] [facility] [address] [place] [id number] Vandana Schaffer MD [address] [facility] [address] [place] [address] Social History Tobacco Use Types Packs/Day Years Used Date Smoking Tobacco: Former Smokeless Tobacco: Never Comments Unknown Sex and Gender Information Value Date Recorded Sex Assigned at Not on file Legal Sex Female 5:50 AM VEGETABLE PREPARER Gender Identity Female 06/15/2018 11:23 AM VEGETABLE PREPARER Sexual Orientation Straight 07/26/2021 8: 23 AM VEGETABLE PREPARER documented as of this encounter Plan of Treatment Not on file documented as of this encounter Visit Diagnoses Not on filedocumented in this encounter Care Teams Painting Technician Relationship Specialty Start Date End Date Anibal Toledo MD [address] [place] [address] PCP - General 12/10/16 documented as of this encounter
--- OUTSIDE RECORDS SUMMARY | 2025-01-07 01:20 | XMS_ITS | Referral Summary ---
Author Organization [facility] Address [address] [place] [address] Care Team Providers Care Reconnaissance Man Name Role Phone Anibal Toledo MD Primary Care Provider [phone] Encounters Date Type Department Care Team Description 12/30/2024 11:25 AM CDT - 12/30/2024 11:59 PM CDT Hospital Encounter [address] [address] Age-related osteoporosis without current pathological fracture (Primary Dx) Discharge Disposition: Discharge to home or self care 12/03/2024 11:28 AM CDT - 12/03/2024 11:59 PM CDT Hospital Encounter [address] [address] Age-related osteoporosis without current pathological fracture (Primary Dx) Discharge Disposition: Discharge to home or self care 11/05/2024 11:16 AM CDT - 11/05/2024 11:59 PM CDT Hospital Encounter [address] [address] Age-related osteoporosis without current pathological fracture (Primary Dx) Discharge Disposition: Discharge to home or self care 10/08/2024 11:26 AM CDT - 10/08/2024 11:59 PM CDT Hospital Encounter [address] [address] Age-related osteoporosis without current pathological fracture (Primary Dx) Discharge Disposition: Discharge to home or self care from Last 3 Months Allergies Active Allergy Reactions Criticality Noted Date Comments Other Other (See comments) Low Latex Medications LORazepam (ATIVAN) 0.5 mg tablet 0 8 Active multivit-minerals /ferrous gluc (MULTI-RASHAD ORAL) VITAMIN B + VITAMIN C +ZINC 1 TABLET DAILY Active calcium citrate-vitamin D3 (CITRACAL WITH D) 315 mg-6.25 mcg (250 unit) per tablet Take 1 tablet by mouth daily Ca 600 mg & Vit D 400units Active cholecalciferol (VITAMIN D-3) 25 mcg (1,000 unit) tablet Take 1 tablet (1,000 Units total) by mouth daily Active magnesium gluconate 200 mg tabletIndications :hypomagnesemia 2 tablets (400 mg total) Active vitamin B complex capsule Take 1 capsule by mouth daily Active albuterol HFA (PROVENTIL HFA,VENTOLIN HFA,PROAIR HFA) 90 mcg/actuation inhaler albuterol sulfate HFA 90 mcg/actuation aerosol inhaler INHALE 1 TO 2 PUFFS BY MOUTH EVERY 4 TO 6 HOURS NEEDED FOR SHORTNESS OF BREATH OR WHEEZING Active fluocinonide (LIDEX) 0.05 % cream APPLY TOPICALLY TO THE AFFECTED AREA TWICE DAILY DIRECTED NEEDED 3 Active omeprazole (PriLOSEC) 20 mg capsule Take by mouth daily 3 Active umeclidinium-catrachito nteroL (ANORO ELLIPTA) 62.5-25 mcg/actuation blister with device Anoro Ellipta 62.5 mcg-25 mcg/actuation powder for inhalation INHALE 1 PUFF BY MOUTH EVERY 24 HOURS Active vitamin B complex with folic acid (Super B Maxi Complex) tablet 2 Active romosozumab-aqqg (Evenity) 105 mg/1.17 mL subcutaneous syringe Inject 2.34 mL (210 mg total) under the skin every 30 (thirty) days Active Active Problems Problem Noted Date Diagnosed Date Vitamin D deficiency disease 07/10/2016 Arthralgia of hip 07/05/2016 Arthritis of knee 07/05/2016 Pain 07/05/2016 Swelling 07/05/2016 Fracture of femur 01/03/2016 terminal clerk use of bisphosphonates 01/03/2016 Osteoporosis 01/03/2016 Social History Tobacco Use Types Packs/Day Years Used Date Smoking Tobacco: Former Smokeless Tobacco: Never Comments Unknown Sex and Gender Information Value Date Recorded Sex Assigned at Not on file Legal Sex Female 5:50 AM BOTTOM BRUSHER Gender Identity Female 06/15/2018 11:23 AM BOTTOM BRUSHER Sexual Orientation Straight 07/26/2021 8: 23 AM BOTTOM BRUSHER Last Filed Vital Signs Vital Sign Reading Time Taken Comments Blood Pressure 173/92 12/30/2024 11:25 AM CDT Pulse 80 12/30/2024 11:25 AM CDT Temperature 37 C (98.6 F) 12/30/2024 11:25 AM CDT Respiratory Rate 16 12/30/2024 11:25 AM CDT Oxygen Saturation 99% 12/30/2024 11:25 AM CDT Inhaled Oxygen Concentration - - Weight 76.2 kg (168 lb) 08/13/2024 11:22 AM BOTTOM BRUSHER Height 158.1 cm (5' 2.25) 01/05/2024 12:42 PM C DT Body Mass [...] 01/05/2024 2:47 PM CDT Patient Name: Berta Jansen Date of : 1950 Date of scan: 01/05/2024 Bone mineral density was performed on a [employer] Discovery Densitometer. Based on machine cross-calibration and [...] by the International Society of Clinical Densitometry. [id number] Vandana Schaffer MD IMG DXA PROCEDURES Final Re sult from Last 3 Months or Most Recently Relevant to Health Maintenance Insurance MEDICARE [facility] Address: [facility] [address] [place] [address] [facility] MEDICARE [facility] COMMERCIAL GENERIC MEDICARE [facility] Care Teams Reconnaissance Man Relationship Specialty Start Date End Date Anibal Toledo MD [address] [place] [address] PCP - General 12/10/16
--- OUTSIDE RECORDS SUMMARY | 2025-01-07 01:20 | XMS_ITS | Clinical Summary ---
Author Organization [facility] Address [address] [place] [address] Care Team Providers Care Retail Business Analyst Name Role Phone Anibal Toledo MD Primary Care Provider [phone] Allergies Active Allergy Reactions Criticality Noted Date [...] 07/05/2016 Swelling 07/05/2016 Fracture of femur 01/03/2016 moth exterminator use of bisphosphonates 01/03/2016 Osteoporosis 01/03/2016 Encounters Date Type Department Care Team Description 12/30/2024 11:25 AM CDT - 12/30/2024 11:59 PM CDT Hospital Encounter [address] [address] Age-related osteoporosis without current pathological fracture (Primary Dx) Discharge Disposition: Discharge to home or self care 12/03/2024 11:28 AM CDT - 12/03/2024 11:59 PM CDT Hospital Encounter [address] [address] Age-related osteoporosis without current pathological fracture (Primary Dx) Discharge Disposition: Discharge to home or self care 11/05/2024 11:16 AM CDT - 11/05/2024 11:59 PM CDT Hospital Encounter [facility] [address] [place] [address] Age-related osteoporosis without current pathological fracture (Primary Dx) Discharge Disposition: Discharge to home or self care 10/08/2024 11:26 AM CDT - 10/08/2024 11:59 PM CDT Hospital Encounter [address] [address] Age-related osteoporosis without current pathological fracture (Primary Dx) Discharge Disposition: Discharge to home or self care from Last 3 Months Family History Medical [...] on file Legal Sex Female 5:50 AM RECORDS ANALYSIS MANAGER Gender Identity Female 06/15/2018 11:23 AM RECORDS ANALYSIS MANAGER Sexual Orientation Straight 07/26/2021 8: 23 AM RECORDS ANALYSIS MANAGER Obstetrics History Last Filed Vital Signs Vital Sign Reading Time Taken Comments Blood Pressure 173/92 12/30/2024 11:25 AM CDT Pulse 80 12/30/2024 11:25 AM CDT Temperature 37 C (98.6 F) 12/30/2024 11:25 AM CDT Respiratory Rate 16 12/30/2024 11:25 AM CDT Oxygen Saturation 99% 12/30/2024 11:25 AM CDT Inhaled Oxygen Concentration - - Weight 76.2 kg (168 lb) 08/13/2024 11:22 AM RECORDS ANALYSIS MANAGER Height 158.1 cm (5' 2.25) 01/05/2024 12:42 PM C DT Body Mass Index 30.48 01/05/2024 12:42 PM CDT Plan of Treatment Health Maintenance Due Date Last Done Comments Depression Screening 1950 Fall Risk Assessment 1950 Hepatitis C Screening 1950 DTaP/Tdap/Td Vaccine (1 - Tdap) 02/03/1959 Hepatitis B Screening 02/03/1966 Zoster Vaccine (1 of 2) 02/03/1998 Well Visit 65+ 02/03/2013 Influenza Vaccine (#1) 2025 9, 03/25/2018, 04/15/2017, Additional history exists Osteoporosis [...] Bone mineral density was performed on a HoloValentin Uzhun Discovery Densitometer. Based on machine cross-calibration and [...] by the International Society of Clinical Densitometry. [id number] Vandana Schaffer MD [facility] DXA PROCEDURES Final Re sult from Last 3 Months or Most Recently Relevant to Health Maintenance Insurance MEDICARE [facility] MEDICARE [facility] COMMERCIAL GENERIC MEDICARE [facility] Care Teams Retail Business Analyst Relationship Specialty Start Date End Date Anibal Toledo MD [address] [place] [id number] PCP - General 12/10/16
--- OUTSIDE RECORDS SUMMARY | 2025-01-07 01:20 | XMS_ITS | Encounter Summary ---
Author Organization [facility] Address [address] [place] [address] Phone Care Team Providers Care Supervisory Clerk Name Role Phone Anibal Toledo MD Primary Care Provider [phone] Encounter Details Date Type Department Care Team (Late st Contact Info) Description 01/07/2024 Treatment [facility] [address] [facility] Office Building [address] [place] [id number] Vandana Schaffer MD [address] [place] [address] [address] [place] [address] Social History Tobacco Use Types Packs/Day Years Used Date Smoking Tobacco: Former Smokeless Tobacco: Never Comments Unknown Sex and Gender Information Value Date Recorded Sex Assigned at Not on file Legal Sex Female 5:50 AM CUSTOMER SERVICE RECEPTIONIST Gender Identity Female 06/15/2018 11:23 AM CUSTOMER SERVICE RECEPTIONIST Sexual Orientation Straight 07/26/2021 8: 23 AM CUSTOMER SERVICE RECEPTIONIST documented as of this encounter Plan of Treatment Not on file documented as of this encounter Visit Diagnoses Not on filedocumented in this encounter Care Teams Supervisory Clerk Relationship Specialty Start Date End Date Anibal Toledo MD [facility] [place] [address] PCP - General 12/10/16 documented as of this encounter
[2025-01-07 13:44] VITALS: BP 167/97; PULSE 88; RESP 20; TEMP 36.6; O2SAT 96; BMI 30.7
--- NOTE | 2025-01-07 13:51 | WPDANESEPPF ---
Anes - Initial Pre Proc Eval Procedure: Operation Date: 01/07/25 14:30 Proposed Procedures p Esophagogastroduodenoscopy - Rivas Wilson MD Date/Time: 01/07/25 13:51 Surgeon: Rivas Wilson MD Pre Op Diagnosis: Gastro-esophageal reflux disease without esophagit Patient Data Age: 74 Gender: F Height: 1.6 m Weight: 78.5 kg Last Vital Signs Temp 98 F 01/07/25 13:44 Pulse 88 01/07/25 13:44 Resp 20 01/07/25 13:44 BP 167/97 H 01/07/25 13:44 Pulse Ox 96 01/07/25 13:44 O2 Del Method Room Air 01/07/25 13:44 Allergies Allergy/AdvReac Type Severity Reaction Status Date / Time adhesive tape AdvReac Mild SKIN Verified 01/07/25 13:42 IRRITATION Home Medications ?Medication ?Instructions ?Recorded ?Confirmed ?Type calcium carbonate (Calcium 600) 1,200 mg PO DAILY 08/27/19 01/07/25 History multivitamin (Multiple Vitamins 1 tablet PO DAILY 08/27/19 01/07/25 History tablet) B-complex with vitamin C 1 tablet PO DAILY 06/18/22 01/07/25 History cholecalciferol (vitamin D3) 125 125 mcg PO DAILY 06/18/22 01/07/25 History mcg (5,000 unit) capsule magnesium 250 mg tablet 250 mg PO DAILY 06/18/22 01/07/25 History acetaminophen 500 mg tablet 500 mg PO Q6H pain #90 tabs 07/03/22 01/07/25 Rx (Acetaminophen Extra Strength) albuterol sulfate 90 mcg/actuation 1 - 2 puff inhalation Q4-6H PRN 12/15/23 01/06/25 Rx aerosol inhaler shortness of breath or wheezing #8.5 grams Anoro Ellipta 62.5 mcg-25 1 inh inhalation Q24H #60 ea 03/04/24 01/07/25 Rx mcg/actuation powder for inhalation (umeclidinium-vilanterol) fluocinonide 0.05 % topical cream 1 applic topical BID PRN itching 07/26/24 01/06/25 Rx #60 grams omeprazole 20 mg capsule,delayed 20 mg PO DAILY #90 caps 07/26/24 01/07/25 Rx release lorazepam 0.5 mg tablet 0.5 - 1 mg (1 - 2 x 0.5 mg) PO BID 07/30/24 01/07/25 Rx PRN Anxiety #60 tabs albuterol sulfate 2.5 mg/3 mL 2.5 mg (3 mL) inhalation Q6H j44.9 08/03/24 01/06/25 Rx (0.083 %) solution for nebulization j45.909 #300 mL tizanidine 2 mg tablet 2 mg PO TID PRN muscle spasticity 09/24/24 01/07/25 Rx #20 tabs montelukast 10 mg tablet 10 mg PO QHS #90 tabs 12/17/24 01/07/25 Rx (Singulair) Patient hx anesthesia problems: none Family hx anesthesia problems: none Results Review: All pre-operative results and documents have been reviewed as part of the pre-operative evaluation. [facility] Past Medical History Medical History Fatty liver History of colon polyps White coat syndrome with diagnosis of hypertension Cirrhosis GERD (gastroesophageal reflux disease) Anxiety Asthma Osteoporosis HTN (hypertension) History of tobacco abuse COPD (chronic obstructive pulmonary disease) Arthritis SOB (shortness of breath) Surgical History Surgical History History of bladder suspension procedure 1989 History of rotator cuff surgery 07/03/22 History of hip replacement 2016 left History of hysterectomy 1986- complete Family History Family History Father Heart disease Mother Carcinoma Dementia Sibling Liver failure Heart attack Social History Social History Social History: worked as an NeurAxontioneer; worked in the [employer] at [employer] x 18 years; Worked at an [employer] in [place] for 2 year 12/28/24 Patient declined SDOH Smoking packs per day: 1.5 Smoking cigarettes per day: 30.0 Years smoked: 15 Smoking pack-years: 22.50 Smoking status: Former smoker Tobacco type: cigarettes Second hand tobacco smoke exposure: No Smoking end date: 01/01/07 Alcohol intake: former Drinks per week: 2 Substance use: never Substance use type: does not use Do You Feel Safe in your Home?: Yes Lack of Transportation: No Lack of Food: Never True Current Housing: I Have Housing Concerned About Future Housing: No Difficulty Paying Gas/Electric Bills: No Difficulty Paying for Meds: No Currently Unemployed: No Education: High School Diploma/GED Difficulty w/ Childcare or Family Care: No Living arrangements: alone Occupation/Education: occupation Gender identity (if verbalized by the patient): Female Sexual Orientation (if Verbalized by the Patient): Straight or Heterosexual Spiritual care concerns: No Anes - Eval Final PreProcedure Day of Procedure 01/07/25 13:51 Patient weight: normal Heart: regular rate and rhythm Lungs: clear to auscultation Airway: Mallampati scale class II Neurological: alert and oriented Last oral intake: >/= 8 hours ASA classification: III Emergent: no Anesthetic plan: proceed Anesthesia type and monitoring: general GIVS and standard monitoring Results Review: All pre-operative results and documents have been reviewed as part of the pre-operative evaluation. Informed Consent: The patient's anesthetic plan and its attendant risks and benefits were discussed with the patient/family/POA. Questions were solicited and answers provided to the satisfaction of the patient/family/POA.
[2025-01-07] MEDS: LACTATED RINGERS 1,000 ML 150 ML IV CONT (13:54)
--- NOTE | 2025-01-07 14:45 | WPDHPUPDATE1 ---
History and Physical Update Update Date/Time: 01/07/25 14:45 History and Physical has been reviewed, including an updated exam of the patient. There are NO changes in the patient's condition. Risks, benefits, and alternatives have been discussed and questions answered. Patient agrees to proceed with procedure.
[2025-01-07 14:55] VITALS: BP 105/64; PULSE 84; RESP 23; O2SAT 95
[2025-01-07 15:05] VITALS: BP 107/47; PULSE 84; RESP 20; O2SAT 96
[2025-01-07 15:15] VITALS: BP 127/70; PULSE 79; RESP 21; O2SAT 95
== END 2025-01-07 15:22 | disposition home or self-care (01) ==
PROVIDERS: PCP Physician Assistant Medical; Referring Provider Nurse Practitioner Family; Visit Provider Internal Medicine Gastroenterology
PROC: 0DJ08ZZ Inspection of Upper Intestinal Tract, Via Natural or Artificial Opening Endoscopic (ICD-10-PCS; CPT 43235; principal; 2025-01-07 14:30)
DX: K21.9 Gastro-esophageal reflux disease without esophagitis (principal); K74.60 Unspecified cirrhosis of liver; K29.70 Gastritis, unspecified, without bleeding; K44.9 Diaphragmatic hernia without obstruction or gangrene; K75.81 Nonalcoholic steatohepatitis (NASH); I10 Essential (primary) hypertension; J44.9 Chronic obstructive pulmonary disease, unspecified; M81.0 Age-related osteoporosis without current pathological fracture; F41.9 Anxiety disorder, unspecified; M19.90 Unspecified osteoarthritis, unspecified site; Z79.51 Long term (current) use of inhaled steroids; Z98.890 Other specified postprocedural states; Z87.891 Personal history of nicotine dependence; Z86.0100 Personal history of colon polyps, unspecified; Z80.9 Family history of malignant neoplasm, unspecified; Z82.49 Family history of ischemic heart disease and other diseases of the circulatory system
CPT/HCPCS: 43235; J2003; J2704; J7120

== ENCOUNTER 2025-03-04 13:25 | Outpatient (CLI) | payer MEDICARE, SELFPAY ==
--- NOTE | ~2025-03-04 | XR_ITS ---
EXAMINATION: XR barium swallow DATE: 03/04/2025 14:13 INDICATION: Dysphagia TECHNIQUE: The patient drank thick barium, gas-producing crystals, and thin barium. Fluoroscopic spot radiographs of the hypopharynx and esophagus were obtained. A total of 1251 fluoroscopic images were recorded. Fluoroscopy exposure time was 2.3 minutes. Total DAP was 9.544 Gycm^2. COMPARISON: None. FINDINGS: The pharynx is symmetric and without evidence of mass lesion or mucosal irregularity. There is a tiny Zenker's diverticulum along the posterior margin of the hypopharynx. There was flash laryngeal penetration which rapidly cleared without aspiration. There is weakening of the primary peristaltic wave in the mid esophagus with multiple tertiary contractions in the mid to distal esophagus. There is ineffectual secondary peristalsis in the distal esophagus resulting in pooling of contrast in the distal esophagus which has a corkscrew appearance. The proximal esophagus appears patulous likely secondary to the more distal dysmotility. Esophageal mucosa appears normal with no ulcerations/erosio ns, masses or strictures. There is a small sliding-type hiatal hernia with gastroesophageal junction 4 cm above the level of the diaphragm. A single episode of gastroesophageal reflux of a minimal amount of contrast into the distalmost esophagus was observed with provocative maneuvers. IMPRESSION: 1. 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 2. Small sliding-type hiatal hernia with single episode of minimal gastroesophageal reflux with provocative maneuvers. 3. Flash laryngeal penetration without aspiration. 2. Tiny Zenker's diverticulum Reviewed, dictated and finalized at location A. IMPRESSION: 1. Esophageal dysmotility likely related to presbyesophagus with tertiary contr actions and corkscrew appearance to the mid to distal esophagus. 2. Small sliding-type hiatal hernia with single episode of minimal gastroesopha geal reflux with provocative maneuvers. 3. Flash laryngeal penetration without aspiration. 2. Tiny Zenker's diverticulum
--- OUTSIDE RECORDS SUMMARY | 2025-03-04 13:41 | XMS_ITS | Encounter Summary ---
Author Organization [facility] Address [address] [place] [address] Phone Care Team Providers Care Repeat Photocomposing Machine Operator Name Role Phone Anibal Toledo MD Primary Care Provider [phone] Encounter Details Date Type Department Care Team (Late st Contact Info) Description 01/07/2024 Treatment [facility] [address] [place] [address] Office [address] [place] [phone] Vandana Schaffer MD [address] [place] [address] [address] [place] [address] Social History Tobacco Use Types Packs/Day Years Used Date Smoking Tobacco: Former Smokeless Tobacco: Never Comments Unknown Sex and Gender Information Value Date Recorded Sex Assigned at Not on file Legal Sex Female 5:50 AM BUSINESS OFFICE ASSOCIATE Gender Identity Female 06/15/2018 11:23 AM BUSINESS OFFICE ASSOCIATE Sexual Orientation Straight 07/26/2021 8: 23 AM BUSINESS OFFICE ASSOCIATE documented as of this encounter Plan of Treatment Not on file documented as of this encounter Visit Diagnoses Not on filedocumented in this encounter Care Teams Repeat Photocomposing Machine Operator Relationship Specialty Start Date End Date Anibal Toledo MD [address] [place] [id number] PCP - General 12/10/16 documented as of this encounter
--- OUTSIDE RECORDS SUMMARY | 2025-03-04 13:41 | XMS_ITS | Clinical Summary ---
Author Organization [facility] Address [address] [place] [address] Care Team Providers Care Bill Checker Name Role Phone Anibal Toledo MD Primary Care Provider [phone] Allergies Active Allergy Reactions Criticality Noted Date [...] 07/05/2016 Swelling 07/05/2016 Fracture of femur 01/03/2016 FDC use of bisphosphonates 01/03/2016 Osteoporosis 01/03/2016 Encounters Date Type Department Care Team Description 12/30/2024 11:25 AM CDT - 12/30/2024 11:59 PM CDT Hospital Encounter [address] [address] Age-related osteoporosis without current pathological fracture (Primary Dx) Discharge Disposition: Discharge to home or self care 12/03/2024 11:28 AM CDT - 12/03/2024 11:59 PM CDT Hospital Encounter [address] [address] Age-related osteoporosis without current pathological fracture (Primary [...] on file Legal Sex Female 5:50 AM MOTOR INSTALLER Gender Identity Female 06/15/2018 11:23 AM MOTOR INSTALLER Sexual Orientation Straight 07/26/2021 8: 23 AM MOTOR INSTALLER Obstetrics History Last Filed Vital Signs Vital Sign Reading Time Taken Comments Blood Pressure 173/92 12/30/2024 11:25 AM CDT Pulse 80 12/30/2024 11:25 AM CDT Temperature 37 C (98.6 F) 12/30/2024 11:25 AM CDT Respiratory Rate 16 12/30/2024 11:25 AM CDT Oxygen Saturation 99% 12/30/2024 11:25 AM CDT Inhaled Oxygen Concentration - - Weight 76.2 kg (168 lb) 08/13/2024 11:22 AM MOTOR INSTALLER Height 158.1 cm (5' 2.25) 01/05/2024 12:42 [...] Bone mineral density was performed on a HoloScarecrow Visual Effects Discovery Densitometer. Based on machine cross-calibration and [...] by the International Society of Clinical Densitometry. [id number] Vandana Schaffer MD [facility] DXA PROCEDURES Final Re sult from Last 3 Months or Most Recently Relevant to Health Maintenance Insurance MEDICARE [facility] MEDICARE [facility] COMMERCIAL GENERIC MEDICARE [facility] Care Teams Bill Checker Relationship Specialty Start Date End Date Anibal Toledo MD [address] [place] [phone] PCP - General 12/10/16
--- OUTSIDE RECORDS SUMMARY | 2025-03-04 13:41 | XMS_ITS | Encounter Summary ---
Author Organization [facility] Address [address] [place] [address] Phone Care Team Providers Care Scrap Yard Worker Name Role Phone Anibal Toledo MD Primary Care Provider Encounter Details Date Type Department Care Team (Late st Contact Info) Description 06/28/2019 Treatment [facility] [address] [place] [address] Medical Office Building [address] [place] [phone] Vandana Schaffer MD [address] [place] [address] [address] [place] [address] Social History Tobacco Use Types Packs/Day Years Used Date Smoking Tobacco: Former Smokeless Tobacco: Never Comments Unknown Sex and Gender Information Value Date Recorded Sex Assigned at Not on file Legal Sex Female 5:50 AM DESK OFFICER Gender Identity Female 06/15/2018 11:23 AM DESK OFFICER Sexual Orientation Straight 07/26/2021 8: 23 AM DESK OFFICER documented as of this encounter Plan of Treatment Not on file documented as of this encounter Visit Diagnoses Not on filedocumented in this encounter Care Teams Scrap Yard Worker Relationship Specialty Start Date End Date Anibal Toledo MD [facility] [place] [address] PCP - General 12/10/16 documented as of this encounter
--- OUTSIDE RECORDS SUMMARY | 2025-03-04 13:45 | XMS_ITS | Clinical Summary ---
Author Organization [facility] Address [address] [facility] [place] [address] Care Team Providers Care Specimen Transporter Name Role Phone Iona Marrufo Primary Care Provider [phone] Source Comments [facility],non-owned Affiliates and Associated Physician Practices is amultiple site organization consisting of ambulatory clinics and hospital sitesin [place], [place], [place] and [place]. This disclosure is being madepursuant to the Care Everywhere program and may not contain all information available regarding this patient. Last updated 18.[facility] Allergies No known active allergies Medications * [...] Comments Blood Pressure 167/92 05/11/2024 12:34 PM SENIOR SOFTWARE DEVELOPER Pulse 84 05/11/2024 12:31 PM SENIOR SOFTWARE DEVELOPER Temperature 36.6 C (97.8 F) 05/11/2024 12:31 PM SENIOR SOFTWARE DEVELOPER Respiratory Rate 18 11/28/2022 2:33 PM CDT Oxygen Saturation 96% 05/11/2024 12:31 PM SENIOR SOFTWARE DEVELOPER Inhaled Oxygen Concentration - - Weight 77.8 kg (171 lb 9.6 oz) 05/11/2024 12:31 PM SENIOR SOFTWARE DEVELOPER Height 157.5 cm (5' 2) 05/11/2024 12:31 PM SENIOR SOFTWARE DEVELOPER Body Mass Index 31.39 05/11/2024 12:31 PM SENIOR SOFTWARE DEVELOPER Plan of Treatment Health Maintenance Due Date [...] Management General On track( 024 12:34 PM SENIOR SOFTWARE DEVELOPER) Kathrin Bauman RN Note: Expected end date: [...] selena Non-reac tive 11/28/2022 8:10 PM CDT [facility] Comment:Hepatitis C Antibody screen [...] LAB - CHEMISTRY ORDERABLES Fi nal Result [facility] [address] [place] [address], [facility] [phone] from Last 3 Months or Most Recently Relevant to Health Maintenance Insurance MEDICARE MEDICARE COMMERCIAL [facility] Care Teams Specimen Transporter Relationship Specialty Start Date End Date Iona Marrufo PA [address] [place] [id number] PCP - General Physician Digital Artist 11/28/22
== END 2025-03-04 13:26 | disposition home or self-care (01) ==
PROVIDERS: PCP Physician Assistant Medical; Visit Provider Internal Medicine Gastroenterology
DX: R13.19 Other dysphagia (principal); K44.9 Diaphragmatic hernia without obstruction or gangrene; K22.5 Diverticulum of esophagus, acquired
CPT/HCPCS: 74220